=== PATIENT | female | born 1960 | race Caucasian/White ===

== ENCOUNTER 2020-04-30 10:52 | Outpatient (REF) | payer BC, SELFPAY ==
[2020-04-30 14:55] LABS: Thyroid Stimulating Hormone 2.38 uIU/mL (0.32-4.0)
[2020-04-30 15:13] LABS: Folate 12.9 ng/mL (> or = 4.0); Vitamin B12 278 pg/mL (200-900)
== END 2020-04-30 10:53 | disposition home or self-care (01) ==
LOC: HO.HMGCLDS 10:52
PROVIDERS: PCP Internal Medicine; Visit Provider Internal Medicine
DX: I10 Essential (primary) hypertension (principal); E03.9 Hypothyroidism, unspecified
CPT/HCPCS: 36415; 82607; 82746; 84443

== ENCOUNTER 2020-07-11 11:49 | Outpatient (REF) | payer BC, SELFPAY ==
--- NOTE | ~2020-07-11 | XR_ITS ---
EXAMINATION: XR SHOULDER, RIGHT XR SHOULDER, LEFT CLINICAL INFORMATION: Bilateral shoulder pain. COMPARISON: None TECHNIQUE: Each shoulder is imaged in 4 views. There are a total of 8 views. FINDINGS: Right: There is normal bony mineralization and no fracture or dislocation. Distal right clavicle is borderline elevated, possibly related to prior low-grade sprain. The glenohumeral joint is normal. There are no erosive changes. No visible rotator cuff calcifications. Left: There is normal bony mineralization. No fracture or dislocation. The acromioclavicular alignment is normal. The glenohumeral joint shows no narrowing or erosive change. There is mild borderline spurring greater tuberosity. No visible rotator cuff calcifications. XR/XR shoulder RT min 2V IMPRESSION: 1. Right: Borderline elevation distal right clavicle, possibly related to prior low-grade sprain. 2. Left: Mild spurring greater tuberosity. 3. No fracture, dislocation, erosive changes, or visible rotator cuff calcifications.
--- NOTE | ~2020-07-11 | XR_ITS ---
EXAMINATION: XR SHOULDER, RIGHT XR SHOULDER, LEFT CLINICAL INFORMATION: Bilateral shoulder pain. COMPARISON: None TECHNIQUE: Each shoulder is imaged in 4 views. There are a total of 8 views. FINDINGS: Right: There is normal bony mineralization and no fracture or dislocation. Distal right clavicle is borderline elevated, possibly related to prior low-grade sprain. The glenohumeral joint is normal. There are no erosive changes. No visible rotator cuff calcifications. Left: There is normal bony mineralization. No fracture or dislocation. The acromioclavicular alignment is normal. The glenohumeral joint shows no narrowing or erosive change. There is mild borderline spurring greater tuberosity. No visible rotator cuff calcifications. XR/XR shoulder LT min 2V IMPRESSION: 1. Right: Borderline elevation distal right clavicle, possibly related to prior low-grade sprain. 2. Left: Mild spurring greater tuberosity. 3. No fracture, dislocation, erosive changes, or visible rotator cuff calcifications.
== END 2020-07-11 11:50 | disposition home or self-care (01) ==
LOC: HO.HMGCX 11:49
PROVIDERS: PCP Internal Medicine; Visit Provider Internal Medicine
DX: M25.512 Pain in left shoulder (principal); M25.511 Pain in right shoulder
CPT/HCPCS: 73030

== ENCOUNTER 2020-07-16 08:58 | Day surgery (SDC) | payer BC, SELFPAY ==
--- NOTE | 2020-07-15 08:39 | P.CONAN_ITS ---
Documented by User: Twila Teixeira 07/15/20 08:39 HPI - Anesthesia Eval Consult details Narrative: 59yo F for Colonoscopy [facility] Active Problems Active Problems: All Active Problems (Updated 05/08/20 @ 13:04 by Tamar Bermudez MD) Shoulder pain, bilateral (Acute) Colon cancer screening (Acute) Vitamin B12 deficiency (Acute) Mammogram declined (Acute) GERD (gastroesophageal reflux disease) (Acute) Hypercholesterolemia (Acute) Knee osteoarthritis (Acute) Hypothyroid (Acute) Hypertension (Acute) Obesity (Acute) Past Medical History Medical History Fatty liver GERD (gastroesophageal reflux disease) Hypercholesterolemia Hypertension Hypothyroid Knee osteoarthritis Mammogram declined Obesity PUD (peptic ulcer disease) Syncope Vitamin B12 deficiency Family History Family History Father No problems noted. Mother No problems noted. Paternal Uncle Lung cancer Esophageal cancer Maternal Uncle Myocardial infarction Surgical History Surgical History History of D&C History of surgery Social History Social History Smoking Status: Never smoker Use of substances other than those prescribed or required for medical reasons: No Advance Directives: No Advance Directives Information Provided: Yes Meds Allergies Allergy/AdvReac Type Severity Reaction Status Date / Time metoprolol Allergy Unknown epig pain? Verified 07/16/20 09:16 Home Medications Medication Instructions Recorded Confirmed Last Taken Type acetaminophen 650 mg 650 mg PO Q12H 02/02/20 05/08/20 Unknown History tablet,extended release cholecalciferol (vitamin D3) 25 25 mcg PO DAILY 02/02/20 05/08/20 Unknown History mcg (1,000 unit) capsule Exam Exam Date and Time: July 15, 2020 0839 Assessment and Plan Assessment Anesthesia Assessment: Chart Reviewed Documented by User: Katina Samson 07/16/20 11:17 [facility] Past Medical History Medical History Fatty liver GERD (gastroesophageal reflux disease) Hypercholesterolemia Hypertension Hypothyroid Knee osteoarthritis Mammogram declined Obesity PUD (peptic ulcer disease) Syncope Vitamin B12 deficiency Family History Family History Father No problems noted. Mother No problems noted. Paternal Uncle Lung cancer Esophageal cancer Maternal Uncle Myocardial infarction Surgical History Surgical History History of D&C History of surgery Social History Social History Smoking Status: Never smoker Use of substances other than those prescribed or required for medical reasons: No Advance Directives: No Advance Directives Information Provided: Yes Meds Allergies Allergy/AdvReac Type Severity Reaction Status Date / Time metoprolol Allergy Unknown epig pain? Verified 07/16/20 09:16 Home Medications Medication Instructions Recorded Confirmed Last Taken Type acetaminophen 650 mg 650 mg PO Q12H 02/02/20 05/08/20 Unknown History tablet,extended release cholecalciferol (vitamin D3) 25 25 mcg PO DAILY 02/02/20 05/08/20 Unknown History mcg (1,000 unit) capsule Exam Airway Mallampati Class: II TM Dist: >3cm Neck ROM: Full Loose/Missing/Broken Teeth: No Heart: RRR Lungs: CTA Assessment and Plan Assessment Anesthesia Assessment: Anesthesia Plan Discussed and Chart Reviewed Final Anesthetic Review NPO: Yes ASA Class: II Final Preanesthetic Review: Meds/Allgs Chart Reviewed, Consent Obtained/Reviewed and Anes Risks/Benef Reviewed Patient Risk: Low Procedure Risk: Low Anesthetic Plan Anesthetic Plan: MAC: Disposition: Standard PACU
[2020-07-16 09:16] VITALS: RESP 16; TEMP 36.6; BMI 33.3
[2020-07-16] MEDS: Lactated Ringers 1,000 ML 100 ML IVCONT (09:41)
--- NOTE | 2020-07-16 11:00 | MHC.SHP ---
Pre-Procedural Eval Section A The patient is an INPATIENT: No Changes since office visit: No Cold of Flu in the past 2 weeks, No New Medical Problems, No Changes in Medication and No Patient answered all questions The History & Physical has been completed within 30 days and I have reviewed it.: Yes Section B Chief Complaint: screening Allergies: Allergies Allergy/AdvReac Type Severity Reaction Status Date / Time metoprolol Allergy Unknown epig pain? Verified 07/16/20 09:16 Plan I have reviewed the history and physical and performed a pertinent physical examination on my patient. No changes have occurred unless specified.
[2020-07-16 11:31] VITALS: BP 108/63; PULSE 87; RESP 18; TEMP 36.3; O2SAT 96
--- NOTE | 2020-07-16 11:34 | PM.OP ---
Brief Operative Note Date of Service: 07/16/20 Pre-op diagnosis: screening Post-op diagnosis: same Procedure: colonoscopy Surgeon: Gumaro Marcial Anesthesia: MAC Estimated blood loss (mL): 0 Pathology: none sent Condition: stable Disposition: PACU
[2020-07-16 11:46] VITALS: BP 112/80; PULSE 78; RESP 18; O2SAT 98
--- NOTE | 2020-07-16 13:15 | OP_ITS ---
SURGEON: Gumaro Marcial MD INDICATIONS: Colon cancer screening and prior history of adenomatous colon polyps. PREOPERATIVE DIAGNOSIS: POSTOPERATIVE DIAGNOSIS: PROCEDURE PERFORMED: Colonoscopy to the terminal ileum. ESTIMATED BLOOD LOSS: COMPLICATIONS: ANESTHESIA: ASSISTANTS: SPECIMENS: MEDICATIONS: Monitored anesthesia care. DESCRIPTION OF PROCEDURE: History and physical performed. The risks and benefits of the procedure were explained to the patient. An informed consent was obtained. The patient was placed in left lateral decubitus position. A digital rectal exam was performed, it was found to be normal. The Olympus pediatric video colonoscope was introduced into the rectum and advanced to the cecum without difficulty. The cecum was identified by transillumination, palpation, and identification of ileocecal valve. Examination was performed. The scope was removed. She tolerated the procedure well and was returned to the recovery area in stable condition. FINDINGS: Limited examination of the terminal ileum was normal. The visualized colonic mucosa was normal. The quality of prep was good. No polyps were identified. Retroflexed examination showed small internal hemorrhoids. There was mild diverticulosis mainly involving the sigmoid. IMPRESSION: Normal colonoscopy. RECOMMENDATION: 1. Follow up as needed. 2. Repeat colonoscopy is recommended in 5 years because of personal history of colon polyps. MD CHERRI Bhatia/ALANA / [phone]
== END 2020-07-16 12:33 | disposition home or self-care (01) ==
PROVIDERS: PCP Internal Medicine; Visit Provider Internal Medicine Gastroenterology
PROC: 0DJD8ZZ Inspection of Lower Intestinal Tract, Via Natural or Artificial Opening Endoscopic (ICD-10-PCS; CPT 45378; principal; 2020-07-16 10:00)
DX: Z12.11 Encounter for screening for malignant neoplasm of colon (principal); Z86.010 Personal history of colon polyps; K57.30 Diverticulosis of large intestine without perforation or abscess without bleeding; K64.8 Other hemorrhoids; K21.9 Gastro-esophageal reflux disease without esophagitis; I10 Essential (primary) hypertension; K76.0 Fatty (change of) liver, not elsewhere classified; E53.8 Deficiency of other specified B group vitamins; Z79.899 Other long term (current) drug therapy; Z87.891 Personal history of nicotine dependence
CPT/HCPCS: 45378

== ENCOUNTER 2020-11-25 10:46 | Outpatient (REF) | payer BC, SELFPAY ==
--- NOTE | ~2020-11-25 | XR_ITS ---
EXAMINATION: XR KNEE, RIGHT XR LUMBOSACRAL SPINE CLINICAL INDICATION: Back pain. COMPARISON: None. TECHNIQUE: 2 views of the right knee. 3 views of the lumbosacral spine. FINDINGS: RIGHT KNEE: 2 views of the right knee show degenerative change which appears moderate bordering marked. Significant loss of joint space laterally. Sclerotic changes and osteophytic change at the joint margins. Degenerative change at the patellofemoral articulation. Findings which may suggest loose bodies within the joint. Possible small joint effusion. LUMBOSACRAL SPINE: 3 views of the lumbosacral spine demonstrate mild grade 1 anterolisthesis of L4 on L5 and mild grade 1 anterolisthesis of L5 on S1. Likely degenerative in nature. Hypertrophic changes involving the posterior elements from L3-L4 to L5-S1. There is no listhesis or compression injury. Some degeneration in the SI joints is also noted. The vertebral heights are well preserved. Some loss of disc height mostly noted at L5-S1, more mild at other areas. XR/XR lumbar spine 2-3V IMPRESSION: Moderate to marked degeneration in the right knee and moderate bordering marked degenerative changes in the lumbosacral spine most noted in the posterior elements with areas of listhesis.
--- NOTE | ~2020-11-25 | XR_ITS ---
EXAMINATION: XR KNEE, RIGHT XR LUMBOSACRAL SPINE CLINICAL INDICATION: Back pain. COMPARISON: None. TECHNIQUE: 2 views of the right knee. 3 views of the lumbosacral spine. FINDINGS: RIGHT KNEE: 2 views of the right knee show degenerative change which appears moderate bordering marked. Significant loss of joint space laterally. Sclerotic changes and osteophytic change at the joint margins. Degenerative change at the patellofemoral articulation. Findings which may suggest loose bodies within the joint. Possible small joint effusion. LUMBOSACRAL SPINE: 3 views of the lumbosacral spine demonstrate mild grade 1 anterolisthesis of L4 on L5 and mild grade 1 anterolisthesis of L5 on S1. Likely degenerative in nature. Hypertrophic changes involving the posterior elements from L3-L4 to L5-S1. There is no listhesis or compression injury. Some degeneration in the SI joints is also noted. The vertebral heights are well preserved. Some loss of disc height mostly noted at L5-S1, more mild at other areas. XR/XR knee RT 2V IMPRESSION: Moderate to marked degeneration in the right knee and moderate bordering marked degenerative changes in the lumbosacral spine most noted in the posterior elements with areas of listhesis.
[2020-11-25 14:09] LABS: MANUAL DIFF FLAG NO
[2020-11-25 14:15] LABS: Basophils Percent Auto 0.5 % (0-2); Eosinophils Absolute Auto 0.1 X10*3/uL (0.0-0.4); Eosinophils Percent Auto 1.5 % (0-4); Hematocrit 43.4 % (37-47); Hemoglobin 13.9 g/dl (12.0-16.0); Imm Gran Abs Auto 0.04 X10*3/uL (0.00-0.03); Imm Gran Pct Auto 0.5 % (0.0-0.4); Lymphocytes Absolute Auto 2.7 X10*3/uL (1.2-4.9); Lymphocytes Percent Auto 34.5 % (20-40); Mean Corpuscular Hemoglobin 30.6 pg (27.0-33.0); Mean Corpuscular Volume 95.6 fL (80-98); Mean Platelet Volume 11.2 fL (9.4-12.3); Monocytes Absolute Auto 0.5 X10*3/uL (0.1-1.2); Monocytes Percent Auto 6.7 % (2-11); Neutrophils Absolute Auto 4.5 X10*3/uL (2.0-8.3); Neutrophils Percent Auto 56.3 % (45-73); Platelet Count 242 X10*3/uL (160-400); Red Blood Count 4.54 X10*6/uL (4.20-5.50); Red Cell Distribution Width 13.6 % (11.0-16.0)
[2020-11-25 14:31] LABS: Alanine Aminotransferase 27 U/L (0-31); Albumin Level 4.5 g/dL (3.5-5.0); Alkaline Phosphatase 72 U/L (39-117); Anion Gap 15 (12-20); Aspartate Amino Transferase 24 U/L (5-31); Bilirubin Total 0.6 mg/dL (0.0-1.0); Blood Urea Nitrogen 15 mg/dL (9-16); Calcium 9.7 mg/dL (8.4-10.2); Carbon Dioxide 28 mmol/L (22-29); Chloride 105 mmol/L (96-108); Cholesterol 209 mg/dL; Estimated Glomerular Filt Rate > 60; Glucose Random 102 mg/dL (60-115); HDL Cholesterol 48 mg/dL; LDL Cholesterol Calculated 126 mg/dl; Potassium 4.9 mmol/L (3.3-5.1); Sodium 143 mmol/L (135-145); Total Protein 7.3 g/dL (6.5-8.0); Triglycerides 178 mg/dL
[2020-11-25 14:54] LABS: Free T4 (Free Thyroxine) 1.04 ng/dL (0.71-1.85); Thyroid Stimulating Hormone 4.14 uIU/mL (0.32-4.0); Vitamin D 25-OH Total 36.4 ng/mL (>30)
[2020-11-25 16:26] LABS: Folate 15.4 ng/mL (> or = 4.0); Vitamin B12 567 pg/mL (200-900)
== END 2020-11-25 10:47 | disposition home or self-care (01) ==
LOC: HO.HMGCLDS 10:46
PROVIDERS: PCP Internal Medicine; Visit Provider Internal Medicine
DX: M25.561 Pain in right knee (principal); E78.00 Pure hypercholesterolemia, unspecified
CPT/HCPCS: 36415; 72100; 73560; 80053; 80061; 82306; 82607; 82746; 84439; 84443; 85025

== ENCOUNTER 2021-02-07 16:58 | Outpatient (REF) | payer BC, SELFPAY | END 2021-02-07 16:59 | disposition home or self-care (01) | LOC: HO.LNP 16:58 | PROVIDERS: Visit Provider Physician Assistant Medical | DX: Z20.822 Contact with and (suspected) exposure to COVID-19 (principal); K52.9 Noninfective gastroenteritis and colitis, unspecified | CPT/HCPCS: U0003; U0005 ==

== ENCOUNTER 2021-03-05 10:22 | Outpatient (REF) | payer BC, SELFPAY ==
[2021-03-05 12:12] LABS: Free T4 (Free Thyroxine) 0.92 ng/dL (0.71-1.85); Thyroid Stimulating Hormone 3.05 uIU/mL (0.32-4.0)
== END 2021-03-05 10:23 | disposition home or self-care (01) ==
LOC: HO.HMGCLDS 10:22
PROVIDERS: PCP Internal Medicine; Visit Provider Internal Medicine
DX: E03.9 Hypothyroidism, unspecified (principal)
CPT/HCPCS: 36415; 84439; 84443

== ENCOUNTER 2021-04-25 11:23 | Inpatient (IN) | payer BC, SELFPAY ==
--- NOTE | ~2021-04-25 | CT_ITS ---
EXAMINATION: CT ANGIOGRAM OF THE CHEST WITH AND WITHOUT CONTRAST (CT PULMONARY ANGIOGRAM FOR PE) CLINICAL INFORMATION: Reason for Exam hypoxia, COVID + COMPARISON: None TECHNIQUE: Prior to contrast administration, noncontrast localization images were obtained. Subsequently, multidetector volumetric imaging was performed from the thoracic inlet to below the diaphragms following the administration of 80 mL Omnipaque 350 intravenous contrast. No contrast reaction reported Sagittal, coronal, and MIP oblique sagittal reformatted images were obtained on the CT workstation, uploaded to PACS, and reviewed. This CT examination was performed using dose optimization techniques as appropriate, variously including the following: *Automated exposure control *Adjustment of mA and/or kV according to patient size (this includes techniques or standardized protocols for targeted exams where dose is matched to indication/reason for exam; i.e. extremities or head) *Use of iterative reconstruction technique Total exam dose-length product 383 mGy-cm FINDINGS: QUALITY OF STUDY/CONTRAST BOLUS: Satisfactory. PULMONARY ARTERIES: No central or segmental pulmonary emboli. THORACIC AORTA: No aneurysm or dissection. LUNG: There are multiple pleural-based patchy opacities in both upper lobes, both lower lobes, lingula and right middle lobe. PLEURA: No pleural effusion or pneumothorax. MEDIASTINUM: Normal heart size. No pericardial effusion. No hilar or mediastinal lymphadenopathy. No evidence of septal bowing or right heart strain. CHEST WALL/AXILLA: No axillary or internal mammary lymphadenopathy. OSSEOUS STRUCTURES: There is moderate spondylosis mid and lower dorsal spine. No lytic or sclerotic process seen. UPPER ABDOMEN: The liver is hypoattenuated without any focal lesion or enlargement. There are multiple radiolucent gallstones without wall thickening No reflux of contrast into the hepatic veins to suggest elevated right heart pressures. CT/CT angio chest PE protocol IMPRESSION: No evidence of PE. No evidence of DVT. Multi lobar infiltrates. Cholelithiasis without wall thickening. Hepatic steatosis VTE: negative
[2021-04-25 12:20] VITALS: BP 120/90; O2SAT 90
--- NOTE | 2021-04-25 12:21 | ECG_ITS ---
Test Reason : DYSPNEA Blood Pressure : / mmHG Vent. 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
[2021-04-25 12:31] VITALS: BP 108/68; PULSE 89; RESP 22; TEMP 36.6; O2SAT 93; BMI 34.9
--- NOTE | 2021-04-25 12:35 | ED_ITS ---
HPI - SOB/Dyspnea General Chief Complaint: Dyspnea Stated Complaint: +covid, sob on exertion, 4L satting 90-92%,80%RA Time Seen by Provider: 04/25/21 11:48 Source: patient and EMS Mode of arrival: EMS Limitations: no limitations History of Present Illness HPI Narrative: 60-year-old female with a history of hypothyroidism, GERD, high cholesterol, hypertension who was on vaccinated for COVID presents with 4 days o f increasing shortness of breath and cough. Patient tells me that 4 days ago she tested positive for COVID. She has been sick for greater than 10 days with symptoms of COVID. Her is currently hospitalized with COVID. She tells me over the last 4 days she feels like she is getting worse, she is having shortness of breath with chest discomfort with coughing. She is having fevers under subjective and mainly at nighttime. She is also having some diarrhea. She denies any vomiting or abdominal pain. Per EMS room air saturation was 80% Related Data Home Medications Medication Instructions Recorded Confirmed cholecalciferol (vitamin D3) 25 25 mcg PO DAILY 02/02/20 04/25/21 mcg (1,000 unit) capsule atenolol 25 mg tablet 12.5 mg PO DAILY 04/25/21 04/25/21 Previous Rx's Medication Instructions Recorded cyanocobalamin (vitamin B-12) 1,000 mcg PO DAILY #30 cap 05/08/20 1,000 mcg capsule levothyroxine 50 mcg tablet 50 mcg PO DAILY #90 tab 05/08/20 Allergies Allergy/AdvReac Type Severity Reaction Status Date / Time metoprolol Allergy Unknown epig pain? Verified 03/12/21 12:58 Review of Systems Review of Systems: Yes all other systems are reviewed and are negative Constitutional: Constitutional: Reports no additional constitutional complaints, Denies body ache(s), Denies chills, Reports fever(s), Denies headache(s) and Reports weakness Eyes: Eyes: Reports no additional eye complaints and Denies change in vision ENT: Reports system reviewed and no additional complaints, except as documented, Denies dizziness, Denies headache(s), Denies nasal congestion, Denies nasal discharge and Denies neck pain Cardiovascular: Cardiovascular: Reports no additional cardiovascular complaints, Denies chest pain, Denies leg edema, Denies dyspnea and Reports dyspnea on exertion Respiratory: Respiratory: Reports no additional respiratory complaints, Reports cough, Denies dyspnea and Reports dyspnea on exertion Gastrointestinal: Gastrointestinal: Reports no additional gastrointestinal complaints, Denies abdominal pain, Reports diarrhea, Denies nausea and Denies vomiting Genitourinary: Genitourinary: Reports no additional female genitourinary complaints and Denies urinary incontinence Musculoskeletal: Musculoskeletal: Reports no additional musculoskeletal complaints, Denies back pain, Denies arthralgias, Denies joint swelling, Denies neck pain, Denies numbness and Denies tingling Integumentary/Breasts: Skin/Breast: Reports system reviewed and no additional complaints, except as docu and Denies rash Neurologic: Reports system reviewed and no additional complaints, except as documented, Denies Abnormal speech present, Denies dizziness, Denies headache(s), Denies numbness, Denies tingling and Reports weakness PMFSH Past Medical History Attestation statement: The following information was validated with the patient. Source: old records reviewed and nursing notes reviewed Medical History Fatty liver GERD (gastroesophageal reflux disease) Hypercholesterolemia Hypertension Hypothyroid Knee osteoarthritis Mammogram declined Obesity PUD (peptic ulcer disease) Syncope Vitamin B12 deficiency Surgical History History of D&C History of surgery Family History Family History Father No problems noted. Mother No problems noted. Paternal Uncle Lung cancer Esophageal cancer Throat cancer Maternal Uncle Myocardial infarction Paternal Aunt Lung cancer Social History Social History Housing: House Alcohol intake: never Patient Tobacco Use Status: Never used Tobacco Tobacco use type: Cigarette e-Cigarette/Vaping Use: Never Used Second Hand Smoke Exposure: No Use of substances other than those prescribed or required for medical reasons: No Advance Directives: No Advance Directives Information Provided: Yes Patient : No service: No Current occupational status: disabled Physical Exam Vital Signs: Vital Signs: Last Vital Signs Temp 99.5 F 04/25/21 15:08 Pulse 77 04/25/21 15:08 Resp 22 H 04/25/21 15:08 BP 115/76 04/25/21 15:08 Pulse Ox 90 L 04/25/21 15:08 Oxygen Flow Rate 4 04/25/21 12:31 BMI result Body Mass Index 34.9 Const: General: cooperative, healthy appearing, comfortable and no acute distress Orientation/consciousness: patient oriented x3 Limitations: no limitations HENMT: Head: Yes normal to inspection Ears: hearing grossly normal bilaterally General nose exam: Normal external nose present Face and sinus: Yes normal facial exam Mouth: Normal oral and palatal mucosa present Throat: Yes posterior oropharynx normal Eyes: General: appearance normal, both eyes and all related structures Pupils: Equal, round and reactive pupils present Neck: Neck: Yes normal visual inspection Chest: Chest palpation & inspection: normal inspection of the chest Resp: Other: tachypnea with rate 22-24 Auscultation: clear to auscultation bilaterally Cardio: Rate: regular rate Rhythm: regular rhythm Peripheral pulses: Peripheral pulses 2+ throughout GI: Inspection: Yes normal to inspection Palpation (GI): Soft to palpation and nontender Auscultation: normal bowel sounds Back/Spine/Pelvis: Thoracic/Lumbar Spine: thoracic and lumbar spine normal to inspection Skin: General skin exam: no rashes or lesions noted Neuro: General: patient oriented x3, no focal motor deficits and normal sensa tion to monofilament Cranial nerves: Yes Equal, round and reactive pupils present Cognition (Neuro): normal cognition Speech: No Abnormal speech present Gait exam (Neuro): Normal gait present Motor exam (neuro): 5/5 motor strength present throughout Extrem: General: Yes normal to inspection, Yes no pedal edema and Yes no calf tenderness Course Course Course Narrative: this is a 60-year-old female known COVID positive who is on vaccinated for COVID that presents with progressive shortness of breath, cough, chest discomfort with coughing over the last 4 days. For EMS the patient was hypoxic with room air saturation of 80% on arrival. On arrival to the ER the patient is tachypneic with a rate of 22-24. Will check chest x-ray, EKG, labs, COVID screen. Anticipate admission due to hypoxia. Decadron and Gentle hydration ordered. Tachypnea and hypoxia is from a viral infection 1600- Findings: No evidence of PE. ? No evidence of DVT. ? Multi lobar infiltrates. ? Cholelithiasis without wall thickening. Hepatic steatosis ? No abdominal pain, vomiting or focal tenderness consistent with cholecystitis. Plan for admit. Infiltrates are from viral pneumonia secondary to COVID-19 infection. Discussed patient with Meredith JUAREZ who accepted admission MDM - SOB/Dyspnea Medical Records Attestation: I reviewed the patient's medical records. Lab Data Attestation: I reviewed the patient's lab results. Result diagrams: 04/25/21 13:54 04/25/21 13:54 Labs: Lab Results 04/25/21 04/25/21 04/25/21 Range/Units 13:54 13:54 13:54 WBC 6.7 (4.8-10.8) X10*3/uL RBC 4.08 L (4.20-5.50) X10*6/uL Hgb 12.6 (12.0-16.0) g/dl Hct 37.1 (37.0-47.0) % MCV 90.9 (80.0-98.0) fL MCH 30.9 (27.0-33.0) pg MCHC 34.0 (31.0-35.0) g/dl RDW 13.9 (11.0-16.0) % Plt Count 219 (160-400) X10*3/uL MPV 10.5 (9.4-12.3) fL Immature Gran % (Auto) 0.6 H (0.0-0.4) % Neut % (Auto) 81.7 H (45-73) % Lymph % (Auto) 12.7 L (20-40) % [place] % (Auto) 4.9 (2-11) % Eos % (Auto) 0.0 (0-4) % Baso % (Auto) 0.1 (0-2) % Lymph # (Auto) 0.9 L (1.2-4.9) X10*3/uL [place] # (Auto) 0.3 (0.1-1.2) X10*3/uL Eos # (Auto) 0.0 (0.0-0.4) X10*3/uL Baso # (Auto) 0.0 (0.0-0.2) X10*3/uL Abs Immat Gran (auto) 0.04 H (0.00-0.03) X10*3/uL Absolute Neuts (auto) 5.4 (2.0-8.3) x10*3/uL Absolute Nucleated RBC 0.000 (0.0-0.012) X10*3/uL Nucleated RBC % (auto) 0.0 (0.0-0.2) /100WBC Smear Tech's Comments VERIFIED PT (9.9-13.0) SEC INR (0.9-1.1) APTT (24.1-38.0) SEC D-Dimer High Sensitivty 437 NG/ML VBG pH (7.32-7.43) VBG pCO2 mmHg VBG pO2 mmHg VBG HCO3 (22-26) mmol/L VBG O2 Saturation % VBG Base Excess mmol/L Sodium 136 (135-145) mmol/L Potassium 3.4 D (3.3-5.1) mmol/L Chloride 102 (96-108) mmol/L Carbon Dioxide 21 L (22-29) mmol/L Anion Gap 16 (12-20) BUN 12 (9-16) mg/dL Creatinine 0.65 (0.5-1.4) mg/dL Estim Creat Clear Calc 107.6 Estimated GFR > 60 Random Glucose 106 (60-115) mg/dL Lactic Acid (0.5-2.0) mmol/L Calcium 8.2 L D (8.4-10.2) mg/dL Magnesium 2.4 (1.6-2.6) mg/dL Ferritin (10-250) ng/mL Total Bilirubin 0.7 (0.0-1.0) mg/dL Direct Bilirubin 0.4 (0.0-0.5) mg/dL AST 36 H D (5-31) U/L ALT 27 (0-31) U/L Alkaline Phosphatase 57 D (39-117) U/L Lactate Dehydrogenase 476 H (122-220) U/L Total Creatine Kinase 113 (26-140) U/L Troponin I High Sens (<3.5-17.0) ng/L C-Reactive Protein 8.81 H (< or = 0.50) mg/dL B-Natriuretic Peptide (<100) pg/mL Total Protein 5.9 L (6.5-8.0) g/dL Albumin 3.4 L D (3.5-5.0) g/dL Lipase 61 (8-78) U/L Procalcitonin ng/mL COVID-19 ([facility]ST[facility]) (Negative) COVID-19 Clin Com 04/25/21 04/25/21 04/25/21 Range/Units 13:54 13:54 13:54 WBC (4.8-10.8) X10*3/uL RBC (4.20-5.50) X10*6/uL Hgb (12.0-16.0) g/dl Hct (37.0-47.0) % MCV (80.0-98.0) fL MCH (27.0-33.0) pg MCHC (31.0-35.0) g/dl RDW (11.0-16.0) % Plt Count (160-400) X10*3/uL MPV (9.4-12.3) fL Immature Gran % (Auto) (0.0-0.4) % Neut % (Auto) (45-73) % Lymph % (Auto) (20-40) % [place] % (Auto) (2-11) % Eos % (Auto) (0-4) % Baso % (Auto) (0-2) % Lymph # (Auto) (1.2-4.9) X10*3/uL [place] # (Auto) (0.1-1.2) X10*3/uL Eos # (Auto) (0.0-0.4) X10*3/uL Baso # (Auto) (0.0-0.2) X10*3/uL Abs Immat Gran (auto) (0.00-0.03) X10*3/uL Absolute Neuts (auto) (2.0-8.3) x10*3/uL Absolute Nucleated RBC (0.0-0.012) X10*3/uL Nucleated RBC % (auto) (0.0-0.2) /100WBC Smear Tech's Comments PT 13.3 H (9.9-13.0) SEC INR 1.2 H (0.9-1.1) APTT 27.2 (24.1-38.0) SEC D-Dimer High Sensitivty NG/ML VBG pH (7.32-7.43) VBG pCO2 mmHg VBG pO2 mmHg VBG HCO3 (22-26) mmol/L VBG O2 Saturation % VBG Base Excess mmol/L Sodium (135-145) mmol/L Potassium (3.3-5.1) mmol/L Chloride (96-108) mmol/L Carbon Dioxide (22-29) mmol/L Anion Gap (12-20) BUN (9-16) mg/dL Creatinine (0.5-1.4) mg/dL Estim Creat Clear Calc Estimated GFR Random Glucose (60-115) mg/dL Lactic Acid (0.5-2.0) mmol/L Calcium (8.4-10.2) mg/dL Magnesium (1.6-2.6) mg/dL Ferritin (10-250) ng/mL Total Bilirubin (0.0-1.0) mg/dL Direct Bilirubin (0.0-0.5) mg/dL AST (5-31) U/L ALT (0-31) U/L Alkaline Phosphatase (39-117) U/L Lactate Dehydrogenase (122-220) U/L Total Creatine Kinase (26-140) U/L Troponin I High Sens (<3.5-17.0) ng/L C-Reactive Protein (< or = 0.50) mg/dL B-Natriuretic Peptide 17 (<100) pg/mL Total Protein (6.5-8.0) g/dL Albumin (3.5-5.0) g/dL Lipase (8-78) U/L Procalcitonin ng/mL COVID-19 ([facility]) Positive A (Negative) COVID-19 Clin Com See Note 04/25/21 04/25/21 04/25/21 Range/Units 13:54 13:54 13:54 WBC (4.8-10.8) X10*3/uL RBC (4.20-5.50) X10*6/uL Hgb (12.0-16.0) g/dl Hct (37.0-47.0) % MCV (80.0-98.0) fL MCH (27.0-33.0) pg MCHC (31.0-35.0) g/dl RDW (11.0-16.0) % Plt Count (160-400) X10*3/uL MPV (9.4-12.3) fL Immature Gran % (Auto) (0.0-0.4) % Neut % (Auto) (45-73) % Lymph % (Auto) (20-40) % [place] % (Auto) (2-11) % Eos % (Auto) (0-4) % Baso % (Auto) (0-2) % Lymph # (Auto) (1.2-4.9) X10*3/uL [place] # (Auto) (0.1-1.2) X10*3/uL Eos # (Auto) (0.0-0.4) X10*3/uL Baso # (Auto) (0.0-0.2) X10*3/uL Abs Immat Gran (auto) (0.00-0.03) X10*3/uL Absolute Neuts (auto) (2.0-8.3) x10*3/uL Absolute Nucleated RBC (0.0-0.012) X10*3/uL Nucleated RBC % (auto) (0.0-0.2) /100WBC Smear Tech's Comments PT (9.9-13.0) SEC INR (0.9-1.1) APTT (24.1-38.0) SEC D-Dimer High Sensitivty NG/ML VBG pH (7.32-7.43) VBG pCO2 mmHg VBG pO2 mmHg VBG HCO3 (22-26) mmol/L VBG O2 Saturation % VBG Base Excess mmol/L Sodium (135-145) mmol/L Potassium (3.3-5.1) mmol/L Chloride (96-108) mmol/L Carbon Dioxide (22-29) mmol/L Anion Gap (12-20) BUN (9-16) mg/dL Creatinine (0.5-1.4) mg/dL Estim Creat Clear Calc Estimated GFR Random Glucose (60-115) mg/dL Lactic Acid 1.1 (0.5-2.0) mmol/L Calcium (8.4-10.2) mg/dL Magnesium (1.6-2.6) mg/dL Ferritin 991 H (10-250) ng/mL Total Bilirubin (0.0-1.0) mg/dL Direct Bilirubin (0.0-0.5) mg/dL AST (5-31) U/L ALT (0-31) U/L Alkaline Phosphatase (39-117) U/L Lactate Dehydrogenase (122-220) U/L Total Creatine Kinase (26-140) U/L Troponin I High Sens 3.9 (<3.5-17.0) ng/L C-Reactive Protein (< or = 0.50) mg/dL B-Natriuretic Peptide (<100) pg/mL Total Protein (6.5-8.0) g/dL Albumin (3.5-5.0) g/dL Lipase (8-78) U/L Procalcitonin ng/mL COVID-19 ([facility]) (Negative) COVID-19 Clin Com 04/25/21 04/25/21 Range/Units 13:54 13:58 WBC (4.8-10.8) X10*3/uL RBC (4.20-5.50) X10*6/uL Hgb (12.0-16.0) g/dl Hct (37.0-47.0) % MCV (80.0-98.0) fL MCH (27.0-33.0) pg MCHC (31.0-35.0) g/dl RDW (11.0-16.0) % Plt Count (160-400) X10*3/uL MPV (9.4-12.3) fL Immature Gran % (Auto) (0.0-0.4) % Neut % (Auto) (45-73) % Lymph % (Auto) (20-40) % [place] % (Auto) (2-11) % Eos % (Auto) (0-4) % Baso % (Auto) (0-2) % Lymph # (Auto) (1.2-4.9) X10*3/uL [place] # (Auto) (0.1-1.2) X10*3/uL Eos # (Auto) (0.0-0.4) X10*3/uL Baso # (Auto) (0.0-0.2) X10*3/uL Abs Immat Gran (auto) (0.00-0.03) X10*3/uL Absolute Neuts (auto) (2.0-8.3) x10*3/uL Absolute Nucleated RBC (0.0-0.012) X10*3/uL Nucleated RBC % (auto) (0.0-0.2) /100WBC Smear Tech's Comments PT (9.9-13.0) SEC INR (0.9-1.1) APTT (24.1-38.0) SEC D-Dimer High Sensitivty NG/ML VBG pH 7.46 H (7.32-7.43) VBG pCO2 29 mmHg VBG pO2 62 mmHg VBG HCO3 21 L (22-26) mmol/L VBG O2 Saturation 88.0 % VBG Base Excess -1.1 mmol/L Sodium (135-145) mmol/L Potassium (3.3-5.1) mmol/L Chloride (96-108) mmol/L Carbon Dioxide (22-29) mmol/L Anion Gap (12-20) BUN (9-16) mg/dL Creatinine (0.5-1.4) mg/dL Estim Creat Clear Calc Estimated GFR Random Glucose (60-115) mg/dL Lactic Acid (0.5-2.0) mmol/L Calcium (8.4-10.2) mg/dL Magnesium (1.6-2.6) mg/dL Ferritin (10-250) ng/mL Total Bilirubin (0.0-1.0) mg/dL Direct Bilirubin (0.0-0.5) mg/dL AST (5-31) U/L ALT (0-31) U/L Alkaline Phosphatase (39-117) U/L Lactate Dehydrogenase (122-220) U/L Total Creatine Kinase (26-140) U/L Troponin I High Sens (<3.5-17.0) ng/L C-Reactive Protein (< or = 0.50) mg/dL B-Natriuretic Peptide (<100) pg/mL Total Protein (6.5-8.0) g/dL Albumin (3.5-5.0) g/dL Lipase (8-78) U/L Procalcitonin 0.08 ng/mL COVID-19 ([facility]) (Negative) COVID-19 Clin Com Imaging Data CT scan - chest: Attestation: I personally reviewed and interpreted this imaging study as follows: Radiologist's impression: No evidence of PE. ? No evidence of DVT. ? Multi lobar infiltrates. ? Cholelithiasis without wall thickening. Hepatic steatosis ? VTE: negative Discharge Plan Discharge Clinical Impression: COVID-19, Viral pneumonia, Hypoxia Clinical Impression: (Ruled Out): Congestive heart failure Patient Disposition: Admitted As Inpatient
[2021-04-25] MEDS: dexAMETHasone sod phosphate 4 MG/ML VIAL 6 MG IVPUSH (13:14)
[2021-04-25] MEDS: 0.9 % Sodium Chloride 500 ML 999 ML IV (13:15)
--- NOTE | 2021-04-25 13:49 | PHA.MEDREC ---
Pharmacy Consult ? Medication Reconciliation Pharmacy has completed the medication reconciliation. Med rec based on claim history and past list, called patient 3 times, left one voicemail.
[2021-04-25 14:03] LABS: Venous Blood Gas Refer to POC result
[2021-04-25 14:04] LABS: VBG Base Excess -1.1 mmol/L; VBG HCO3 21 mmol/L (22-26); VBG pCO2 29 mmHg; VBG pH 7.46 (7.32-7.43); VBG pO2 62 mmHg
[2021-04-25 14:07] LABS: Basophils Percent Auto 0.1 % (0-2); Hematocrit 37.1 % (37.0-47.0); Hemoglobin 12.6 g/dl (12.0-16.0); Imm Gran Abs Auto 0.04 X10*3/uL (0.00-0.03); Imm Gran Pct Auto 0.6 % (0.0-0.4); Lymphocytes Absolute Auto 0.9 X10*3/uL (1.2-4.9); Lymphocytes Percent Auto 12.7 % (20-40); MANUAL DIFF FLAG SCAN; Mean Corpuscular Hemoglobin 30.9 pg (27.0-33.0); Mean Corpuscular Volume 90.9 fL (80.0-98.0); Mean Platelet Volume 10.5 fL (9.4-12.3); Monocytes Absolute Auto 0.3 X10*3/uL (0.1-1.2); Monocytes Percent Auto 4.9 % (2-11); Neutrophils Absolute Auto 5.4 x10*3/uL (2.0-8.3); Neutrophils Percent Auto 81.7 % (45-73); Platelet Count 219 X10*3/uL (160-400); Red Blood Count 4.08 X10*6/uL (4.20-5.50); Red Cell Distribution Width 13.9 % (11.0-16.0); SCAN SMEAR FLAG 1; White Blood Count 6.7 X10*3/uL (4.8-10.8)
[2021-04-25 14:16] LABS: Lactic Acid 1.1 mmol/L (0.5-2.0)
[2021-04-25 14:22] LABS: Alanine Aminotransferase 27 U/L (0-31); Albumin Level 3.4 g/dL (3.5-5.0); Alkaline Phosphatase 57 U/L (39-117); Anion Gap 16 (12-20); Aspartate Amino Transferase 36 U/L (5-31); Bilirubin Direct 0.4 mg/dL (0.0-0.5); Bilirubin Total 0.7 mg/dL (0.0-1.0); Blood Urea Nitrogen 12 mg/dL (9-16); C Reactive Protein 8.81 mg/dL (< or = 0.50); Calcium 8.2 mg/dL (8.4-10.2); Carbon Dioxide 21 mmol/L (22-29); Chloride 102 mmol/L (96-108); Creatinine Clr Calc Pharmacy 107.6; Estimated Glomerular Filt Rate > 60; Glucose Random 106 mg/dL (60-115); Lactate Dehydrogenase 476 U/L (122-220); Lipase 61 U/L (8-78); Magnesium 2.4 mg/dL (1.6-2.6); Potassium 3.4 mmol/L (3.3-5.1); Sodium 136 mmol/L (135-145); Total Protein 5.9 g/dL (6.5-8.0)
[2021-04-25 14:28] LABS: INTERNATIONAL NORM RATIO 1.2 (0.9-1.1); Prothrombin Time 13.3 SEC (9.9-13.0)
[2021-04-25 14:29] LABS: B Type Natriuretic Peptide 17 pg/mL (<100); Troponin-I High Sensitivity 3.9 ng/L (<3.5-17.0)
[2021-04-25 14:30] LABS: D Dimer High Sensitivity 437 NG/ML
[2021-04-25 14:31] LABS: Partial Thromboplastin Time 27.2 SEC (24.1-38.0)
[2021-04-25 14:35] LABS: SLIDE REVIEW VERIFIED
[2021-04-25 14:41] LABS: Procalcitonin 0.08 ng/mL
[2021-04-25 14:43] LABS: Ferritin 991 ng/mL (10-250)
[2021-04-25] MEDS: iohexoL 350 MG/ML 100 ML INFUS..BTL IV (14:58)
[2021-04-25 15:08] VITALS: BP 115/76; PULSE 77; RESP 22; TEMP 37.5; O2SAT 90
[2021-04-25 15:29] LABS: COVID-19 Test Positive (Negative)
--- NOTE | 2021-04-25 16:03 | PM.EVENT ---
Event Note Date of Service: 04/25/21 Event Note: the patient was seen and evaluated with ANN Mcguire. I agree with her note, assessment and plan with the following. In summary, A 60 years old lady with PMH of GERD, HLD, HTN and hypothyroid who presents to the hospital with 4 days of SOB and cough. She is unvaccinated against Covid19. tested +ve 4 days ago. Her is currently hospitalized with COVID.? Having symptoms for almost 10 days. worsened over the last 4 days having more shortness of breath with chest discomfort with coughing.? associated with chills. Found to be hypoxic on roomair. Acute hypoxic respiratory failure 2/2 Covid 19 Infx Oxygen, Dexamethasone symptoms for >10 days, not a candidate for remdisivir\Baricitinib PT evaluation when less hypoxic Rest of evaluations by PA note.
--- NOTE | 2021-04-25 16:28 | PM.IMHP ---
History of Present Illness Date of Service: 04/25/21 Attending physician on admission: Cally Sweet Chief Complaint: shortness of breath This is a 60-year-old female who presents to the emergency department with complaints of shortness of breath. She reports 1-2 week history of shortness of breath, cough and muscle aches. She also reports intermittent fevers. Three days ago she tested positive for COVID-19. Her is currently admitted to the hospital secondary to COVID-19. She is unvaccinated against covid 19. in the emergency department she was hypoxic and saturating 90% on 4 L. CTA showed multi lobar infiltrates with no evidence of PE. Inflammatory markers were checked and were elevated, CRP 8.81, LDH 476. She was treated with IV Decadron and a decision was made to admit her to the hospital for further management. Review of Systems Constitutional: Constitutional: Reports fatigue, Reports fever(s) and Reports malaise Cardiovascular: Cardiovascular: Reports dyspnea Respiratory: Respiratory: Reports cough and Reports dyspnea Endocrine: Endocrine: Reports fatigue [facility] Medical History Fatty liver GERD (gastroesophageal reflux disease) Hypercholesterolemia Hypertension Hypothyroid Knee osteoarthritis Mammogram declined Obesity PUD (peptic ulcer disease) Syncope Vitamin B12 deficiency Family History Father No problems noted. Mother No problems noted. Paternal Uncle Lung cancer Esophageal cancer Throat cancer Maternal Uncle Myocardial infarction Paternal Aunt Lung cancer Surgical History History of D&C History of surgery Social History Housing: House Alcohol intake: never Patient Tobacco Use Status: Never used Tobacco Tobacco use type: Cigarette e-Cigarette/Vaping Use: Never Used Second Hand Smoke Exposure: No Use of substances other than those prescribed or required for medical reasons: No Advance Directives: No Advance Directives Information Provided: Yes Patient : No service: No Current occupational status: disabled Meds Allergies Allergy/AdvReac Type Severity Reaction Status Date / Time metoprolol Allergy Unknown epig pain? Verified 03/12/21 12:58 Active Medications: Current Medications Acetaminophen (Acetaminophen 325 Mg Tablet) 650 mg PO Q6H PRN PRN Reason: Pain, Mild (Pain Scale 1-3) Atenolol (Atenolol 25 Mg Tablet) 12.5 mg PO DAILY [facility]; Protocol Cyanocobalamin (Cyanocobalamin (Vitamin B-12) 1,000 Mcg Tablet) 1,000 mcg PO DAILY [facility] Dexamethasone Sodium Phosphate (Dexamethasone Sod Phosphate 4 Mg/Ml Vial) 6 mg IVPUSH DAILY [facility] Docusate Sodium (Docusate Sodium 100 Mg Capsule) 100 mg PO DAILY PRN PRN Reason: Constipation Enoxaparin Sodium (Enoxaparin Sodium 40 Mg/0.4 Ml Syringe) 40 mg SUBCUT Q24H [facility] Levothyroxine Sodium (Levothyroxine Sodium 50 Mcg Tablet) 50 mcg PO DAILY [facility] Ondansetron HCl (Ondansetron Hcl 4 Mg/2 Ml Vial) 4 mg IVPUSH Q8H PRN PRN Reason: Nausea and Vomiting Pharmacy Consult (Consult Rx Perform Med Rec) 1 each MISCELLANE ONCE PRN PRN Reason: Consult order Sodium Chloride (0.9 % Sodium Chloride Flush 3 Ml Syringe) 3 ml IVFLUSH QSHIFT [facility] Vitamin D (Cholecalciferol (Vitamin D3) 25 Mcg Tablet) 25 mcg PO DAILY [facility] Home Medications Medication Instructions Recorded Confirmed Last Taken Type cholecalciferol (vitamin D3) 25 25 mcg PO DAILY 02/02/20 04/25/21 Unknown History mcg (1,000 unit) capsule atenolol 25 mg tablet 12.5 mg PO DAILY 04/25/21 04/25/21 Unknown History Physical Exam Vital Signs and Narrative: Vital Signs: Last Vital Signs Temp 99.5 F 04/25/21 15:08 Pulse 77 04/25/21 15:08 Resp 22 H 04/25/21 15:08 BP 115/76 04/25/21 15:08 Pulse Ox 90 L 04/25/21 15:08 Oxygen Flow Rate 4 04/25/21 12:31 BMI result Body Mass Index 34.9 Const: General: cooperative Nutritional Appearance: well nourished Orientation/consciousness: patient oriented x3 HENMT: Head: Yes normocephalic and Yes atraumatic Eyes: Sclerae: sclerae normal Pupils: Equal, round and reactive pupils present Resp: Other: course breath sounds bilaterally. no wheezes or rales Effort & Inspection: normal respiratory effort and no respiratory distress Cardio: Rate: regular rate Rhythm: regular rhythm GI: Palpation (GI): Soft to palpation and nontender Neuro: General: patient oriented x3 Cranial nerves: Yes CN's II-XII intact bilaterally, Yes Equal, round and reactive pupils present and Yes Bilaterally intact EOM present Extrem: Other: no leg edema Results Labs CBC and Chem 7: 04/25/21 13:54 04/25/21 13:54 Labs: Laboratory Results - last 24 hr 04/25/21 04/25/21 04/25/21 13:54 13:54 13:54 MCV 90.9 MCH 30.9 MCHC 34.0 RDW 13.9 Plt Count 219 MPV 10.5 Immature Gran % (Auto) 0.6 H Neut % (Auto) 81.7 H Lymph % (Auto) 12.7 L [place] % (Auto) 4.9 Eos % (Auto) 0.0 Baso % (Auto) 0.1 Lymph # (Auto) 0.9 L [place] # (Auto) 0.3 Eos # (Auto) 0.0 Baso # (Auto) 0.0 Abs Immat Gran (auto) 0.04 H Absolute Neuts (auto) 5.4 Absolute Nucleated RBC 0.000 Nucleated RBC % (auto) 0.0 Smear Tech's Comments VERIFIED PT INR APTT D-Dimer High Sensitivty 437 VBG pH VBG pCO2 VBG pO2 VBG HCO3 VBG O2 Saturation VBG Base Excess Anion Gap 16 Estim Creat Clear Calc 107.6 Estimated GFR > 60 Random Glucose 106 Lactic Acid Calcium 8.2 L D Magnesium 2.4 Ferritin Total Bilirubin 0.7 Direct Bilirubin 0.4 AST 36 H D ALT 27 Alkaline Phosphatase 57 D Lactate Dehydrogenase 476 H Total Creatine Kinase 113 Troponin I High Sens C-Reactive Protein 8.81 H B-Natriuretic Peptide Total Protein 5.9 L Albumin 3.4 L D Lipase 61 Procalcitonin COVID-19 ([facility]) COVID-19 Clin Com 04/25/21 04/25/21 04/25/21 13:54 13:54 13:54 MCV MCH MCHC RDW Plt Count MPV Immature Gran % (Auto) Neut % (Auto) Lymph % (Auto) [place] % (Auto) Eos % (Auto) Baso % (Auto) Lymph # (Auto) [place] # (Auto) Eos # (Auto) Baso # (Auto) Abs Immat Gran (auto) Absolute Neuts (auto) Absolute Nucleated RBC Nucleated RBC % (auto) Smear Tech's Comments PT 13.3 H INR 1.2 H APTT 27.2 D-Dimer High Sensitivty VBG pH VBG pCO2 VBG pO2 VBG HCO3 VBG O2 Saturation VBG Base Excess Anion Gap Estim Creat Clear Calc Estimated GFR Random Glucose Lactic Acid Calcium Magnesium Ferritin Total Bilirubin Direct Bilirubin AST ALT Alkaline Phosphatase Lactate Dehydrogenase Total Creatine Kinase Troponin I High Sens C-Reactive Protein B-Natriuretic Peptide 17 Total Protein Albumin Lipase Procalcitonin COVID-19 ([facility]) Positive A COVID-19 Clin Com See Note 04/25/21 04/25/21 04/25/21 13:54 13:54 13:54 MCV MCH MCHC RDW Plt Count MPV Immature Gran % (Auto) Neut % (Auto) Lymph % (Auto) [place] % (Auto) Eos % (Auto) Baso % (Auto) Lymph # (Auto) [place] # (Auto) Eos # (Auto) Baso # (Auto) Abs Immat Gran (auto) Absolute Neuts (auto) Absolute Nucleated RBC Nucleated RBC % (auto) Smear Tech's Comments PT INR APTT D-Dimer High Sensitivty VBG pH VBG pCO2 VBG pO2 VBG HCO3 VBG O2 Saturation VBG Base Excess Anion Gap Estim Creat Clear Calc Estimated GFR Random Glucose Lactic Acid 1.1 Calcium Magnesium Ferritin 991 H Total Bilirubin Direct Bilirubin AST ALT Alkaline Phosphatase Lactate Dehydrogenase Total Creatine Kinase Troponin I High Sens 3.9 C-Reactive Protein B-Natriuretic Peptide Total Protein Albumin Lipase Procalcitonin COVID-19 ([facility]) [employer] Clin Com 04/25/21 04/25/21 13:54 13:58 MCV MCH MCHC RDW Plt Count MPV Immature Gran % (Auto) Neut % (Auto) Lymph % (Auto) [place] % (Auto) Eos % (Auto) Baso % (Auto) Lymph # (Auto) [place] # (Auto) Eos # (Auto) Baso # (Auto) Abs Immat Gran (auto) Absolute Neuts (auto) Absolute Nucleated RBC Nucleated RBC % (auto) Smear Tech's Comments PT INR APTT D-Dimer High Sensitivty VBG pH 7.46 H VBG pCO2 29 VBG pO2 62 VBG HCO3 21 L VBG O2 Saturation 88.0 VBG Base Excess -1.1 Anion Gap Estim Creat Clear Calc Estimated GFR Random Glucose Lactic Acid Calcium Magnesium Ferritin Total Bilirubin Direct Bilirubin AST ALT Alkaline Phosphatase Lactate Dehydrogenase Total Creatine Kinase Troponin I High Sens C-Reactive Protein B-Natriuretic Peptide Total Protein Albumin Lipase Procalcitonin 0.08 COVID-19 ([facility]) COVID-19 Clin Com Imaging Radiologist's Impressions: Impressions Chest CTA 04/25/21 15:03 IMPRESSION: No evidence of PE. No evidence of DVT. Multi lobar infiltrates. Cholelithiasis without wall thickening. Hepatic steatosis VTE: negative Assessment and Plan (1) COVID-19: Status: Acute This is a 60-year-old female with history of hypothyroidism, hypertension, recently diagnosed with COVID-19 who presents the hospital with shortness of breath found to be hypoxic acute respiratory failure with hypoxia secondary to COVID-19 pneumonia Symptoms for 1-2 weeks; unvaccinated due to duration of symptoms not candidate for remdecivir/baricitinib -IV decadron for 10 days -supplemental oxygen as needed hypothyroidism Continue Synthroid hypertension continue atenolol DVT prophylaxis -Lovenox Code status -full code attending - Dr. sarkar Quality Stroke Does the patient have a stroke diagnosis?: No VTE Prior VTE?: No VTE Risk Level:: Medical - moderate - high VTE Device Contraindication: N/A - Device Ordered VTE Drug Contraindication: N/A - Med Ordered
[2021-04-25 17:37] VITALS: BP 104/63; PULSE 77; RESP 20; TEMP 36.8; O2SAT 97
[2021-04-25] MEDS: Enoxaparin Sodium 40 MG/0.4 ML SYRINGE SUBCUT (19:11)
[2021-04-25] MEDS: 0.9 % Sodium Chloride Flush 3 ML SYRINGE IVFLUSH (22:52)
[2021-04-25 22:57] VITALS: BP 143/74; PULSE 75; RESP 20; TEMP 36.7; O2SAT 90
[2021-04-25 23:00] VITALS: BMI 32.3
[2021-04-26] MEDS: Levothyroxine Sodium 50 MCG TABLET PO (05:48)
[2021-04-26 08:00] VITALS: BP 123/73; PULSE 75; RESP 18; TEMP 36.4; O2SAT 94
[2021-04-26] MEDS: dexAMETHasone sod phosphate 4 MG/ML VIAL 6 MG IVPUSH (10:15)
[2021-04-26] MEDS: Cyanocobalamin (Vitamin B-12) 1,000 MCG TABLET 1000 MCG PO (10:16)
[2021-04-26] MEDS: Cholecalciferol (Vitamin D3) 25 MCG TABLET PO (10:16)
[2021-04-26] MEDS: 0.9 % Sodium Chloride Flush 3 ML SYRINGE IVFLUSH ×3 (10:16→20:19)
[2021-04-26] MEDS: atenoloL 25 MG TABLET 12.5 MG PO (10:16)
--- NOTE | 2021-04-26 10:17 | P.PNIM_ITS ---
Subjective Subjective Date of Service: 04/26/21 Review of Systems Follow up covid 19 some sob and cough Pain with inspiration Physical Exam Verdana 4l Vital Signs: Verdana 4d Verdana 4d Vital Signs: Verdana 4d Verdana 4Bd Last Vital Signs Verdana 4d Gini Murphy 4d Gini Murphy 4d Temp 97.6 F 04/26/21 08:00 Gini New 4d Pulse 75 04/26/21 08:00 Gini MurphyNew 4d Resp 18 04/26/21 08:00 BP 123/73 04/26/21 08:00 Pulse Ox 94 04/26/21 08:00 Oxygen Flow Rate 4 04/25/21 12:31 BMI result Body Mass Index 32.3 Appearing in no acute distress lung sounds normal expansion heart regular rate rhythm, clear S1, S2 positive bowel sounds, abdomen is soft, nontender neuro patient is alert x3, no focal deficits Objective Data Active Medications Acetaminophen (Acetaminophen 325 Mg Tablet) 650 mg PO Q6H PRN PRN Reason: Pain, Mild (Pain Scale 1-3) Atenolol (Atenolol 25 Mg Tablet) 12.5 mg PO DAILY [facility]; Protocol Last Admin: 04/26/21 10:16 Dose: 12.5 mg Documented by: ISAK Cyanocobalamin (Cyanocobalamin (Vitamin B-12) 1,000 Mcg Tablet) 1,000 mcg PO DAILY [facility] Last Admin: 04/26/21 10:16 Dose: 1,000 mcg Documented by: ISAK Dexamethasone Sodium Phosphate (Dexamethasone Sod Phosphate 4 Mg/Ml Vial) 6 mg IVPUSH DAILY [facility] Last Admin: 04/26/21 10:15 Dose: 6 mg Documented by: ISAK Docusate Sodium (Docusate Sodium 100 Mg Capsule) 100 mg PO DAILY PRN PRN Reason: Constipation Enoxaparin Sodium (Enoxaparin Sodium 40 Mg/0.4 Ml Syringe) 40 mg SUBCUT Q24H [facility] Last Admin: 04/25/21 19:11 Dose: 40 mg Documented by: CHANDRA Levothyroxine Sodium (Levothyroxine Sodium 50 Mcg Tablet) 50 mcg PO DAILY@0600 [facility] Last Admin: 04/26/21 05:48 Dose: 50 mcg Documented by: LAURA Ondansetron HCl (Ondansetron Hcl 4 Mg/2 Ml Vial) 4 mg IVPUSH Q8H PRN PRN Reason: Nausea and Vomiting Pharmacy Consult (Consult Rx Perform Med Rec) 1 each MISCELLANE ONCE PRN PRN Reason: Consult order Sodium Chloride (0.9 % Sodium Chloride Flush 3 Ml Syringe) 3 ml IVFLUSH QSHIFT [facility] Last Admin: 04/26/21 10:16 Dose: 3 ml Documented by: ISAK Vitamin D (Cholecalciferol (Vitamin D3) 25 Mcg Tablet) 25 mcg PO DAILY [facility] Last Admin: 04/26/21 10:16 Dose: 25 mcg Documented by: ISAK Labs CBC & Chem 7: 04/25/21 13:54 04/25/21 13:54 Labs: Laboratory Results - last 24 hr 04/25/21 04/25/21 04/25/21 13:54 13:54 13:54 MCV 90.9 MCH 30.9 MCHC 34.0 RDW 13.9 Plt Count 219 MPV 10.5 Immature Gran % (Auto) 0.6 H Neut % (Auto) 81.7 H Lymph % (Auto) 12.7 L [place] % (Auto) 4.9 Eos % (Auto) 0.0 Baso % (Auto) 0.1 Lymph # (Auto) 0.9 L [place] # (Auto) 0.3 Eos # (Auto) 0.0 Baso # (Auto) 0.0 Abs Immat Gran (auto) 0.04 H Absolute Neuts (auto) 5.4 Absolute Nucleated RBC 0.000 Nucleated RBC % (auto) 0.0 Smear Tech's Comments VERIFIED PT INR APTT D-Dimer High Sensitivty 437 VBG pH VBG pCO2 VBG pO2 VBG HCO3 VBG O2 Saturation VBG Base Excess Anion Gap 16 Estim Creat Clear Calc 107.6 Estimated GFR > 60 Random Glucose 106 Lactic Acid Calcium 8.2 L D Magnesium 2.4 Ferritin Total Bilirubin 0.7 Direct Bilirubin 0.4 AST 36 H D ALT 27 Alkaline Phosphatase 57 D Lactate Dehydrogenase 476 H Total Creatine Kinase 113 Troponin I High Sens C-Reactive Protein 8.81 H B-Natriuretic Peptide Total Protein 5.9 L Albumin 3.4 L D Lipase 61 Procalcitonin COVID-19 ([facility]) COVID-19 Clin Com 04/25/21 04/25/21 04/25/21 13:54 13:54 13:54 MCV MCH MCHC RDW Plt Count MPV Immature Gran % (Auto) Neut % (Auto) Lymph % (Auto) [place] % (Auto) Eos % (Auto) Baso % (Auto) Lymph # (Auto) [place] # (Auto) Eos # (Auto) Baso # (Auto) Abs Immat Gran (auto) Absolute Neuts (auto) Absolute Nucleated RBC Nucleated RBC % (auto) Smear Tech's Comments PT 13.3 H INR 1.2 H APTT 27.2 D-Dimer High Sensitivty VBG pH VBG pCO2 VBG pO2 VBG HCO3 VBG O2 Saturation VBG Base Excess Anion Gap Estim Creat Clear Calc Estimated GFR Random Glucose Lactic Acid Calcium Magnesium Ferritin Total Bilirubin Direct Bilirubin AST ALT Alkaline Phosphatase Lactate Dehydrogenase Total Creatine Kinase Troponin I High Sens C-Reactive Protein B-Natriuretic Peptide 17 Total Protein Albumin Lipase Procalcitonin COVID-19 ([facility]) Positive A COVID-19 [employer] See Note 04/25/21 04/25/21 04/25/21 13:54 13:54 13:54 MCV MCH MCHC RDW Plt Count MPV Immature Gran % (Auto) Neut % (Auto) Lymph % (Auto) [place] % (Auto) Eos % (Auto) Baso % (Auto) Lymph # (Auto) [place] # (Auto) Eos # (Auto) Baso # (Auto) Abs Immat Gran (auto) Absolute Neuts (auto) Absolute Nucleated RBC Nucleated RBC % (auto) Smear Tech's Comments PT INR APTT D-Dimer High Sensitivty VBG pH VBG pCO2 VBG pO2 VBG HCO3 VBG O2 Saturation VBG Base Excess Anion Gap Estim Creat Clear Calc Estimated GFR Random Glucose Lactic Acid 1.1 Calcium Magnesium Ferritin 991 H Total Bilirubin Direct Bilirubin AST ALT Alkaline Phosphatase Lactate Dehydrogenase Total Creatine Kinase Troponin I High Sens 3.9 C-Reactive Protein B-Natriuretic Peptide Total Protein Albumin Lipase Procalcitonin COVID-19 ([facility]YSTEN) [facility]-[employer] 04/25/21 04/25/21 13:54 13:58 MCV MCH MCHC RDW Plt Count MPV Immature Gran % (Auto) Neut % (Auto) Lymph % (Auto) [place] % (Auto) Eos % (Auto) Baso % (Auto) Lymph # (Auto) [place] # (Auto) Eos # (Auto) Baso # (Auto) Abs Immat Gran (auto) Absolute Neuts (auto) Absolute Nucleated RBC Nucleated RBC % (auto) Smear Tech's Comments PT INR APTT D-Dimer High Sensitivty VBG pH 7.46 H VBG pCO2 29 VBG pO2 62 VBG HCO3 21 L VBG O2 Saturation 88.0 VBG Base Excess -1.1 Anion Gap Estim Creat Clear Calc Estimated GFR Random Glucose Lactic Acid Calcium Magnesium Ferritin Total Bilirubin Direct Bilirubin AST ALT Alkaline Phosphatase Lactate Dehydrogenase Total Creatine Kinase Troponin I High Sens C-Reactive Protein B-Natriuretic Peptide Total Protein Albumin Lipase Procalcitonin 0.08 COVID-19 ([facility]) COVID-19 Clin Com Assessment and Plan (1) COVID-19: Status: Acute Assessment and Plan: This is a 60-year-old female with history of hypothyroidism, hypertension, recently diagnosed with COVID-19 who presents the hospital with shortness of breath found to be hypoxic Acute respiratory failure with hypoxia secondary to COVID-19 pneumonia Symptoms for 1-2 weeks;? unvaccinated due to duration of symptoms not candidate for remdecivir/baricitinib -IV decadron for 10 days -supplemental oxygen as needed Pleuritic chest pain CTA neg secondary to covid pna and cough hypothyroidism Continue Synthroid hypertension continue atenolol DVT prophylaxis -Lovenox Code status -full code attending - Dr. Cardenas Quality Stroke Does the patient have a stroke diagnosis?: No VTE Prior VTE?: No VTE Risk Level:: Medical - moderate - high VTE Device Contraindication: N/A - Device Ordered VTE Drug Contraindication: N/A - Med Ordered
--- NOTE | 2021-04-26 12:04 | MHC.CM.PN ---
CM CALLED PT AT THE NUMBER LISTED [phone]. PT REPORTS SHE LIVES AT HOME WITH HER AND IS INDEPENDENT AT BASELINE PT REPORTS SHE DOES NOT HAVE SERVICES AND USES NO DME PT CONFIRMS HER PCP IS VIVIAN ISABEL PT DECLINES TO COMPLETE A HCP TODAY PT REPORTS CONCERN ABOUT GOING HOME BECAUSE SHE DOES NOT KNOW HOW TO COOK AND SHE AND HER GO OUT FOR EVERY MEAL CM ENCOURAGED HER TO CONSIDER [employer] OR A MEAL DELIVERY [facility]AKI HOWEVER SHE REPORTED SHE WOULD NOT KNOW HOW TO DO SO. CM INFORMED HER THIS COULD BE FURTHER DISCUSSED AT TIME OF DC IF STILL NECESSARY CURRENT DC PLAN IS HOME WITH NO SERVICES PT TO ARRANGE TRANSPORT
[2021-04-26 15:14] VITALS: BP 112/73; PULSE 66; RESP 18; TEMP 36.5; O2SAT 93
[2021-04-26] MEDS: Enoxaparin Sodium 40 MG/0.4 ML SYRINGE SUBCUT (17:14)
[2021-04-26 23:49] VITALS: BP 148/90; PULSE 72; RESP 20; TEMP 36.2; O2SAT 94
[2021-04-27] MEDS: Levothyroxine Sodium 50 MCG TABLET PO (05:40)
[2021-04-27 08:00] VITALS: BP 114/64; PULSE 65; RESP 12; TEMP 36.3; O2SAT 90
[2021-04-27] MEDS: 0.9 % Sodium Chloride Flush 3 ML SYRINGE IVFLUSH ×3 (10:46→20:32)
[2021-04-27] MEDS: atenoloL 25 MG TABLET 12.5 MG PO (10:46)
--- NOTE | 2021-04-27 10:46 | P.PNIM_ITS ---
Subjective Subjective Date of Service: 04/27/21 Review of Systems Follow up covid 19 SOB with ambulation Pain with inspiration improved Constitutional Constitutional: Reports no additional constitutional complaints, Denies body ache(s), Denies chills, Reports fatigue, Reports fever(s), Denies headache(s), Reports malaise and Reports weakness Eyes Eyes: Reports no additional eye complaints and Denies change in vision ENT Ears, Nose, Mouth, and Throat: Reports system reviewed and no additional complaints, except as documented, Denies dizziness, Denies headache(s), Denies nasal congestion, Denies nasal discharge and Denies neck pain Cardiovascular Cardiovascular: Reports no additional cardiovascular complaints, Denies chest pain, Denies leg edema, Reports dyspnea and Reports dyspnea on exertion Respiratory Respiratory: Reports no additional respiratory complaints, Reports cough, Reports dyspnea and Reports dyspnea on exertion Gastrointestinal Gastrointestinal: Reports no additional gastrointestinal complaints, Denies abdominal pain, Reports diarrhea, Denies nausea and Denies vomiting Musculoskeletal Musculoskeletal: Reports no additional musculoskeletal complaints, Denies back pain, Denies arthralgias, Denies joint swelling, Denies neck pain, Denies numbness and Denies tingling Integumentary/Breasts Skin/Breast: Reports no additional skin complaints and Denies rash Neurologic Neurologic: Reports system reviewed and no additional complaints, except as documented, Denies Abnormal speech present, Denies dizziness, Denies headache(s), Denies numbness, Denies tingling and Reports weakness Endocrine Endocrine: Reports fatigue Physical Exam Verdana 4l Vital Signs: Verdana 4d Verdana 4d Vital Signs: Verdana 4d Verdana 4Bd Last Vital Signs Verdana 4d Plumbing Installer New 4d Plumbing Installer New 4d Temp 97.3 F 04/27/21 08:00 Plumbing Installer New 4d Pulse 65 04/27/21 08:00 Plumbing Installer NewNew 4d Resp 12 04/27/21 08:00 BP 114/64 04/27/21 08:00 Pulse Ox 90 L 04/27/21 08:00 Oxygen Flow Rate 4 04/25/21 12:31 BMI result Body Mass Index 32.3 Neuro: Speech: No Abnormal speech present Objective Data Active Medications Acetaminophen (Acetaminophen 325 Mg Tablet) 650 mg PO Q6H PRN PRN Reason: Pain, Mild (Pain Scale 1-3) Atenolol (Atenolol 25 Mg Tablet) 12.5 mg PO DAILY [facility]; Protocol Last Admin: 04/26/21 10:16 Dose: 12.5 mg Documented by: ISAK Cyanocobalamin (Cyanocobalamin (Vitamin B-12) 1,000 Mcg Tablet) 1,000 mcg PO DAILY [facility] Last Admin: 04/26/21 10:16 Dose: 1,000 mcg Documented by: ISAK Dexamethasone Sodium Phosphate (Dexamethasone Sod Phosphate 4 Mg/Ml Vial) 6 mg IVPUSH DAILY [facility] Last Admin: 04/26/21 10:15 Dose: 6 mg Documented by: ISAK Docusate Sodium (Docusate Sodium 100 Mg Capsule) 100 mg PO DAILY PRN PRN Reason: Constipation Enoxaparin Sodium (Enoxaparin Sodium 40 Mg/0.4 Ml Syringe) 40 mg SUBCUT Q24H [facility] Last Admin: 04/26/21 17:14 Dose: 40 mg Documented by: ISAK Levothyroxine Sodium (Levothyroxine Sodium 50 Mcg Tablet) 50 mcg PO DAILY@0600 [facility] Last Admin: 04/27/21 05:40 Dose: 50 mcg Documented by: LAURA Ondansetron HCl (Ondansetron Hcl 4 Mg/2 Ml Vial) 4 mg IVPUSH Q8H PRN PRN Reason: Nausea and Vomiting Pharmacy Consult (Consult Rx Perform Med Rec) 1 each MISCELLANE ONCE PRN PRN Reason: Consult order Sodium Chloride (0.9 % Sodium Chloride Flush 3 Ml Syringe) 3 ml IVFLUSH QSHIFT [facility] Last Admin: 04/26/21 20:19 Dose: 3 ml Documented by: LAURA Vitamin D (Cholecalciferol (Vitamin D3) 25 Mcg Tablet) 25 mcg PO DAILY [facility] Last Admin: 04/26/21 10:16 Dose: 25 mcg Documented by: ISAK Labs CBC & Chem 7: 04/25/21 13:54 04/25/21 13:54 Microbiology Microbiology Results: Microbiology 04/25/21 13:57 Blood Culture - Preliminary Blood - Venous No growth after 24 hours. 04/25/21 13:57 Blood Culture - Preliminary Blood - Venous No growth after 24 hours. Assessment and Plan (1) COVID-19: Status: Acute Assessment and Plan: This is a 60-year-old female with history of hypothyroidism, hypertension, recently diagnosed with COVID-19 who presents the hospital with shortness of breath found to be hypoxic Acute respiratory failure with hypoxia secondary to COVID-19 pneumonia Symptoms for 1-2 weeks;? unvaccinated due to duration of symptoms not candidate for remdecivir/baricitinib IV decadron for 10 days supplemental oxygen as needed Plan for home o2 eval as she is only requiring 3 liters at this time at rest PT eval Pleuritic chest pain CTA neg secondary to covid pna and cough hypothyroidism Continue Synthroid hypertension continue atenolol DVT prophylaxis -Lovenox Code status -full code attending - Dr. Cardenas Quality Stroke Does the patient have a stroke diagnosis?: No VTE Prior VTE?: No VTE Risk Level:: Medical - moderate - high VTE Device Contraindication: N/A - Device Ordered VTE Drug Contraindication: N/A - Med Ordered
[2021-04-27] MEDS: dexAMETHasone sod phosphate 4 MG/ML VIAL 6 MG IVPUSH (10:47)
[2021-04-27] MEDS: Cholecalciferol (Vitamin D3) 25 MCG TABLET PO (10:47)
[2021-04-27] MEDS: Cyanocobalamin (Vitamin B-12) 1,000 MCG TABLET 1000 MCG PO (10:47)
[2021-04-27 12:48] VITALS: BP 116/70; PULSE 78; RESP 20; TEMP 36.1; O2SAT 92
[2021-04-27 16:00] VITALS: BP 111/77; PULSE 59; RESP 18; TEMP 36.2; O2SAT 96
[2021-04-27] MEDS: Enoxaparin Sodium 40 MG/0.4 ML SYRINGE SUBCUT (16:52)
[2021-04-28] VITALS: BP 118/80; PULSE 76; RESP 18; TEMP 37; O2SAT 94
[2021-04-28] MEDS: Levothyroxine Sodium 50 MCG TABLET PO (06:09)
[2021-04-28 06:45] LABS: Mean Corpuscular Hemoglobin 30.7 pg (27.0-33.0)
[2021-04-28 07:01] LABS: Mean Corpuscular HGB Conc 33.3 g/dl (31.0-35.0); Mean Platelet Volume 10.6 fL (9.4-12.3); Platelet Count 354 X10*3/uL (160-400); Red Blood Count 4.24 X10*6/uL (4.20-5.50); Red Cell Distribution Width 13.7 % (11.0-16.0); White Blood Count 7.4 X10*3/uL (4.8-10.8)
[2021-04-28 08:00] VITALS: BP 113/70; PULSE 83; RESP 18; TEMP 36.4; O2SAT 93
[2021-04-28 08:39] LABS: Anion Gap 15 (12-20); Blood Urea Nitrogen 19 mg/dL (9-16); Calcium 8.9 mg/dL (8.4-10.2); Carbon Dioxide 25 mmol/L (22-29); Chloride 103 mmol/L (96-108); Creatinine Clr Calc Pharmacy 98.8; Estimated Glomerular Filt Rate > 60; Glucose Random 138 mg/dL (60-115); Potassium 4.1 mmol/L (3.3-5.1); Sodium 139 mmol/L (135-145)
[2021-04-28 09:42] VITALS: PULSE 114; PULSE 89; PULSE 99; O2SAT 88; O2SAT 90
[2021-04-28 10:18] VITALS: O2SAT 92
[2021-04-28] MEDS: Cyanocobalamin (Vitamin B-12) 1,000 MCG TABLET 1000 MCG PO (10:30)
[2021-04-28] MEDS: 0.9 % Sodium Chloride Flush 3 ML SYRINGE IVFLUSH ×3 (10:30→19:32)
[2021-04-28] MEDS: Cholecalciferol (Vitamin D3) 25 MCG TABLET PO (10:30)
[2021-04-28] MEDS: dexAMETHasone sod phosphate 4 MG/ML VIAL 6 MG IVPUSH (10:30)
[2021-04-28] MEDS: atenoloL 25 MG TABLET 12.5 MG PO (10:31)
[2021-04-28 10:33] VITALS: BP 143/66; PULSE 75
--- NOTE | 2021-04-28 13:44 | PM.DS ---
DS: Providers Provider Date of Service: 04/28/21 Date of admission: 04/25/21 16:32 Primary care physician: Tamar Bermudez MD Attending physician on discharge: Eliel Palma Discharging clinician: Kathryn Allen DS: Diagnosis Discharge Diagnosis (1) COVID-19: Status: Acute DS: Summary Hospital Course Hospital Course: Hp as per admitting provider This is a 60-year-old female who presents to the emergency department with complaints of shortness of breath.? She reports 1-2 week history of shortness of breath, cough and muscle aches. ? She also reports intermittent fevers. Three days ago she tested positive for COVID-19.? Her is currently admitted to the hospital secondary to COVID-19. She is unvaccinated against covid 19.? in the emergency department she was hypoxic and saturating 90% on 4 L. CTA showed multi lobar infiltrates with no evidence of PE. ? Inflammatory markers? were checked and were elevated, CRP 8.81, LDH 476.? She was treated with IV Decadron and a decision was made to admit her to the hospital for further management . Acute respiratory failure with hypoxia secondary to COVID-19 pneumonia Symptoms for 1-2 weeks;? unvaccinated due to duration of symptoms not candidate for remdecivir/baricitinib Treated initially with IV decadron supplemental oxygen as needed 3 liters of oxygen at home. Pleuritic chest pain CTA neg for pulmonary embolism secondary to covid pna and cough Time Spent with Patient Time attestation: Total time spent providing and/or coordinating discharge services: Discharge coordination time: Greater than 30 minutes Quality: Stroke Does the patient have a stroke diagnosis?: No Physical Exam Vital Signs: Vital Signs: Last Vital Signs Temp 97.5 F 04/28/21 08:00 Pulse 75 04/28/21 10:33 Resp 18 04/28/21 08:00 BP 143/66 H 04/28/21 10:33 Pulse Ox 92 04/28/21 10:18 Oxygen Flow Rate 4 04/25/21 12:31 BMI result Body Mass Index 32.3 Appearing in no acute distress head is normocephalic atraumatic eyes pupils are PERRLA sclera is anicteric mouth throat mucous membranes are intact and moist neck is supple no lymphadenopathy, no JVD noted lung sounds are clear to auscultation heart regular rate rhythm, clear S1, S2 positive bowel sounds, abdomen is soft, nontender neuro patient is alert x3, no focal deficits DS: Data Data Completed and Pending Labs on day of discharge: Laboratory Results - last 24 hr 04/28/21 04/28/21 06:23 06:23 WBC 7.4 RBC 4.24 Hgb 13.0 Hct 39.0 MCV 92.0 MCH 30.7 MCHC 33.3 RDW 13.7 Plt Count 354 D MPV 10.6 Absolute Nucleated RBC 0.000 Nucleated RBC % (auto) 0.0 Sodium 139 Potassium 4.1 D Chloride 103 Carbon Dioxide 25 Anion Gap 15 BUN 19 H D Creatinine 0.68 Estim Creat Clear Calc 98.8 Estimated GFR > 60 Random Glucose 138 H Calcium 8.9 D Preliminary micro results at discharge 04/25/21 13:57 Blood Culture - Preliminary Blood - Venous No growth after 48 hours. 04/25/21 13:57 Blood Culture - Preliminary Blood - Venous No growth after 48 hours. Discharge Plan Discharge Anticipated Discharge Date/Time: 04/28/21 13:26 Patient Disposition: Home Health Service Discharge Diagnosis: Acute respiratory failure with secondary to COVID-19 Pleuritic chest pain Referrals: Po,Tamar Morrow MD [Primary Care Provider] - 1 Week Discharge Medications: New dexamethasone [Decadron] 6 mg tablet 6 mg PO DAILY Qty: 7 RF: 0 Continued atenolol 25 mg tablet 12.5 mg PO DAILY RF: 0 cholecalciferol (vitamin D3) 25 mcg (1,000 unit) capsule 25 mcg PO DAILY RF: 0 cyanocobalamin (vitamin B-12) 1,000 mcg capsule 1,000 mcg PO DAILY Qty: 30 RF: 9 levothyroxine 50 mcg tablet 50 mcg PO DAILY Qty: 90 RF: 3 Discharge Orders: Discharge Order (Routine); Ordered 04/28/21 Ordered By: Kathryn Allen Diet: advance to usual diet Activity on Discharge: As tolerated Stand Alone Forms: Patient Portal Discharge page Care Plan Goals: Complete resolution of symptoms Continue taking Decadron for 7 more days Follow-up with primary care provider as needed Health Concerns: Acute respiratory failure with secondary to COVID-19 Pleuritic chest pain Plan of Treatment: Quarantine: According to the Centers for disease control. Persons with COVID-19 who have symptoms and were directed to care for themselves at home may discontinue isolation under the following conditions: -At least 5 days have passed since symptom onset and -At least 24 hours have passed since resolution of fever without the use of fever-reducing medications and -Other symptoms have improved. Safety: Wear a mask Wash your hands or use hand transmitter engineer in charge before putting on your mask. Wear your mask over your nose and mouth and secure it under your chin. Stay 6 feet away from others Inside your home: Avoid close contact with people who are sick. If possible, maintain 6 feet between the person who is sick and other household members. Outside your home: Put 6 feet of distance between yourself and people who don't live in your household. Remember that some people without symptoms may be able to spread virus. Stay at least 6 feet (about 2 arm lengths) from other people. Keeping distance from others is especially important for people who are at higher risk of getting very sick. Avoid crowds and poorly ventilated spaces Avoid indoor spaces that do not offer fresh air from the outdoors as much as possible. Wash your hands often with soap and water for at least 20 seconds especially after you have been in a public place, or after blowing your nose, coughing, or sneezing. Cover coughs and sneezes Clean high touch surfaces daily. Be alert for symptoms. Watch for fever, cough, shortness of breath, or other symptoms of COVID-19. Follow CDC guidance if symptoms develop. Assessment: see discharge summary
--- NOTE | 2021-04-28 14:01 | MHC.CM.PN ---
pt dcd home today cannot be seen by rena bettencourt till rob marti said that was ok
--- NOTE | 2021-04-28 15:58 | P.F2F_ITS ---
Service Date Service Date: 04/28/21 Encounter Date of encounter: 04/28/21 Reasons for Services Signs and symptoms assessed: Covid 19 Reason for senior living: CV/CP assess and/or care Reason for physical therapy: home safety and mobility Homebound: Leaving the home is medically contraindicated at this time without t he asist of a device and/or another person due th the listed conditions above and below. Reason homebound: unsteady gait / fall risk Certification: Based on the above findings, I certify that this patient is confined to the home and needs intermittent senior living care, physical therapy and/or speech therapy, or continues to need occupational therapy. The patient is under my care, and I have initiated the establishment of the plan of care. The patient will be followed by a physician who will periodically review the plan of care.
[2021-04-28] MEDS: Enoxaparin Sodium 40 MG/0.4 ML SYRINGE SUBCUT (18:32)
[2021-04-28 19:23] VITALS: BP 124/79; PULSE 64; TEMP 36.3; O2SAT 94
[2021-04-29] VITALS: BP 139/83; PULSE 52; RESP 187; TEMP 36.4; O2SAT 95
[2021-04-29 03:59] VITALS: BP 123/90; PULSE 50; RESP 20; TEMP 37.1; O2SAT 96
[2021-04-29] MEDS: Levothyroxine Sodium 50 MCG TABLET PO (05:56)
[2021-04-29 07:53] VITALS: BP 115/69; PULSE 49; RESP 16; TEMP 36.6; O2SAT 100
[2021-04-29] MEDS: Cholecalciferol (Vitamin D3) 25 MCG TABLET PO (08:38)
[2021-04-29] MEDS: Cyanocobalamin (Vitamin B-12) 1,000 MCG TABLET 1000 MCG PO (08:38)
[2021-04-29] MEDS: dexAMETHasone sod phosphate 4 MG/ML VIAL 6 MG IVPUSH (08:38)
[2021-04-29] MEDS: 0.9 % Sodium Chloride Flush 3 ML SYRINGE IVFLUSH (08:38)
--- NOTE | 2021-04-29 09:24 | MHC.CM.PN ---
pt dcd changed to today..overlook notified
== END 2021-04-29 11:14 | disposition home health service (06) | DRG 137 ==
LOC: HO.ED 15:52 → HO.EDOVER 16:33 → HO.IMC 21:28
PROVIDERS: Admitting Provider Physician Assistant Medical; Emergency Provider Emergency Medicine; PCP Internal Medicine; Visit Provider Nurse Practitioner Acute Care
DX: U07.1 COVID-19 (principal); J96.01 Acute respiratory failure with hypoxia; J12.82 Pneumonia due to coronavirus disease 2019; E78.5 Hyperlipidemia, unspecified; I10 Essential (primary) hypertension; E03.9 Hypothyroidism, unspecified; K21.9 Gastro-esophageal reflux disease without esophagitis; Z79.890 Hormone replacement therapy; Z79.899 Other long term (current) drug therapy
CPT/HCPCS: 36415; 71275; 80048; 80076; 82550; 82728; 82803; 83605; 83615; 83690; 83735; 83880; 84145; 84484; 85025; 85027; 85379; 85610; 85730; 86140; 87040; 87635; 93005; 96374; 97161; 99285; J1100; J1650; Q9967

== ENCOUNTER 2021-08-18 10:18 | Outpatient (REF) | payer BC, SELFPAY ==
--- NOTE | ~2021-08-18 | XR_ITS ---
EXAMINATION: XR CHEST CLINICAL INFORMATION: Covid 19 COMPARISON: Previous chest x-ray November 2016 and chest CTA April 2021 TECHNIQUE: 2 views of the chest were obtained. FINDINGS: The cardiac and mediastinal contours are normal. The lungs are clear. The previously identified bilateral infiltrates April 2021 are no longer seen. There is no pleural effusion or pneumothorax. There are degenerative changes of the spine. XR/XR chest 2V IMPRESSION: No evidence for acute disease in the chest. Resolved bilateral pulmonary infiltrates from April 2021 chest CTA.
[2021-08-18 11:57] LABS: Hematocrit 43.4 % (37.0-47.0); Hemoglobin 14.1 g/dl (12.0-16.0); Mean Corpuscular HGB Conc 32.5 g/dl (31.0-35.0); Mean Corpuscular Hemoglobin 30.6 pg (27.0-33.0); Mean Corpuscular Volume 94.1 fL (80.0-98.0); Mean Platelet Volume 10.8 fL (9.4-12.3); Platelet Count 252 X10*3/uL (160-400); Red Blood Count 4.61 X10*6/uL (4.20-5.50); Red Cell Distribution Width 13.1 % (11.0-16.0)
[2021-08-18 12:06] LABS: Alanine Aminotransferase 19 U/L (0-31); Albumin Level 4.4 g/dL (3.5-5.0); Alkaline Phosphatase 71 U/L (39-117); Anion Gap 13 (12-20); Aspartate Amino Transferase 18 U/L (5-31); Bilirubin Total 0.9 mg/dL (0.0-1.0); Blood Urea Nitrogen 12 mg/dL (9-16); Calcium 9.8 mg/dL (8.4-10.2); Carbon Dioxide 26 mmol/L (22-29); Chloride 104 mmol/L (96-108); Cholesterol 212 mg/dL; Estimated Glomerular Filt Rate > 60; Glucose Fasting 94 mg/dL (60-99); HDL Cholesterol 52 mg/dL; LDL Cholesterol Calculated 124 mg/dl; Potassium 4.3 mmol/L (3.3-5.1); Sodium 139 mmol/L (135-145); Total Protein 6.9 g/dL (6.5-8.0); Triglycerides 180 mg/dL
[2021-08-18 12:09] LABS: Estimated Average Glucose 114 mg/dL; Hemoglobin A1c % 5.6 %
[2021-08-18 12:10] LABS: TSH reflex Free T4 3.15 uIU/mL (0.32-4.0)
== END 2021-08-18 10:19 | disposition home or self-care (01) ==
LOC: HO.HMGCX 10:18
PROVIDERS: PCP Internal Medicine; Visit Provider Physician Assistant
DX: E03.9 Hypothyroidism, unspecified (principal); I10 Essential (primary) hypertension; E78.00 Pure hypercholesterolemia, unspecified; J12.82 Pneumonia due to coronavirus disease 2019; U07.1 COVID-19
CPT/HCPCS: 36415; 71046; 80053; 80061; 83036; 84443; 85027

== ENCOUNTER 2021-10-24 16:19 | Outpatient (REF) | payer BC, SELFPAY ==
--- NOTE | ~2021-10-24 | US_ITS ---
EXAMINATION: US ABDOMEN LIMITED CLINICAL INFORMATION: Right upper quadrant pain. COMPARISON: Ultrasound abdomen and CT abdomen and pelvis 11/27/2016. TECHNIQUE: Real-time imaging of the right upper quadrant abdominal viscera. FINDINGS: PANCREAS: Normal. LIVER: The liver is normal in size. The liver contour is normal. There is a diffuse echogenic liver with focal fatty sparing at the jacinto hepatis. No focal hepatic lesion. There is no intrahepatic biliary duct dilatation seen. GALLBLADDER: The gallbladder is physiologically distended. Multiple echogenic mobile gallstones are present. No evidence of gallbladder wall thickening or pericholecystic fluid. COMMON BILE DUCT: Normal in caliber measuring 0.4 cm in diameter. RIGHT KIDNEY: Normal. No hydronephrosis. No renal calculi or focal parenchymal lesions. The kidney measures 11.5 cm in maximum dimension. FREE FLUID: None. US/US abdomen limited IMPRESSION: Cholelithiasis without wall thickening or tenderness in the right upper quadrant. Mild hepatic steatosis with area of focal fatty sparing. The right kidney, CBD and the pancreas are unremarkable.
== END 2021-10-24 16:20 | disposition home or self-care (01) ==
LOC: HO.US 16:19
PROVIDERS: Visit Provider Surgery
DX: R10.11 Right upper quadrant pain (principal)
CPT/HCPCS: 76705

== ENCOUNTER 2021-11-27 08:54 | Day surgery (SDC) | payer BC, SELFPAY ==
[2021-11-20 15:18] VITALS: BMI 34.3
--- NOTE | 2021-11-26 11:46 | HO.ANESPROP2 ---
Documented by User: Twila Teixeira NP 11/26/21 11:48 HPI - Anesthesia Eval Consult details Narrative: 60yo F for Cholecystectomy Laparoscopic, possible open,poss cholangiogram PMFSH Active Problems Active Problems: All Active Problems (Updated 11/04/21 @ 13:35 by Narayan Portillo MD) Mammogram declined (Acute) Vitamin B12 deficiency (Acute) Shoulder pain, bilateral (Acute) Knee pain, right (Acute) Impacted cerumen of left ear (Acute) Low back pain (Acute) Gastroenteritis (Acute) Annual physical exam (Acute) Nausea (Acute) COVID-19 (Acute) Viral pneumonia (Acute) Pneumonia due to COVID-19 virus (Acute) Cholelithiasis (Acute) Facial lesion (Acute) PUD (peptic ulcer disease) (Acute) Fatty liver (Acute) GERD (gastroesophageal reflux disease) (Acute) Hypercholesterolemia (Acute) Knee osteoarthritis (Acute) Hypothyroid (Acute) Hypertension (Acute) Obesity (Acute) Past Medical History Medical History Fatty liver GERD (gastroesophageal reflux disease) Hypercholesterolemia Hypertension Hypothyroid Knee osteoarthritis Mammogram declined Obesity PUD (peptic ulcer disease) Syncope Vitamin B12 deficiency Family History Family History Father No problems noted. Mother No problems noted. Paternal Uncle Lung cancer Esophageal cancer Throat cancer Maternal Uncle Myocardial infarction Paternal Aunt Lung cancer Surgical History Surgical History (Updated 11/20/21 @ 15:23 by Patricia Aldana RN) History of D&C History of surgery Hx of colonoscopy Hx of toe surgery Social History Social History Household Members: Spouse Housing: House Are you a primary nursing care partner to a significant other at home: No Do you presently have visiting nurse or other home services: No Alcohol intake: never Patient Tobacco Use Status: Never used Tobacco Tobacco use type: Cigarette e-Cigarette/Vaping Use: Never Used Second Hand Smoke Exposure: No Use of substances other than those prescribed or required for medical reasons: No Have you been hit, kicked, punched, or otherwise hurt by someone within the past year? If so, by whom?: No Are you DNR?: No Advance Directives: No Advance Directives Information Provided: Yes Advance Directives on File: No Recently lost weight without trying: No Eating poorly because of decreased appetite: No Nutrition Risks: No Nutritional Risk Patient : No service: No Current occupational status: disabled Cognitive needs: No Hearing needs: No Vision needs: Yes Meds Allergies Allergy/AdvReac Type Severity Reaction Status Date / Time metoprolol Allergy Unknown epig pain? Verified 11/20/21 15:04 Home Medications Medication Instructions Recorded Confirmed Last Taken Type cholecalciferol (vitamin D3) 25 25 mcg PO DAILY 02/02/20 11/20/21 Unknown History mcg (1,000 unit) capsule milk thistle 150 mg capsule 300 mg PO DAILY 11/20/21 11/20/21 Unknown History Exam Exam Date and Time: November 26, 2021 1146 Height,Weight and Vital Signs: Height 5 ft 4 in Weight 90.718 kg Pertinent Lab Results Pertinent Lab Results: Laboratory Tests 08/18/21 08/18/21 10:33 10:33 WBC 8.0 Hgb 14.1 Hct 43.4 Plt Count 252 D Sodium 139 Potassium 4.3 Chloride 104 Carbon Dioxide 26 BUN 12 Creatinine 0.70 Narrative Narrative: EKG 04/2021 Vent. Rate : 074 BPM ? ? Atrial Rate : 074 BPM ?? P-R Int : 174 ms? QRS Dur : 088 ms ? ? QT Int : 388 ms ? ? ? P-R-T Axes : 007 -09 012 degrees ?? QTc Int : 430 ms ? Sinus rhythm with Premature atrial complexes Low voltage QRS Inferior infarct (cited on or before 27-NOV-2016) Abnormal ECG When compared with ECG of 27-NOV-2016 02:50, Premature atrial complexes are now Present Nonspecific T wave abnormality, improved in Anterior leads Assessment and Plan Assessment Anesthesia Assessment: Chart Reviewed Documented by User: Cinthya Segura MD 11/27/21 11:01 [facility] Past Medical History Medical History Fatty liver GERD (gastroesophageal reflux disease) Hypercholesterolemia Hypertension Hypothyroid Knee osteoarthritis Mammogram declined Obesity PUD (peptic ulcer disease) Syncope Vitamin B12 deficiency Family History Family History Father No problems noted. Mother No problems noted. Paternal Uncle Lung cancer Esophageal cancer Throat cancer Maternal Uncle Myocardial infarction Paternal Aunt Lung cancer Family history of problems with anesthesia: No Surgical History Surgical History (Updated 11/20/21 @ 15:23 by Patricia Aldana RN) History of D&C History of surgery Hx of colonoscopy Hx of toe surgery History of Problems with Anesthesia: No Social History Social History Household Members: Spouse Housing: House Are you a primary nursing care partner to a significant other at home: No Do you presently have visiting nurse or other home services: No Alcohol intake: never Patient Tobacco Use Status: Never used Tobacco Tobacco use type: Cigarette e-Cigarette/Vaping Use: Never Used Second Hand Smoke Exposure: No Use of substances other than those prescribed or required for medical reasons: No Have you been hit, kicked, punched, or otherwise hurt by someone within the past year? If so, by whom?: No Are you DNR?: No Advance Directives: No Advance Directives Information Provided: Yes Advance Directives on File: No Recently lost weight without trying: No Eating poorly because of decreased appetite: No Nutrition Risks: No Nutritional Risk Patient : No service: No Current occupational status: disabled Cognitive needs: No Hearing needs: No Vision needs: Yes Meds Allergies Allergy/AdvReac Type Severity Reaction Status Date / Time metoprolol Allergy Unknown epig pain? Verified 11/20/21 15:04 Home Medications Medication Instructions Recorded Confirmed Last Taken Type cholecalciferol (vitamin D3) 25 25 mcg PO DAILY 02/02/20 11/20/21 Unknown History mcg (1,000 unit) capsule milk thistle 150 mg capsule 300 mg PO DAILY 11/20/21 11/20/21 Unknown History Exam Airway Mallampati Class: III TM Dist: >3cm Neck ROM: Full Assessment and Plan Assessment Anesthesia Assessment: Anesthesia Plan Discussed Final Anesthetic Review Family History of Problems with Anesthesia: No History of Problems with Anesthesia: No NPO: Yes ASA Class: II Final Preanesthetic Review: No Changes in Pt Med Stat, Meds/Allgs Chart Reviewed, Consent Obtained/Reviewed and Anes Risks/Benef Reviewed Patient Risk: Intermediate Procedure Risk: Intermediate Anesthetic Plan Anesthetic Plan: GA Disposition: Standard PACU
[2021-11-27] VITALS (13 sets, daily range): BP systolic 115–145; BP diastolic 71–91; PULSE 60–73; RESP 16; TEMP 36.2–36.9; O2SAT 92–100; BMI 34.0
--- NOTE | 2021-11-27 09:48 | PC.NURSE ---
0914 pt adds that in 2013 on a cruise he had an episode of light headedness and near syncope lasting 1 minute, then resolved for which he did not report and received no treatment. Dr. cole notified and over to see pt. pt has been very active with no issues since. question of postponement of surgery.
[2021-11-27] MEDS: Lactated Ringers 1,000 ML 100 ML IVCONT (10:19)
[2021-11-27] MEDS: Heparin Sodium,Porcine 5,000 UNIT/ML VIAL 5000 UNIT SUBCUT (10:20)
[2021-11-27] MEDS: Acetaminophen 325 MG TABLET 650 MG PO (10:20)
--- NOTE | 2021-11-27 11:40 | MHC.SHP ---
Pre-Procedural Eval Section A Date of Service: 11/27/21 The patient is an INPATIENT: No The History & Physical has been completed within 30 days and I have reviewed it.: Yes Section B Chief Complaint: calculus of gallbladder Allergies: Allergies Allergy/AdvReac Type Severity Reaction Status Date / Time metoprolol Allergy Severe Anaphylaxis Verified 11/27/21 11:01 Plan I have reviewed the history and physical and performed a pertinent physical examination on my patient. No changes have occurred unless specified.
--- NOTE | 2021-11-27 11:41 | P.OP_ITS ---
Operative Note Operative Note Date of Service: 11/27/21 Narrative: Preop diagnosis: [Abd pain, possible CCC] Postop diagnosis: [same] Procedure: [lap naima] Surgeon: Narayan Portillo MD Assist: [Lexa Loaiza PA-C] Anesthesia: [GET; local: Ropivicaine 0.5%] Estimated blood loss: [3cc] Specimen: [GB with contents] Intraoperative findings: [Some adhesions to from the omentum to the gallbladder were noted. Cystic duct was 4-5mm & cystic artery was 3-4mm. Critical view of safety demonstrated] Indications: [The patient is a 60-year-old woman with abdominal pain, RINCON and gallstones. Some of her symptoms fit with biliary colic and we discussed the option of additional testing versus cholecystectomy. The patient wanted to proceed with cholecystectomy. The inherent risks of bleeding, infection, need for open surgery, risk of common bile duct injury, risk of common duct stones or complications that could require ERCP and ongoing abdominal pain related to her RINCON and possible irritable bowel syndrome were reviewed. Patient seemed understand her options and wanted to proceed.] Procedure: [] The patient was identified in preoperative holding and again in the operating room and placed supine on the table. The patient voided bladder pharmacy operations specialist, sequential compression stockings were in place, subcu heparin had been administered and antibiotics per protocol were given. The patient was induced in general endotracheal anesthesia administered with excellent effect. An appropriate time-out was performed. A footboard was utilized. The patient's abdomen was widely prepped and draped in the usual manner for surgery using chlorhexidine. Preemptive local was used at all trocar insertion sites. Again at the supraumbilical location and after infiltrating local, made a stab incision and placed a Veress needle without difficulty. An appropriate drop test was per formed and a pneumoperitoneum of 15 mmHg was obtained using carbon dioxide. Next, the needle was withdrawn and a 5 mm/30 degree laparoscoped over Optiview trocar was used to access the abdomen without incident. Upon examining the abdomen, there was no evidence of injury from the Veress needle or trocar. Next, 5 mm trocars were placed in the epigastric, subcostal and right anterior axillary line just above the line of the umbilicus. Under direct laparoscopic vision, the 5 mm umbilical port was upsized to a 10 mm. The patient was then positioned in reverse Trendelenburg position and banked left. The gallbladder was clearly identified and grasped by its fundus. It was retracted cranially and anteriorly and dissection began in the cystic triangle. The cystic duct was identified at its junction on the gallbladder and dissection began laterally, then circumferentially dissected using the [place] dissector and hook. The cystic artery was then carefully identified and circumferentially dissected. Once dissection of both structures was complete and the critical view of safety demonstrated, the duct and artery were double clipped proximally and once distally and sharply divided. Electrocautery was used to remove the gallbladder from its fossa on the liver. Liver bed was inspected for hemostasis and the clips were noted to be on the respective structures. The gallbladder was placed in an Endo-Catch bag and delivered through the umbilicus under direct laparoscopic vision. The abdomen was again inspected with the laparoscoped and a abdomen deflated to assess for hemostasis. The patient was returned to neutral position, the abdomen deflated and the fascia of the supraumbilical incision closed with interrupted Vicryl sutures. Skin was closed with 4-0 Monocryl subcuticular sutures. Mastisol and Steri-Strips were applied followed by Band-Aids. The patient tolerated the procedure well and was extubated recovered in stable condition. All sponge instrument counts were correct x 2. At the patient's request I called her , Junaid at [phone] and apprise them of the operation and post-op plan. His questions seemed to be satisfactorily answered.
[2021-11-27] MEDS: fentaNYL citrate/PF 100 MCG/2 ML VIAL 50 MCG IVPUSH ×2 (13:53→14:33)
[2021-11-27] MEDS: oxyCODONE HCl Immed Release 5 MG TABLET PO (13:53)
== END 2021-11-27 16:15 | disposition home or self-care (01) ==
LOC: HO.SSS 08:55
PROVIDERS: PCP Internal Medicine; Visit Provider Surgery
PROC: 0FT44ZZ Resection of Gallbladder, Percutaneous Endoscopic Approach (ICD-10-PCS; CPT 47562; principal; 2021-11-27 11:10)
DX: K80.10 Calculus of gallbladder with chronic cholecystitis without obstruction (principal); K82.8 Other specified diseases of gallbladder; K76.0 Fatty (change of) liver, not elsewhere classified; K27.9 Peptic ulcer, site unspecified, unspecified as acute or chronic, without hemorrhage or perforation; I10 Essential (primary) hypertension; E78.00 Pure hypercholesterolemia, unspecified; E53.8 Deficiency of other specified B group vitamins; R55 Syncope and collapse; E66.9 Obesity, unspecified; Z68.34 Body mass index [BMI] 34.0-34.9, adult; Z79.899 Other long term (current) drug therapy; Z88.8 Allergy status to other drugs, medicaments and biological substances; Z86.16 Personal history of COVID-19
CPT/HCPCS: 47562; 88304; J0690; J1100; J2250; J2405; J2795; J3010

== ENCOUNTER 2022-09-18 10:55 | Outpatient (REF) | payer BC, SELFPAY ==
[2022-09-18 14:04] LABS: MANUAL DIFF FLAG NO
[2022-09-18 14:19] LABS: Basophils Absolute Auto 0.1 X10*3/uL (0.0-0.2); Basophils Percent Auto 0.9 % (0-2); Eosinophils Absolute Auto 0.2 X10*3/uL (0.0-0.4); Eosinophils Percent Auto 1.9 % (0-4); Hematocrit 40.8 % (37.0-47.0); Hemoglobin 13.3 g/dl (12.0-16.0); Imm Gran Abs Auto 0.03 X10*3/uL (0.00-0.03); Imm Gran Pct Auto 0.3 % (0.0-0.4); Lymphocytes Absolute Auto 2.8 X10*3/uL (1.2-4.9); Lymphocytes Percent Auto 32.6 % (20-40); Mean Corpuscular HGB Conc 32.6 g/dl (31.0-35.0); Mean Corpuscular Hemoglobin 31.4 pg (27.0-33.0); Mean Corpuscular Volume 96.2 fL (80.0-98.0); Mean Platelet Volume 11.4 fL (9.4-12.3); Monocytes Absolute Auto 0.5 X10*3/uL (0.1-1.2); Monocytes Percent Auto 5.4 % (2-11); Neutrophils Absolute Auto 5.1 x10*3/uL (2.0-8.3); Neutrophils Percent Auto 58.9 % (45-73); Platelet Count 245 X10*3/uL (160-400); Red Blood Count 4.24 X10*6/uL (4.20-5.50); Red Cell Distribution Width 13.8 % (11.0-16.0); White Blood Count 8.6 X10*3/uL (4.8-10.8)
[2022-09-18 14:35] LABS: Alanine Aminotransferase 18 U/L (0-31); Albumin Level 4.2 g/dL (3.5-5.0); Alkaline Phosphatase 82 U/L (39-117); Anion Gap 14 (12-20); Aspartate Amino Transferase 16 U/L (5-31); Bilirubin Total 0.7 mg/dL (0.0-1.0); Blood Urea Nitrogen 11 mg/dL (9-16); Calcium 9.5 mg/dL (8.4-10.2); Carbon Dioxide 27 mmol/L (22-29); Chloride 105 mmol/L (96-108); Cholesterol 199 mg/dL; Estimated Glomerular Filt Rate > 60; Glucose Random 91 mg/dL (60-115); HDL Cholesterol 49 mg/dL; LDL Cholesterol Calculated 109 mg/dl; Potassium 4.8 mmol/L (3.3-5.1); Sodium 141 mmol/L (135-145); Total Protein 6.8 g/dL (6.5-8.0); Triglycerides 206 mg/dL
[2022-09-18 15:06] LABS: Folate 13.1 ng/mL (> or = 4.0); Free T4 (Free Thyroxine) 0.93 ng/dL (0.71-1.85); Thyroid Stimulating Hormone 3.78 uIU/mL (0.32-4.0); Vitamin B12 519 pg/mL (200-900); Vitamin D 25-OH Total 35.9 ng/mL (>30)
== END 2022-09-18 10:56 | disposition home or self-care (01) ==
LOC: HO.HMGCLDS 10:55
PROVIDERS: PCP Internal Medicine; Visit Provider Internal Medicine
DX: E03.9 Hypothyroidism, unspecified (principal); I10 Essential (primary) hypertension; E78.00 Pure hypercholesterolemia, unspecified; E55.9 Vitamin D deficiency, unspecified
CPT/HCPCS: 36415; 80053; 80061; 82306; 82607; 82746; 84439; 84443; 85025

== ENCOUNTER 2022-10-12 08:51 | Outpatient (REF) | payer BC, SELFPAY ==
--- NOTE | 2022-10-12 09:02 | ECG_ITS ---
Test Reason : PREOP Blood Pressure : / mmHG Vent. Rate : 073 BPM Atrial Rate : 073 BPM P-R Int : 162 ms QRS Dur : 080 ms QT Int : 420 ms P-R-T Axes : 017 004 030 degrees QTc Int : 462 ms Normal sinus rhythm Possible Inferior infarct (cited on or before 27-NOV-2016) Abnormal ECG When compared with ECG of 25-APR-2021 12:55, Premature atrial complexes are no longer Present Referred By: Linette Newell Electronically Signed By:JAMES MARTINEZ
[2022-10-12 09:46] LABS: Hematocrit 40.5 % (37.0-47.0); Hemoglobin 13.2 g/dl (12.0-16.0); Mean Corpuscular HGB Conc 32.6 g/dl (31.0-35.0); Mean Corpuscular Hemoglobin 31.1 pg (27.0-33.0); Mean Corpuscular Volume 95.5 fL (80.0-98.0); Mean Platelet Volume 10.4 fL (9.4-12.3); Platelet Count 232 X10*3/uL (160-400); Red Blood Count 4.24 X10*6/uL (4.20-5.50); Red Cell Distribution Width 13.9 % (11.0-16.0); White Blood Count 7.7 X10*3/uL (4.8-10.8)
[2022-10-12 09:51] LABS: Prothrombin Time 11.4 SEC (10.0-13.1)
[2022-10-12 11:46] LABS: Anion Gap 16 (12-20); Blood Urea Nitrogen 12 mg/dL (9-16); Calcium 9.7 mg/dL (8.4-10.2); Carbon Dioxide 25 mmol/L (22-29); Chloride 106 mmol/L (96-108); Estimated Glomerular Filt Rate > 60; Glucose Random 105 mg/dL (60-115); Potassium 4.7 mmol/L (3.3-5.1); Sodium 142 mmol/L (135-145)
[2022-10-12 12:01] LABS: TSH reflex Free T4 4.51 uIU/mL (0.32-4.0)
[2022-10-12 12:57] LABS: Free T4 (Free Thyroxine) 0.91 ng/dL (0.71-1.85)
== END 2022-10-12 08:52 | disposition home or self-care (01) ==
LOC: HO.LAB 08:51
PROVIDERS: PCP Internal Medicine; Visit Provider Nurse Practitioner Family
DX: Z01.818 Encounter for other preprocedural examination (principal); E03.9 Hypothyroidism, unspecified; I10 Essential (primary) hypertension; M20.41 Other hammer toe(s) (acquired), right foot
CPT/HCPCS: 36415; 80048; 84439; 84443; 85027; 85610; 93005

== ENCOUNTER 2023-04-01 12:08 | Outpatient (AMB) | payer BC, SELFPAY ==
[2023-04-01 12:31] VITALS: BP 134/82; PULSE 79; O2SAT 98; BMI 36.6
--- NOTE | 2023-04-01 12:31 | A.OFFPC_ITS ---
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 boulardii)) 5,000 mmu cells PO DAILY Tobacco use date assessed: 10/09/22 Dental Screening Dental Screen Date: 04/01/23 Did you have a dental visit in the last 12 months?: Yes Did you have a dental problem in the last 6 months where you did not have access to dental care?: No Was dental information given to patient?: Patient has dentist HPI PE HPI Details 62-year-old obese female with GERD hyper cholesterolemia hypothyroid hypertension last seen in September 2022 patient is here for physical exam. Colonoscopy is up-to-date June 2020. Review of the notes has been seen by orthopedics December 2022 for the mucoid cyst in the right middle finger status post excision on the left hand(January 2019) and planned surgical excision. Patient was also seen by the nurse practitioner for preop for October 2022 hammertoe procedure. Right [facility] Medical History Annual physical exam Cholelithiasis Chronic calculous cholecystitis COVID-19 Fatty liver Gastroenteritis GERD (gastroesophageal reflux disease) Hypercholesterolemia Hypertension Hypothyroid Impacted cerumen of left ear Knee osteoarthritis Knee pain, right Low back pain Mammogram declined Mammogram declined Obesity Pneumonia due to COVID-19 virus PUD (peptic ulcer disease) Shoulder pain, bilateral Syncope Viral pneumonia Vitamin B12 deficiency Surgical History Hx of toe surgery Hx of colonoscopy History of D&C History of surgery Family History (Updated 04/01/23 @ 12:56 by Tamar Bermudez MD) Father No problems noted. Mother No problems noted. Paternal Uncle Lung cancer Esophageal cancer Throat cancer Maternal Uncle Myocardial infarction Paternal Aunt Lung cancer Maternal Aunt CVA (cerebral vascular accident) Paternal Grandmother Ovarian cancer Social History (Updated 04/01/23 @ 12:57 by Tamar Bermudez MD) Household Members: Spouse Housing: House Are you a primary personal care home administrator to a significant other at home: No Do you presently have visiting nurse or other home services: No Alcohol intake: never Comment: Does not use cane all the time Patient Tobacco Use Status: Former Tobacco user Tobacco use type: Cigarette Years Smoked: high school e-Cigarette/Vaping Use: Never Used Second Hand Smoke Exposure: No service: No Current occupational status: disabled Cognitive needs: No Hearing needs: No Vision needs: Yes Questionnaire Thrive Questionnaire Date Thrive assessed: 07/02/22 BLAYNE-7 AMB Questionnaire BLAYNE-7 Date BLAYNE - 7 assessed: 07/02/22 Source: Developed by Drs. Rupert Marks, Luz La, Bobo Chacon and colleagues, with an educational oswald from [employer]. Review of Systems Const Denies poor appetite and Denies weakness Eyes Denies no additional complaints ENT Reports Normal hearing present, Denies dizziness, Denies nasal congestion, Denies tinnitus and Denies sore throat Card Denies chest pain, Denies syncope, Denies rapid heart rate and Denies dyspnea Resp Denies cough and Denies dyspnea GI Denies change in stool character, Reports constipation, Denies diarrhea, Denies nausea and Denies vomiting Denies urinary frequency, Denies difficulty voiding and Denies dysuria Neuro Reports Normal hearing present, Denies confusion, Denies dizziness, Denies syncope and Denies weakness Psych Denies confusion Physical exam (Primary Care) Vital Signs: Last Vital Signs Pulse 79 04/01/23 12:31 BP 134/82 04/01/23 12:31 Pulse Ox 98 04/01/23 12:31 Oxygen Delivery Method Room Air 04/01/23 12:31 BMI result Body Mass Index 36.6 Tobacco/Smoking Status: Tobacco use Status Tobacco use date assessed 10/09/22 04/01/23 12:33 Patient Tobacco Use Status Never used Tobacco 12/14/23 12:33 Tobacco use type Cigarette 04/01/23 12:33 e-Cigarette/Vaping Use Never Used 04/01/23 12:33 Thrive Assessment: Date of Thrive Assessment Date Thrive assessed 07/02/22 04/01/23 12:33 Const General: alert and awake; No confusion Orientation/consciousness: No confusion HENMT Head: Yes normocephalic Ears: external ears normal and TM's normal bilaterally Face and sinus: Yes normal facial exam Mouth: moist mucous membranes Throat: Yes tonsils normal Eyes Conjunctivae: conjunctivae normal Pupils: Equal, round and reactive pupils present and Pupil accommodation reflex normal Direct Ophthalmoscopy: normal light reflex Neck Neck: No lymphadenopathy Thyroid: Thyroid normal Chest Chest palpation & inspection: normal inspection of the chest Resp Effort & Inspection: normal respiratory effort and no audible wheezes Auscultation: clear to auscultation bilaterally, no crackles, no wheezes and lung sounds not diminished Cardio Rate: regular rate Rhythm: regular rhythm Peripheral pulses: radial pulses present and dorsalis pedis present GI Other: guaiac negative Palpation (GI): no masses Auscultation: normal bowel sounds and normoactive bowel sounds Skin General skin exam: no rashes or lesions noted Rashes: no rashes Neuro General: deep tendon reflexes 2+ bilaterally and No confusion Cranial nerves: Yes Equal, round and reactive pupils present, Yes Midline tongue present, Yes Normal hearing present and Yes Ability to bilaterally elevate shoulders present Cognition (Neuro): normal cognition Gait exam (Neuro): Normal gait present Motor exam (neuro): 5/5 motor strength present throughout Deep tendon reflexes (DTR's): Right brachioradialis reflex intensity grade: 2+, Left brachioradialis reflex intensity grade: 2+, Right patellar reflex intensity grade: 2+ and Left patellar reflex intensity grade: 2+ Extrem General: No edema Office Procedures Flu Questionnaire Does the patient have a severe egg allergy?: No Does the patient have severe life threatening allergies?: No Does the patient have a fever or illness today?: No Has the patient ever had Guillain-Wesley Syndrome?: No Has the patient ever had any past reaction to a flu shot?: No Immunizations flu vacc [id number] 6mos up(PF) 60 mcg(15 mcgx4)/0.5 mL IM syringe Performing Provider: Tamar Bermudez MD Performing Location: [facility] Administered by: DELILAH Espinal on 04/01/23 12:47 Dose Route Admin Location Dispensed Lot Number Expiration Date NDC Retail Shift Manager 0.5 mL IM Right Deltoid 0.5 mL [id number] 10/17/23 66230-978-03 [employer] VIS Given Date VIS Provided VIS Publication Date 04/01/23 Single Vaccine 20 Eligibility Eligibility Date Funding Source Not [facility] Eligible 04/01/23 Private Assessment and Plan Assessment & Plan (1) Annual physical exam: Code(s): Z00.00 - Encounter for general adult medical examination without abnormal findings (2) Digital mucous cyst of finger of right hand: Comment: 01/2023 Code(s): M67.441 - Ganglion, right hand Plan: Patient has been seen by orthopedics and planned surgery on the right ganglion cyst (3) Obstructive sleep apnea (adult) (pediatric): Code(s): G47.33 - Obstructive sleep apnea (adult) (pediatric) Plan: Discussed about treatment for obstructive sleep apnea (4) Obesity: Code(s): E66.9 - Obesity, unspecified Qualifiers: Body mass index: BMI 34.0-34.9 Obesity classification: adult class 1 (BMI 30 - 34.9) Obesity type: due to excess calories Serious obesity comorbidity presence: without serious comorbidity Qualified Code(s): E66.09 - Other obesity due to excess calories; Z68.34 - Body mass index [BMI] 34.0-34.9, adult Plan: Diet and exercise (5) Hypertension: Code(s): I10 - Essential (primary) hypertension Qualifiers: Hypertension type: essential hypertension Qualified Code(s): I10 - Essential (primary) hypertension Plan: Continue with blood pressure medication. Decrease salt intake and exercise patient is on atenolol 25 mg once a day (6) Hypothyroid: Code(s): E03.9 - Hypothyroidism, unspecified Qualifiers: Hypothyroidism type: acquired Qualified Code(s): E03.9 - Hypothyroidism, unspecified Plan: Continue with thyroid medication (7) Hypercholesterolemia: Comment: BORDERLINE, NO MEDS Code(s): E78.00 - Pure hypercholesterolemia, unspecified Plan: Avoid fried foods, chicken skin, eggs, butter margarine, pastries and meat. Be it pork or beef they have a lot of cholesterol LDL goal of less than 130 and triglyceride of less than 150. (8) GERD (gastroesophageal reflux disease): Code(s): K21.9 - Gastro-esophageal reflux disease without esophagitis Plan: Avoid the foods that causes that usually spicy foods, tomato products, juices, coffee, soda and foods that your sensitive to. After eating do not lie down, allow 3-4 hours before in lie down. And keep the head of bed above 30 degrees to avoid the acid from going up. 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 Panel Today E78.00 - Pure hypercholesterolemia, unspecified Thyroid Stimulating Hormone Today E78.00 - Pure hypercholesterolemia, unspecified Lipid Panel Today E78.00 - Pure hypercholesterolemia, unspecified UA w Microscopic Today E78.00 - Pure hypercholesterolemia, unspecified Complete Blood Count Auto Diff Today E78.00 - Pure hypercholesterolemia, unspecified Free T4 (Free Thyroxine) Today E78.00 - Pure hypercholesterolemia, unspecified US renal BI Today I10 - Essential (primary) hypertension Coding Level of Care Code Est Pt Prev Care 40-64y(43950) Diagnoses Annual physical exam Z00.00 Digital mucous cyst of finger of right hand M67.441 Obstructive sleep apnea (adult) (pediatric) G47.33 Class 1 obesity due to excess calories without serious comorbidity with body mass index (BMI) of 34.0 to 34.9 in adult E66.09; Z68.34 Body mass index: BMI 34.0-34.9 Obesity classification: adult class 1 (BMI 30 - 34.9) Obesity type: due to excess calories Serious obesity comorbidity presence: without serious comorbidity Essential hypertension I10 Hypertension type: essential hypertension Acquired hypothyroidism E03.9 Hypothyroidism type: acquired Hypercholesterolemia E78.00 GERD (gastroesophageal reflux disease) K21.9 Hammertoe of right foot M20.41 Bile salt-induced diarrhea K90.89
== END 2023-04-01 13:27 | disposition home or self-care (01) ==
PROVIDERS: Visit Provider Internal Medicine
DX: Z00.00 Encounter for general adult medical examination without abnormal findings (principal); E66.09 Other obesity due to excess calories; Z68.34 Body mass index [BMI] 34.0-34.9, adult; Z23 Encounter for immunization; M67.441 Ganglion, right hand; G47.33 Obstructive sleep apnea (adult) (pediatric); I10 Essential (primary) hypertension; E03.9 Hypothyroidism, unspecified; E78.00 Pure hypercholesterolemia, unspecified; K21.9 Gastro-esophageal reflux disease without esophagitis; M20.41 Other hammer toe(s) (acquired), right foot; K90.89 Other intestinal malabsorption
CPT/HCPCS: 90471; 90686; 99396

== ENCOUNTER 2023-04-14 12:48 | Outpatient (REF) | payer BC, SELFPAY ==
--- NOTE | ~2023-04-14 | US_ITS ---
EXAMINATION: US RETROPERITONEAL LIMITED (RENAL ONLY) CLINICAL INFORMATION: Essential (primary) hypertension. COMPARISON: Limited abdominal ultrasound 10/24/2021. Ultrasound abdomen 11/27/2016. CT abdomen and pelvis 11/27/2016. TECHNIQUE: Real-time imaging of the kidneys. Limited visualization due to bowel gas. FINDINGS: RIGHT KIDNEY: 11.8 x 5.2 x 6.2 cm (SAG x AP x TRV). No hydronephrosis. No renal calculi. Renal cortical thickness is normal. Limited visualization. LEFT KIDNEY: 12.9 x 6.4 x 4.6 cm (SAG x AP x TRV). No hydronephrosis. No renal calculi. Renal cortical thickness is normal. Limited visualization. Lower pole 5.8 x 5.2 x 5.4 cm cyst, previously 4.6 x 3.9 x 3.9 cm on 11/27/2016. US/US renal BI IMPRESSION: Left renal 5.8 cm lower pole cyst has increased in size.
== END 2023-04-14 12:49 | disposition home or self-care (01) ==
LOC: HO.HMGCX 12:48
PROVIDERS: PCP Internal Medicine; Visit Provider Internal Medicine
DX: I10 Essential (primary) hypertension (principal)
CPT/HCPCS: 76775

== ENCOUNTER 2023-07-06 10:49 | Outpatient (REF) | payer BC, SELFPAY ==
[2023-07-06 13:28] LABS: MANUAL DIFF FLAG NO
[2023-07-06 13:44] LABS: Basophils Percent Auto 0.5 % (0-2); Eosinophils Absolute Auto 0.1 X10*3/uL (0.0-0.4); Eosinophils Percent Auto 1.5 % (0-4); Hematocrit 41.7 % (37.0-47.0); Hemoglobin 13.8 g/dl (12.0-16.0); Imm Gran Abs Auto 0.04 X10*3/uL (0.00-0.03); Imm Gran Pct Auto 0.5 % (0.0-0.4); Lymphocytes Absolute Auto 2.7 X10*3/uL (1.2-4.9); Lymphocytes Percent Auto 34.7 % (20-40); Mean Corpuscular HGB Conc 33.1 g/dl (31.0-35.0); Mean Corpuscular Hemoglobin 31.2 pg (27.0-33.0); Mean Corpuscular Volume 94.3 fL (80.0-98.0); Mean Platelet Volume 10.9 fL (9.4-12.3); Monocytes Absolute Auto 0.5 X10*3/uL (0.1-1.2); Monocytes Percent Auto 6.5 % (2-11); Neutrophils Absolute Auto 4.4 x10*3/uL (2.0-8.3); Neutrophils Percent Auto 56.3 % (45-73); Platelet Count 216 X10*3/uL (160-400); Red Blood Count 4.42 X10*6/uL (4.20-5.50); Red Cell Distribution Width 13.8 % (11.0-16.0); White Blood Count 7.8 X10*3/uL (4.8-10.8)
[2023-07-06 14:04] LABS: Appearance Urine Clear; Color Urine Yellow; Glucose Urine UA Negative (Negative); Leukocyte Esterase Urine Negative (Negative); Nitrite Urine Negative (Negative); UMIC TRIGGER UA YES; Urine Blood Trace (Negative); Urine Ketones Negative (Negative); Urine Protein Negative (Neg-Trace)
[2023-07-06 14:15] LABS: Bacteria Urine Trace (None Seen); Hyaline Casts Urine 0-2 /LPF (0-2); WBC Urine 0-5 /HPF (0-5)
[2023-07-06 14:23] LABS: Alanine Aminotransferase 24 U/L (0-31); Albumin Level 4.2 g/dL (3.5-5.0); Alkaline Phosphatase 78 U/L (39-117); Anion Gap 15 (12-20); Aspartate Amino Transferase 21 U/L (5-31); Bilirubin Total 0.5 mg/dL (0.0-1.0); Blood Urea Nitrogen 12 mg/dL (9-16); Calcium 9.8 mg/dL (8.4-10.2); Carbon Dioxide 26 mmol/L (22-29); Chloride 106 mmol/L (96-108); Cholesterol 197 mg/dL (<200); Estimated Glomerular Filt Rate > 60; Glucose Random 96 mg/dL (60-115); HDL Cholesterol 53 mg/dL (>40); LDL Cholesterol Calculated 111 mg/dL (<100); Potassium 5.1 mmol/L (3.3-5.1); Sodium 142 mmol/L (135-145); Total Protein 6.9 g/dL (6.5-8.0); Triglycerides 168 mg/dL (<150)
[2023-07-06 14:37] LABS: Free T4 (Free Thyroxine) 0.96 ng/dL (0.71-1.85)
== END 2023-07-06 10:50 | disposition home or self-care (01) ==
LOC: HO.HMGCLDS 10:49
PROVIDERS: PCP Internal Medicine; Visit Provider Internal Medicine
DX: E78.00 Pure hypercholesterolemia, unspecified (principal)
CPT/HCPCS: 36415; 80053; 80061; 81001; 84439; 84443; 85025

== ENCOUNTER 2023-07-08 12:41 | Outpatient (AMB) | payer BC, SELFPAY ==
[2023-07-08 12:42] VITALS: BP 132/80; PULSE 86; O2SAT 99; BMI 36.9
--- NOTE | 2023-07-08 12:42 | A.OFFPC_ITS ---
Vital Signs 07/08/23 12:42 Height 5 ft 4 in Weight 215 lb BMI 36.9 BP 132/80 Blood Pressure Location Lt brachial Position Sitting Pulse 86 Pulse Source Pulse Oximeter Pulse Oximetry (%) 99 Oxygen Delivery Method Room Air Intake Visit Reasons: obesity Intake Note: Patient is here to follow up Refining Engineer Required: No Allergies metoprolol Allergy (Severe, Verified 07/08/23 12:43) Anaphylaxis Tobacco use date assessed: 07/08/23 Dental Screening Dental Screen Date: 07/08/23 Did you have a dental visit in the last 12 months?: Yes Did you have a dental problem in the last 6 months where you did not have access to dental care?: No Was dental information given to patient?: Patient has dentist HPI obesity HPI Details 62-year-old obese female with obstructiv e sleep apnea hypertension hypothyroid hypercholesterolemia GERD last seen in March 2023. Patient is up-to-date with colonoscopy . [facility] Medical History Annual physical exam Cholelithiasis Chronic calculous cholecystitis COVID-19 Fatty liver Gastroenteritis GERD (gastroesophageal reflux disease) Hypercholesterolemia Hypertension Hypothyroid Impacted cerumen of left ear Knee osteoarthritis Knee pain, right Low back pain Mammogram declined Mammogram declined Obesity Pneumonia due to COVID-19 virus PUD (peptic ulcer disease) Shoulder pain, bilateral Syncope Viral pneumonia Vitamin B12 deficiency Surgical History Hx of toe surgery Hx of colonoscopy History of D&C History of surgery Family History (Updated 04/01/23 @ 12:56 by Tamar Bermudez MD) Father No problems noted. Mother No problems noted. Paternal Uncle Lung cancer Esophageal cancer Throat cancer Maternal Uncle Myocardial infarction Paternal Aunt Lung cancer Maternal Aunt CVA (cerebral vascular accident) Paternal Grandmother Ovarian cancer Social History (Updated 04/01/23 @ 12:57 by Tamar Bermudez MD) Household Members: Spouse Housing: House Are you a primary medicare coordinator to a significant other at home: No Do you presently have visiting nurse or other home services: No Alcohol intake: never Comment: Does not use cane all the time Patient Tobacco Use Status: Former Tobacco user Tobacco use type: Cigarette Years Smoked: high school e-Cigarette/Vaping Use: Never Used Second Hand Smoke Exposure: No service: No Current occupational status: disabled Cognitive needs: No Hearing needs: No Vision needs: Yes Questionnaire Thrive Questionnaire Date Thrive assessed: 07/08/23 I am a: Patient What is your living situation today?: I have a steady place to live Within the past 12 months, did the food you bought not last and you didn't have the money to get more?: Never true Within the past 12 months, did you worry whether your food would run out before you got money to buy more?: Never true Do you have trouble paying for medicines?: No Do you have trouble getting transportation to medical appointments?: No Do you have trouble paying your heating and electricity bill?: No Do you have trouble taking care of your child, family member or friend?: No Do you have trouble with day-to-day activities such as bathing, preparing meals, shopping, managing finances, etc.?: No Are you currently unemployed and looking for a job?: No Are you interested in more education?: No Please select the resources that you would like help with: None THRIVE Score: 0 AUDIT C Alcohol Use Questionnaire (AUDIT-C) 1. How often do you have a drink containing alcohol?: Never 2. How many drinks containing alcohol do you have on a typical day when you are drinking?: 1 or 2 3. How often do you have six or more drinks on one occasion?: Never Total Score: 0 Score Reviewed/Action Taken: No BLAYNE-7 AMB Questionnaire BLAYNE-7 Date BLAYNE - 7 assessed: 07/08/23 Source: Developed by Drs. Rupert Marks, Luz La, Bobo Chacon and colleagues, with an educational oswald from [employer]. Physical exam (Primary Care) Vital Signs: Last Vital Signs Pulse 86 07/08/23 12:42 BP 132/80 07/08/23 12:42 Pulse Ox 99 07/08/23 12:42 Oxygen Delivery Method Room Air 07/08/23 12:42 BMI result Body Mass Index 36.9 Tobacco/Smoking Status: Tobacco use Status Tobacco use date assessed 07/08/23 07/08/23 12:44 Patient Tobacco Use Status Former Tobacco user 07/08/23 12:44 Tobacco use type Cigarette 07/08/23 12:44 e-Cigarette/Vaping Use Never Used 07/08/23 12:44 Thrive Assessment: Date of Thrive Assessment Date Thrive assessed 07/08/23 07/08/23 12:44 Const General: alert; No acute distress Eyes Conjunctivae: conjunctivae normal Resp Auscultation: clear to auscultation bilaterally Cardio Rate: regular rate Rhythm: regular rhythm GI Inspection: Yes normal to inspection Extrem General: Yes normal to inspection and No edema Assessment and Plan Assessment & Plan (1) Obesity: Code(s): E66.9 - Obesity, unspecified Qualifiers: Obesity type: due to excess calories Obesity classification: adult class 1 (BMI 30 - 34.9) Serious obesity comorbidity presence: without serious comorbidity Body mass index: BMI 34.0-34.9 Qualified Code(s): E66.09 - Other obesity due to excess calories; Z68.34 - Body mass index [BMI] 34.0-34.9, adult Plan: Diet and exercise (2) Hypertension: Code(s): I10 - Essential (primary) hypertension Qualifiers: Hypertension type: essential hypertension Qualified Code(s): I10 - Essential (primary) hypertension Plan: Continue with blood pressure medication. Decrease salt intake and exercise on atenolol 25 mg once a day (3) Hypothyroid: Code(s): E03.9 - Hypothyroidism, unspecified Qualifiers: Hypothyroidism type: acquired Qualified Code(s): E03.9 - Hypothyroidism, unspecified Plan: Continue with thyroid medication (4) Hypercholesterolemia: Comment: BORDERLINE, NO MEDS Code(s): E78.00 - Pure hypercholesterolemia, unspecified Plan: Avoid fried foods, chicken skin, eggs, butter margarine, pastries and meat. Be it pork or beef they have a lot of cholesterol LDL goal of less than 130 and triglyceride of less than 150. (5) GERD (gastroesophageal reflux disease): Code(s): K21.9 - Gastro-esophageal reflux disease without esophagitis Plan: Avoid the foods that causes that usually spicy foods, tomato products, juices, coffee, soda and foods that your sensitive to. After eating do not lie down, allow 3-4 hours before in lie down. And keep the head of bed above 30 degrees to avoid the acid from going up. (6) Renal cyst, left: Comment: 03/2023 Code(s): N28.1 - Cyst of kidney, acquired Plan: will do US in 6 months Orders: Orders Thyroid Stimulating Hormone 6 Weeks E03.9 - Hypothyroidism, unspecified Comprehensive Met. Panel 6 Weeks E03.9 - Hypothyroidism, unspecified US renal BI 6 Months N28.1 - Cyst of kidney, acquired Free T4 (Free Thyroxine) 6 Weeks N28.1 - Cyst of kidney, acquired Medications: Changed From levothyroxine 50 mcg PO DAILY 90 tabs 3RF E03.9 - Hypothyroidism, unspecified To levothyroxine 75 mcg PO DAILY 30 tabs 3RF E03.9 - Hypothyroidism, unspecified Coding Level of Care Code Est Pt Level 4 (89557) Diagnoses Class 1 obesity due to excess calories without serious comorbidity with body mass index (BMI) of 34.0 to 34.9 in adult E66.09; Z68.34 Obesity type: due to excess calories Obesity classification: adult class 1 (BMI 30 - 34.9) Serious obesity comorbidity presence: without serious comorbidity Body mass index: BMI 34.0-34.9 Essential hypertension I10 Hypertension type: essential hypertension Acquired hypothyroidism E03.9 Hypothyroidism type: acquired Hypercholesterolemia E78.00 GERD (gastroesophageal reflux disease) K21.9 Renal cyst, left N28.1
== END 2023-07-08 13:26 | disposition home or self-care (01) ==
PROVIDERS: PCP Internal Medicine; Visit Provider Internal Medicine
DX: E66.09 Other obesity due to excess calories (principal); Z68.34 Body mass index [BMI] 34.0-34.9, adult; I10 Essential (primary) hypertension; E03.9 Hypothyroidism, unspecified; E78.00 Pure hypercholesterolemia, unspecified; K21.9 Gastro-esophageal reflux disease without esophagitis; N28.1 Cyst of kidney, acquired
CPT/HCPCS: 99214

== ENCOUNTER 2023-07-15 19:38 | Observation (INO) | payer BC, SELFPAY ==
--- NOTE | ~2023-07-15 | CT_ITS ---
EXAMINATION: CT ABDOMEN AND PELVIS WITH CONTRAST CLINICAL INFORMATION: Abdominal pain, diarrhea, vomiting COMPARISON: 11/27/2016 TECHNIQUE: Multidetector volumetric images were obtained from the superior aspect of the liver through the pubic symphysis following administration 85 mL of Omnipaque 350 intravenous contrast. Sagittal and coronal reformatted images were obtained on the technologist's workstation. Oral contrast: No This CT examination was performed using dose optimization techniques as appropriate, variously including the following: *Automated exposure control *Adjustment of mA and/or kV according to patient size (this includes techniques or standardized protocols for targeted exams where dose is matched to indication/reason for exam; i.e. extremities or head) *Use of iterative reconstruction technique DLP: 772 mGy-cm FINDINGS: LUNG BASES: The visualized lung bases are unremarkable. LIVER, GALLBLADDER, AND BILIARY TREE: The liver demonstrates hypoattenuation consistent with steatosis. No focal hepatic lesion or biliary ductal dilatation is identified. Patient is status post cholecystectomy. PANCREAS: Unremarkable. SPLEEN: Unremarkable. ADRENAL GLANDS: Unremarkable. KIDNEYS AND URETERS: Bilateral nephrograms are symmetric. No hydronephrosis or obstructing calculus identified. Left lower pole renal cyst measures up to approximately 6 cm; no follow-up recommended. BLADDER: Unremarkable. GASTROINTESTINAL TRACT: No convincing evidence for bowel obstruction. Duodenal diverticulum is suspected. No significant bowel wall thickening. Fluid is present within much of the colon, a finding which can be associated with diarrhea. Appendix appears nondilated. No free fluid or free air is seen. ABDOMINAL WALL: Bilateral fat-containing inguinal hernias. Small fat-containing supraumbilical ventral hernia. LYMPH NODES: Normal. VASCULAR: Unremarkable. PELVIC VISCERA: There is a 3.3 cm left adnexal cyst. OSSEOUS STRUCTURES: There is severe facet arthropathy of the lower lumbar spine. Intervertebral disc space narrowing is also noted. CT/CT abdomen pelvis w IV con IMPRESSION: 1. Fluid within much of the colon, a finding which can be associated with diarrhea. No convincing evidence for bowel obstruction or significant wall thickening. 2. Left adnexal cyst measuring 3.3 cm. Findings likely represent a probable benign cyst. Recommend followup pelvic ultrasonography in 3-6 months. 3. Hepatic steatosis.
[2023-07-15 19:48] VITALS: BP 147/91; BP 196/100; PULSE 123; PULSE 130; RESP 18; TEMP 37.1; O2SAT 98; O2SAT 99; BMI 36.9
[2023-07-15 20:03] LABS: MANUAL DIFF FLAG NO
[2023-07-15 20:05] LABS: Basophils Percent Auto 0.3 % (0-2); Eosinophils Percent Auto 0.3 % (0-4); Hematocrit 46.1 % (37.0-47.0); Hemoglobin 15.2 g/dl (12.0-16.0); Imm Gran Abs Auto 0.06 X10*3/uL (0.00-0.03); Imm Gran Pct Auto 0.5 % (0.0-0.4); Lymphocytes Absolute Auto 0.8 X10*3/uL (1.2-4.9); Lymphocytes Percent Auto 6.6 % (20-40); Mean Corpuscular Hemoglobin 30.8 pg (27.0-33.0); Mean Corpuscular Volume 93.3 fL (80.0-98.0); Monocytes Absolute Auto 0.3 X10*3/uL (0.1-1.2); Monocytes Percent Auto 2.9 % (2-11); Neutrophils Absolute Auto 10.5 x10*3/uL (2.0-8.3); Neutrophils Percent Auto 89.4 % (45-73); Platelet Count 207 X10*3/uL (160-400); Red Blood Count 4.94 X10*6/uL (4.20-5.50); Red Cell Distribution Width 13.7 % (11.0-16.0); White Blood Count 11.7 X10*3/uL (4.8-10.8)
[2023-07-15 20:22] LABS: Alanine Aminotransferase 38 U/L (0-31); Albumin Level 4.6 g/dL (3.5-5.0); Alkaline Phosphatase 88 U/L (39-117); Anion Gap 23 (12-20); Aspartate Amino Transferase 41 U/L (5-31); Bilirubin Total 0.8 mg/dL (0.0-1.0); Blood Urea Nitrogen 15 mg/dL (9-16); Calcium 9.7 mg/dL (8.4-10.2); Carbon Dioxide 24 mmol/L (22-29); Chloride 103 mmol/L (96-108); Creatinine Clr Calc Pharmacy 94.2; Estimated Glomerular Filt Rate > 60; Glucose Random 151 mg/dL (60-115); Potassium 4.6 mmol/L (3.3-5.1); Sodium 145 mmol/L (135-145); Total Protein 8.1 g/dL (6.5-8.0)
[2023-07-15 21:37] LABS: Lipase 37 U/L (8-78)
--- NOTE | 2023-07-15 22:13 | ED_ITS ---
HPI - Nausea/Vomiting/Diarrhea General Chief complaint: Nausea/Vomiting/Diarrhea Stated complaint: N/V/D 4HRS,WEAK,12 UNCONTROLLED SOWEL MOVEMENTS Time Seen by Provider: 07/15/23 21:17 Source: patient and family Mode of arrival: ambulatory Limitations: no limitations History of Present Illness HPI Narrative: Patient comes to the emergency room complaining of 6 hours of nausea vomiting and diarrhea, no abdominal pain. Patient states that she did not take any [id number] medications prior to coming to the emergency room. Patient denies fever chills, no hematuria or dysuria. However, the patient did mentioned that she has occasional vaginal bleeding and she is bleeding today. Related Data Home Medications Medication Instructions Recorded Confirmed cholecalciferol (vitamin D3) 25 25 mcg PO DAILY 02/02/20 04/01/23 mcg (1,000 unit) capsule milk thistle 150 mg capsule 300 mg PO DAILY 11/20/21 04/01/23 Saccharomyces boulardii 250 mg 5,000 mmu cells PO DAILY 03/20/22 04/01/23 capsule (Daily Probiotic (S. boulardii)) omega-3 fatty acids 1,250 mg 1,250 mg PO DAILY 10/09/22 04/01/23 capsule Previous Rx's Medication Instructions Recorded cyanocobalamin (vitamin B-12) 1,000 mcg PO DAILY #30 caps 05/08/20 1,000 mcg capsule atenolol 25 mg tablet 25 mg PO DAILY 90 days #90 tabs 04/13/23 levothyroxine 75 mcg tablet 75 mcg PO DAILY #30 tabs 07/08/23 Allergies Allergy/AdvReac Type Severity Reaction Status Date / Time metoprolol Allergy Severe Anaphylaxis Verified 07/08/23 12:43 Review of Systems 2 Review of Systems: Constitutional : No Weight loss, No Fever, No Chills, No Night Sweats, No Fatigue, No Malaise ENT/Mouth : No Hearing loss, No Ear Pain, No Nasal Congestion, No Sinus Pain, No Hoarseness, No sore throat, No Rhinorrhea, No Swallowing Difficulty Eyes: No Eye Pain, No Swelling, No Redness, No Foreign Body, No Discharge, No Vision Changes Cardiovascular : No Chest Pain, No SOB, No Dyspnea on Exertion, No Orthopnea, No Edema, No Palpitations Respiratory : No Cough, No Sputum, No Wheezing, No Smoke Exposure, No Dyspnea Gastrointestinal : Complaining of nausea vomiting and diarrhea, No Constipation, No abdominal Pain, No Hematochezia, No Melena Genitourinary : Complaining of vaginal bleeding, No Dysuria, No Urinary Frequency, No Hematuria, No Urinary Incontinence, No Urgency, No Flank Pain, No Urinary Flow Changes, No Hesitancy Musculoskeletal : No joint pain, No Myalgias, No Joint Swelling Skin : No Skin Lesions, No rash Neuro : No Weakness, No Numbness, No Paresthesias, No Loss of Consciousness, No Dizziness, No Headache Psych : No Anxiety/Panic, No Depression, No SI/HI/AH/VH, No Social Issues, Heme/Lymph: No Bruising, No Bleeding,No Lymphadenopathy Endocrine : No Polyuria, No Polydipsia, No Temperature Intolerance [facility] Past Medical History Medical History Chronic calculous cholecystitis Cholelithiasis Pneumonia due to COVID-19 virus Viral pneumonia COVID-19 Annual physical exam Gastroenteritis Low back pain Impacted cerumen of left ear Knee pain, right Shoulder pain, bilateral Mammogram declined Fatty liver GERD (gastroesophageal reflux disease) Hypercholesterolemia Vitamin B12 deficiency Knee osteoarthritis PUD (peptic ulcer disease) Mammogram declined Syncope Hypothyroid Hypertension Obesity Surgical History Hx of toe surgery Hx of colonoscopy History of D&C History of surgery Family History Family History (Updated 04/01/23 @ 12:56 by Tamar Bermudez MD) Father No problems noted. Mother No problems noted. Paternal Uncle Lung cancer Esophageal cancer Throat cancer Maternal Uncle Myocardial infarction Paternal Aunt Lung cancer Maternal Aunt CVA (cerebral vascular accident) Paternal Grandmother Ovarian cancer Social History Social History (Updated 04/01/23 @ 12:57 by Tamar Bermudez MD) Household Members: Spouse Housing: House Are you a primary career technical counselor to a significant other at home: No Do you presently have visiting nurse or other home services: No Alcohol intake: never Comment: Does not use cane all the time Patient Tobacco Use Status: Former Tobacco user Tobacco use type: Cigarette Years Smoked: high school Smoked in Last 30 Days: No e-Cigarette/Vaping Use: Never Used Second Hand Smoke Exposure: No Use of substances other than those prescribed or required for medical reasons: No Advance Directives: No Advance Directives Information Provided: No service: No Current occupational status: disabled Cognitive needs: No Hearing needs: No Vision needs: Yes Physical Exam 2 Vital Signs: Vital Signs: Last Vital Signs Temp 98.7 F 07/15/23 19:48 Pulse 123 H 07/15/23 19:48 Resp 18 07/15/23 19:48 BP 147/91 H 07/15/23 19:48 Pulse Ox 98 07/15/23 19:48 O2 Del Method Room Air 07/15/23 19:48 BMI result Body Mass Index 36.9 Const: Other: Appearance: Alert. Oriented X3. No acute distress. Eyes: Pupils equal, round and reactive to light. ENT: Pharynx normal. Significantly dry oral mucosa Neck: Normal inspection. Neck supple. No lymph nodes noted. No crepitus CVS: Normal heart rate and rhythm. Pulses normal. Normal S1 and S2 Respiratory: No respiratory distress. Breath sounds normal. No Wheezing. No rales Abdomen: Soft and nontender. No rigidity. No distention. : Patient does have blood in the vaginal canal, no obvious lesions. Skin: Skin warm and dry. Normal skin color. Normal skin turgor. Extremities: No lower extremity edema. No Lacerations. No Rash Neuro: Oriented X 3. No motor deficit. No sensory deficit. Moving all extremities. No slurred speech. CN 2 through 12 grossly intact Psych: calm, cooperative, normal affect Course Course Course Narrative: -patient receiving IV fluids, Zofran, loperamide -discussed with the patient that if she no vaginal bleeding, I would recommend that we also do a cervical/pelvic exam , patient will also need a referral to OBGYN. Patient agreeable. Medications Administered Discontinued Medications Generic Name Dose Route Start Last Admin Trade Name Freq PRN Reason Stop Dose Admin Sodium Chloride 2,000 mls @ 999 mls/hr 07/15/23 22:12 07/15/23 23:01 Ns IVCONT 07/16/23 00:12 999 mls/hr .Q2H1M ONE Administration Loperamide HCl 4 mg 07/15/23 22:12 07/15/23 23:01 Loperamide Hcl 2 Mg Capsule PO 07/15/23 22:13 4 mg ONCE ONE Administration Loperamide HCl 2 mg 07/16/23 01:02 07/16/23 01:44 Loperamide Hcl 2 Mg Capsule PO 07/16/23 01:03 2 mg ONCE ONE Administration Ondansetron HCl 4 mg 07/15/23 22:12 07/15/23 23:01 Ondansetron Hcl 4 Mg/2 Ml Vial IVPUSH 07/15/23 22:13 4 mg ONCE ONE Administration Medical Decision Making Medical Decision Making [facility] Narrative: -my interpretation of labs: White blood cell count 11.7, likely reactive leukocytosis, chemistry within normal limits, glucose slightly bumped 151, mildly elevation of AST ALT, likely secondary to fatty liver -patient is significantly dehydrated based on physical exam. Patient receiving fluids. -also, noted on physical exam, patient does have vaginal bleeding, confirmed with the speculum exam. Discussed with the patient that she needs to follow-up with OBGYN. Discussed with the patient that there is a potential that this may be malignancy. Patient states that she is aware. Patient states that she will like to see our OBGYN, Dr. Nugent. Stool sample will be sent to the lab to rule out C diff. Patient denies recently being on antibiotics -patient has had at least 6 large bowel movements with watery diarrhea. Patient still looks dehydrated. Patient getting cramps in both legs. -although patient's labs do not look impressive, patient would benefit from admission. -I discussed the above-mentioned with Dr. Sierra, patient agrees to admit the patient Differential Diagnosis Differential Diagnoses: The differential diagnosis associated with the presentation includes (Gastroenteritis, viral syndrome, C diff) Admission/Observation Consideration of admission/observation: Escalation of care including admission/observation considered (Patient is still having considered amount of diarrhea, patient dehydrated, admission considered) Consult Healthcare Provider Management of the patient was discussed with: Hospitalist Lab Data [facility] Lab Attestation statement: I reviewed the patient's lab results. 07/15/23 19:58 07/15/23 19:58 Labs: Lab Results 07/15/23 Range/Units 19:58 WBC 11.7 H (4.8-10.8) X10*3/uL RBC 4.94 (4.20-5.50) X10*6/uL Hgb 15.2 (12.0-16.0) g/dl Hct 46.1 (37.0-47.0) % MCV 93.3 (80.0-98.0) fL MCH 30.8 (27.0-33.0) pg MCHC 33.0 (31.0-35.0) g/dl RDW 13.7 (11.0-16.0) % Plt Count 207 (160-400) X10*3/uL MPV 10.0 (9.4-12.3) fL Immature Gran % (Auto) 0.5 H (0.0-0.4) % Neut % (Auto) 89.4 H (45-73) % Lymph % (Auto) 6.6 L (20-40) % [place] % (Auto) 2.9 (2-11) % Eos % (Auto) 0.3 (0-4) % Baso % (Auto) 0.3 (0-2) % Lymph # (Auto) 0.8 L (1.2-4.9) X10*3/uL [place] # (Auto) 0.3 (0.1-1.2) X10*3/uL Eos # (Auto) 0.0 (0.0-0.4) X10*3/uL Baso # (Auto) 0.0 (0.0-0.2) X10*3/uL Abs Immat Gran (auto) 0.06 H (0.00-0.03) X10*3/uL Absolute Neuts (auto) 10.5 H (2.0-8.3) x10*3/uL Absolute Nucleated RBC 0.000 (0.0-0.012) X10*3/uL Nucleated RBC % (auto) 0.0 (0.0-0.2) /100WBC Sodium 145 (135-145) mmol/L Potassium 4.6 (3.3-5.1) mmol/L Chloride 103 (96-108) mmol/L Carbon Dioxide 24 (22-29) mmol/L Anion Gap 23 H (12-20) BUN 15 (9-16) mg/dL Creatinine 0.72 (0.5-1.4) mg/dL Estim Creat Clear Calc 94.2 Estimated GFR > 60 Random Glucose 151 H (60-115) mg/dL Calcium 9.7 (8.4-10.2) mg/dL Total Bilirubin 0.8 (0.0-1.0) mg/dL AST 41 H (5-31) U/L ALT 38 H (0-31) U/L Alkaline Phosphatase 88 (39-117) U/L Total Protein 8.1 H (6.5-8.0) g/dL Albumin 4.6 (3.5-5.0) g/dL Lipase 37 (8-78) U/L Beta-Hydroxybutyrate 0.45 H (0.02-0.27) mmol/L Independent Historian Clinical information obtained from an independent historian. History obtained from or confirmed by: Spouse Critical Care Time Critical Care Time Critical Care Time: Yes Total Critical Care Time: 75 Attestation: I have personally provided critical care time. Time includes review of lab data, radiology results, discussion with consultants, and monitoring for potential decompensation. Intervention performed as documented. Discharge Plan Discharge Clinical Impression: Gastroenteritis, Acute dehydration, Abnormal vaginal bleeding in postmenopausal patient Patient Disposition: Admitted As Inpatient Instructions: Acute Nausea and Vomiting (ED), Acute Diarrhea (ED) Additional Instructions: Is extremely important that you follow-up with your marketing campaign analyst. Please follow-up with your primary care physician tomorrow. If you have any worsening or new symptoms, please return to the emergency room or call 911 Prescriptions: No Action atenolol 25 mg tablet 25 mg PO DAILY 90 Days Qty: 90 1RF milk thistle 150 mg Capsule 300 mg PO DAILY Rx Instructions: give with meal/snack cholecalciferol (vitamin D3) 25 mcg (1,000 unit) capsule 25 mcg PO DAILY cyanocobalamin (vitamin B-12) 1,000 mcg capsule 1,000 mcg PO DAILY Qty: 30 9RF omega-3 fatty acids 1,250 mg capsule 1,250 mg PO DAILY levothyroxine 75 mcg tablet 75 mcg PO DAILY Qty: 30 3RF Saccharomyces boulardii [Daily Probiotic (S. boulardii)] 250 mg capsule 5,000 mmu cells PO DAILY Referrals: Jona Nugent MD [Physician] - 07/19/23 (Postmenopausal vaginal bleeding)
[2023-07-15 22:37] LABS: Beta-Hydroxybutyrate 0.45 mmol/L (0.02-0.27)
[2023-07-15] MEDS: Loperamide HCl 2 MG CAPSULE 4 MG PO (23:01)
[2023-07-15] MEDS: ondansetron HCL 4 MG/2 ML VIAL IVPUSH (23:01)
[2023-07-15] MEDS: 0.9 % Sodium Chloride 2,000 ML 999 ML IVCONT (23:01)
--- NOTE | 2023-07-16 | ECG_ITS ---
Test Reason : TACHYCARDIA Blood Pressure : / mmHG Vent. Rate : 123 BPM Atrial Rate : 123 BPM P-R Int : 208 ms QRS Dur : 082 ms QT Int : 304 ms P-R-T Axes : 000 -73 136 degrees QTc Int : 435 ms Sinus tachycardia Left axis deviation Anterior infarct , age undetermined Inferior ST elevations present Abnormal ECG When compared with ECG of 12-OCT-2022 09:00, Inferior ST elevations. Cannot rule out anterior infarct Referred By: Pepito Sierra Electronically Signed By:Dre Roberts
[2023-07-16] MEDS: Loperamide HCl 2 MG CAPSULE PO ×3 (01:44→22:56)
--- NOTE | 2023-07-16 02:47 | PM.IMHP ---
History of Present Illness Date of Service: 07/16/23 Chief Complaint: Vomiting and diarrhea This is a 62-year-old female with pertinent history of hypothyroidism, essential hypertension, gastroesophageal reflux disease who presents to the emergency department for evaluation of diarrhea and vomiting. Patient states his symptoms started in the afternoon on the day of presentation. Patient ate [employer] egg muffin, hash brown and orange juice for breakfast followed by hot dog for lunch. Patient did not think the food tasted bad or had gone bad. Around 15:30, she started having loose watery stools. Patient states she had about 10-12 stools since in about 2 episodes of nonbloody emesis. Has generalized abdominal discomfort. She had an episode of food poisoning about 2 months ago but it was not this bad. Patient has not eaten anything due to multiple episodes of vomiting and diarrhea. No fever, chills, chest discomfort, palpitations, shortness of breath, changes in urinary habits. Review of Systems Constitutional: Constitutional: Reports fatigue and Reports malaise Cardiovascular: Cardiovascular: Reports no additional cardiovascular complaints Respiratory: Respiratory: Reports no additional respiratory complaints Gastrointestinal: Gastrointestinal: Reports loose stools and Reports vomiting Genitourinary: Genitourinary: Reports no additional female genitourinary complaints Endocrine: Endocrine: Reports fatigue [facility] Medical History Chronic calculous cholecystitis Cholelithiasis Pneumonia due to COVID-19 virus Viral pneumonia COVID-19 Annual physical exam Gastroenteritis Low back pain Impacted cerumen of left ear Knee pain, right Shoulder pain, bilateral Mammogram declined Fatty liver GERD (gastroesophageal reflux disease) Hypercholesterolemia Vitamin B12 deficiency Knee osteoarthritis PUD (peptic ulcer disease) Mammogram declined Syncope Hypothyroid Hypertension Obesity Family History Father No problems noted. Mother No problems noted. Paternal Uncle Lung cancer Esophageal cancer Throat cancer Maternal Uncle Myocardial infarction Paternal Aunt Lung cancer Maternal Aunt CVA (cerebral vascular accident) Paternal Grandmother Ovarian cancer Surgical History Hx of toe surgery Hx of colonoscopy History of D&C History of surgery Social History Household Members: Spouse Housing: House Are you a primary child care centre director to a significant other at home: No Do you presently have visiting nurse or other home services: No Alcohol intake: never Comment: Does not use cane all the time Patient Tobacco Use Status: Former Tobacco user Tobacco use type: Cigarette Years Smoked: high school Smoked in Last 30 Days: No e-Cigarette/Vaping Use: Never Used Second Hand Smoke Exposure: No Use of substances other than those prescribed or required for medical reasons: No Advance Directives: No Advance Directives Information Provided: No service: No Current occupational status: disabled Cognitive needs: No Hearing needs: No Vision needs: Yes Meds Allergies Allergy/AdvReac Type Severity Reaction Status Date / Time metoprolol Allergy Severe Anaphylaxis Verified 07/08/23 12:43 Active Medications: Current Medications Lactated Ringer's (Lr) 1,000 mls @ 100 mls/hr IVCONT .Q10H [facility] Home Medications Medication Instructions Recorded Confirmed Last Taken Type cholecalciferol (vitamin D3) 25 25 mcg PO DAILY 02/02/20 04/01/23 Unknown History mcg (1,000 unit) capsule milk thistle 150 mg capsule 300 mg PO DAILY 11/20/21 04/01/23 Unknown History Saccharomyces boulardii 250 mg 5,000 mmu cells PO DAILY 03/20/22 04/01/23 Unknown History capsule (Daily Probiotic (S. boulardii)) omega-3 fatty acids 1,250 mg 1,250 mg PO DAILY 10/09/22 04/01/23 Unknown History capsule Physical Exam Vital Signs and Narrative: Vital Signs: Last Vital Signs Temp 98.7 F 07/15/23 19:48 Pulse 123 H 07/15/23 19:48 Resp 18 07/15/23 19:48 BP 147/91 H 07/15/23 19:48 Pulse Ox 98 07/15/23 19:48 O2 Del Method Room Air 07/15/23 19:48 BMI result Body Mass Index 36.9 Middle-aged female lying in bed in no distress Neck supple, no JVD, dry mucous membranes Regular rate and rhythm, S1-S2 heard Regular breath sounds bilaterally, no wheezing or crackles appreciated Abdomen soft nontender, no guarding, no rigidity Patient is awake, alert and oriented to self, place, time and person ; no focal motor deficit Psych: Normal mood No pedal edema Results Labs 07/16/23 05:07 07/16/23 05:07 Labs: Laboratory Results - last 24 hr 07/15/23 19:58 MCV 93.3 MCH 30.8 MCHC 33.0 RDW 13.7 Plt Count 207 MPV 10.0 Immature Gran % (Auto) 0.5 H Neut % (Auto) 89.4 H Lymph % (Auto) 6.6 L [place] % (Auto) 2.9 Eos % (Auto) 0.3 Baso % (Auto) 0.3 Lymph # (Auto) 0.8 L [place] # (Auto) 0.3 Eos # (Auto) 0.0 Baso # (Auto) 0.0 Abs Immat Gran (auto) 0.06 H Absolute Neuts (auto) 10.5 H Absolute Nucleated RBC 0.000 Nucleated RBC % (auto) 0.0 Anion Gap 23 H Estim Creat Clear Calc 94.2 Estimated GFR > 60 Random Glucose 151 H Calcium 9.7 Total Bilirubin 0.8 AST 41 H ALT 38 H Alkaline Phosphatase 88 Total Protein 8.1 H Albumin 4.6 Lipase 37 Beta-Hydroxybutyrate 0.45 H Assessment and Plan (1) Gastroenteritis: Status: Acute Plan This is a 62-year-old female with pertinent history of hypothyroidism, essential hypertension, gastroesophageal reflux disease who presents to the emergency department for evaluation of diarrhea and vomiting. #. Intractable diarrhea and vomiting, gastroenteritis: Will admit patient and continue IV crystalloid resuscitation. Clear liquid diet and advance as tolerated. GI panel pending. Symptomatic treatment. Defer antibiotics for now #. Leukocytosis and tachycardia in the setting of above. No sepsis #. Hypothyroidism: On Synthroid #. Essential hypertension: On atenolol #. Gastroesophageal reflux disease: On PPI #. Obesity: Counseled regarding diet and exercise Med rec pending DVT prophylaxis: Lovenox Full code Quality Stroke Does the patient have a stroke diagnosis?: No VTE Prior VTE?: No VTE Risk Level:: Medical - moderate - high VTE Device Contraindication: Treatment Not Indicated VTE Drug Contraindication: N/A - Med Ordered
[2023-07-16 02:56] VITALS: BP 143/88; PULSE 126; RESP 19; TEMP 37.8; O2SAT 95
[2023-07-16 03:08] LABS: Appearance Urine Cloudy; Color Urine Yellow; Glucose Urine UA Negative (Negative); Leukocyte Esterase Urine Negative (Negative); Nitrite Urine Negative (Negative); Specific Gravity - Urine 1.025 (1.005-1.025); UMIC TRIGGER UACC YES; Urine Blood Moderate (2+) (Negative); Urine Ketones 15 mg/dL (Negative); Urine Protein Negative (Neg-Trace)
[2023-07-16 03:20] LABS: Bacteria Urine None Seen (None Seen); Hyaline Casts Urine 0-2 /LPF (0-2); RBC Urine 0-2 /HPF (0-2); Squamous Epithelial Cell Urine 0-2 /HPF (0-2); WBC Urine 0-5 /HPF (0-5)
[2023-07-16] MEDS: iohexoL 350 MG/ML 100 ML INFUS..BTL 85 ML IV (03:48)
[2023-07-16] MEDS: Diphenoxylate/Atrop 2.5/0.025 TABLET 2 TAB PO (03:51)
[2023-07-16] MEDS: Enoxaparin Sodium 40 MG/0.4 ML SYRINGE SUBCUT (03:52)
[2023-07-16] MEDS: Lactated Ringers 1,000 ML 100 ML IVCONT ×3 (03:57→23:24)
[2023-07-16 03:58] LABS: CDiff Gene PCR NEGATIVE (Negative)
[2023-07-16] MEDS: Acetaminophen 325 MG TABLET 650 MG PO ×2 (03:58→16:01)
[2023-07-16 05:31] LABS: MANUAL DIFF FLAG NO
[2023-07-16 05:35] LABS: Basophils Percent Auto 0.2 % (0-2); Hemoglobin 13.2 g/dl (12.0-16.0); Imm Gran Abs Auto 0.05 X10*3/uL (0.00-0.03); Imm Gran Pct Auto 0.6 % (0.0-0.4); Lymphocytes Absolute Auto 0.5 X10*3/uL (1.2-4.9); Lymphocytes Percent Auto 5.7 % (20-40); Mean Corpuscular Hemoglobin 30.7 pg (27.0-33.0); Mean Platelet Volume 10.3 fL (9.4-12.3); Monocytes Absolute Auto 0.4 X10*3/uL (0.1-1.2); Monocytes Percent Auto 4.4 % (2-11); Neutrophils Absolute Auto 7.6 x10*3/uL (2.0-8.3); Neutrophils Percent Auto 89.1 % (45-73); Platelet Count 193 X10*3/uL (160-400); White Blood Count 8.5 X10*3/uL (4.8-10.8)
[2023-07-16 05:55] LABS: Anion Gap 13 (12-20); Blood Urea Nitrogen 11 mg/dL (9-16); Carbon Dioxide 20 mmol/L (22-29); Chloride 108 mmol/L (96-108); Creatinine Clr Calc Pharmacy 99.7; Estimated Glomerular Filt Rate > 60; Glucose Random 126 mg/dL (60-115); Potassium 3.3 mmol/L (3.3-5.1); Sodium 138 mmol/L (135-145)
--- NOTE | 2023-07-16 09:25 | PHA.MEDREC ---
Pharmacy Consult ? Medication Reconciliation Pharmacy has completed the medication reconciliation. Spoke to patient and confirmed medication list. Patient said she takes vitamin D 2000 iu daily.
--- NOTE | 2023-07-16 11:21 | PC.NURSE ---
pt provided GI sample. upon returning to room pt vomited clear liquid, about 200ccs.
[2023-07-16] MEDS: ondansetron HCL 4 MG/2 ML VIAL IVPUSH (11:24)
--- NOTE | 2023-07-16 11:31 | P.PNIM_ITS ---
Subjective Subjective Date of Service: 07/16/23 Interval History: Day Hospitalist Update diarrhea + vomiting resolving no fever Review of Systems Review of Systems: Yes all other systems are reviewed and are negative Physical Exam 2 Vital Signs: Vital Signs: Last Vital Signs Temp 100.1 F 07/16/23 02:56 Pulse 126 H 07/16/23 02:56 Resp 19 07/16/23 02:56 BP 143/88 H 07/16/23 02:56 Pulse Ox 95 07/16/23 02:56 O2 Del Method Room Air 07/16/23 02:56 BMI result Body Mass Index 36.9 Gen: in no acute distress HEENT: sclera anicteric, moist mucus membranes Neck: supple Lungs: clear to auscultation bilaterally Heart: regular, tachycardic, no murmurs Abd: soft, non-tender, non-distended Ext: no edema Skin: warm/well-perfused Neuro: alert and oriented x3, no focal findings Psych: appropriate affect Objective Data Active Medications Acetaminophen (Acetaminophen 325 Mg Tablet) 650 mg PO Q6H PRN PRN Reason: Pain, Mild (Pain Scale 1-3) Last Admin: 07/16/23 03:58 Dose: 650 mg Documented By: DERREK Enoxaparin Sodium (Enoxaparin Sodium 40 Mg/0.4 Ml Syringe) 40 mg SUBCUT DAILY@0600 [facility] Last Admin: 07/16/23 03:52 Dose: 40 mg Documented By: DERREK Lactated Ringer's (Lr) 1,000 mls @ 100 mls/hr IVCONT .Q10H [facility] Last Admin: 07/16/23 03:57 Dose: 100 mls/hr Documented By: DERREK Loperamide HCl (Loperamide Hcl 2 Mg Capsule) 2 mg PO Q4H PRN PRN Reason: Diarrhea Melatonin (Melatonin 3 Mg Tablet) 6 mg PO BEDTIME PRN PRN Reason: Insomnia Ondansetron HCl (Ondansetron Hcl 4 Mg/2 Ml Vial) 4 mg IVPUSH Q8H PRN PRN Reason: Nausea and Vomiting Last Admin: 07/16/23 11:24 Dose: 4 mg Documented By: BERTHA Sodium Chloride (0.9 % Sodium Chloride Flush 3 Ml Syringe) 3 ml IVFLUSH QSHIFT [facility] Last Admin: 07/16/23 08:19 Dose: Not Given Documented By: ANNY Non-Admin Reason: IV Running Labs 07/16/23 05:07 07/16/23 05:07 Labs: Laboratory Results - last 24 hr 07/15/23 07/16/23 07/16/23 19:58 02:44 02:53 MCV 93.3 MCH 30.8 MCHC 33.0 RDW 13.7 Plt Count 207 MPV 10.0 Immature Gran % (Auto) 0.5 H Neut % (Auto) 89.4 H Lymph % (Auto) 6.6 L Logan % (Auto) 2.9 Eos % (Auto) 0.3 Baso % (Auto) 0.3 Lymph # (Auto) 0.8 L Logan # (Auto) 0.3 Eos # (Auto) 0.0 Baso # (Auto) 0.0 Abs Immat Gran (auto) 0.06 H Absolute Neuts (auto) 10.5 H Absolute Nucleated RBC 0.000 Nucleated RBC % (auto) 0.0 Anion Gap 23 H Estim Creat Clear Calc 94.2 Estimated GFR > 60 Random Glucose 151 H Calcium 9.7 Total Bilirubin 0.8 AST 41 H ALT 38 H Alkaline Phosphatase 88 Total Protein 8.1 H Albumin 4.6 Lipase 37 Beta-Hydroxybutyrate 0.45 H Urine Color Yellow Urine Appearance Cloudy Urine pH 5.0 Ur Specific [place] 1.025 Urine Protein Negative Urine Glucose (UA) Negative Urine Ketones 15 Urine Blood Moderate (2+) H Urine Nitrite Negative Ur Leukocyte Esterase Negative Urine RBC 0-2 Urine WBC 0-5 Ur Squamous Epith Cells 0-2 Urine Bacteria None Seen Hyaline Casts 0-2 C. difficile Tox B Gene NEGATIVE 07/16/23 05:07 MCV 93.0 MCH 30.7 MCHC 33.0 RDW 14.0 Plt Count 193 MPV 10.3 Immature Gran % (Auto) 0.6 H Neut % (Auto) 89.1 H Lymph % (Auto) 5.7 L Logan % (Auto) 4.4 Eos % (Auto) 0.0 Baso % (Auto) 0.2 Lymph # (Auto) 0.5 L Logan # (Auto) 0.4 Eos # (Auto) 0.0 Baso # (Auto) 0.0 Abs Immat Gran (auto) 0.05 H Absolute Neuts (auto) 7.6 Absolute Nucleated RBC 0.000 Nucleated RBC % (auto) 0.0 Anion Gap 13 Estim Creat Clear Calc 99.7 Estimated GFR > 60 Random Glucose 126 H Calcium 8.0 L D Total Bilirubin AST ALT Alkaline Phosphatase Total Protein Albumin Lipase Beta-Hydroxybutyrate Urine Color Urine Appearance Urine pH Ur Specific [place] Urine Protein Urine Glucose (UA) Urine Ketones Urine Blood Urine Nitrite Ur Leukocyte Esterase Urine RBC Urine WBC Ur Squamous Epith Cells Urine Bacteria Hyaline Casts C. difficile Tox B Gene Assessment and Plan (1) Acute dehydration: Status: Acute Plan d1 62yo F with hypothyroidism, HTN presenting with acute vomiting + diarrhea suspected acute gastroenteritis vs food poisoning - IV crystalloid, advance diet as tolerated, GI panel, C diff negative leukocytosis/tachycardia - reactive to dehydration, not septic, conitnue IV fluids hypothyroidism - continue LT4 HTN - atenolol VTE ppx - LMWH dispo - eventual home In my clinical judgment, the patient requires continued inpatient hospitalization for the following reasons: IV fluids Quality Stroke Does the patient have a stroke diagnosis?: No VTE Prior VTE?: No VTE Risk Level:: Medical - moderate - high VTE Device Contraindication: Treatment Not Indicated VTE Drug Contraindication: N/A - Med Ordered
[2023-07-16 12:57] VITALS: TEMP 36.9
[2023-07-16 13:35] LABS: Adenovirus F 40/41 Not Detected (Not Detect.); Astrovirus Not Detected (Not Detect.); Campylobacter Not Detected (Not Detect.); Cryptosporidium Not Detected (Not Detect.); Cyclospora cayetanensis Not Detected (Not Detect.); E. coli EAEC Not Detected (Not Detect.); E. coli EPEC Not Detected (Not Detect.); E. coli ETEC Not Detected (Not Detect.); E. coli STEC Not Detected (Not Detect.); Entamoeba histolytica Not Detected (Not Detect.); Giardia lamblia Not Detected (Not Detect.); Norovirus GI/GII Not Detected (Not Detect.); Plesiomonas shigelloides Not Detected (Not Detect.); Rotavirus A Detected (Not Detect.); Salmonella Not Detected (Not Detect.); Sapovirus Not Detected (Not Detect.); Shigella sp./EIEC Not Detected (Not Detect.); Vibrio Not Detected (Not Detect.); Vibrio Cholerae Not Detected (Not Detect.); Yersinia enterocolitica Not Detected (Not Detect.)
--- NOTE | 2023-07-16 14:43 | MHC.IC ---
Pt positive for Rotavirus. Strict handwashing and surface cleaning with bleach.
[2023-07-16 15:12] VITALS: BP 171/85; PULSE 119; RESP 18; TEMP 38.6; O2SAT 94
[2023-07-16 17:36] VITALS: TEMP 38.1
[2023-07-16 19:28] VITALS: BP 180/98; PULSE 99; RESP 18; TEMP 38.3; O2SAT 92
[2023-07-16] MEDS: Acetaminophen 1,000 MG/100 ML PIGGYBACK 400 MG IV (20:01)
--- NOTE | 2023-07-16 21:42 | PC.NURSE ---
1943 pt's temp 101.4 b/p 180/98.pt not due for tylenol last medicated at 1600. notified of temp and b/p.tylenol 1000mg iv ordered.
[2023-07-16 23:49] VITALS: BP 145/82; PULSE 116; RESP 19; TEMP 37.4; O2SAT 93
[2023-07-17 03:12] VITALS: BP 144/91; PULSE 126; RESP 18; TEMP 37.3; O2SAT 92
[2023-07-17] MEDS: Levothyroxine Sodium 75 MCG TABLET PO (05:53)
[2023-07-17] MEDS: Enoxaparin Sodium 40 MG/0.4 ML SYRINGE SUBCUT (05:53)
[2023-07-17 08:00] VITALS: BP 144/79; PULSE 119; RESP 18; TEMP 38; O2SAT 92
[2023-07-17 08:25] LABS: Anion Gap 14 (12-20); Blood Urea Nitrogen 8 mg/dL (9-16); Calcium 8.1 mg/dL (8.4-10.2); Carbon Dioxide 23 mmol/L (22-29); Chloride 103 mmol/L (96-108); Creatinine Clr Calc Pharmacy 102.8; Estimated Glomerular Filt Rate > 60; Glucose Random 121 mg/dL (60-115); Magnesium 1.7 mg/dL (1.6-2.6); Sodium 137 mmol/L (135-145)
[2023-07-17 08:29] LABS: Potassium 2.8 mmol/L (3.3-5.1)
[2023-07-17] MEDS: Acetaminophen 325 MG TABLET 650 MG PO ×2 (08:47→18:20)
[2023-07-17] MEDS: Lactated Ringers 1,000 ML 100 ML IVCONT ×2 (08:47→17:45)
[2023-07-17] MEDS: Cyanocobalamin (Vitamin B-12) 1,000 MCG TABLET 1000 MCG PO (08:48)
[2023-07-17] MEDS: Cholecalciferol (Vitamin D3) 25 MCG TABLET 50 MCG PO (08:48)
[2023-07-17] MEDS: atenoloL 25 MG TABLET PO (08:48)
--- NOTE | 2023-07-17 08:50 | P.PNIM_ITS ---
Subjective Subjective Date of Service: 07/17/23 Interval History: febrile to 101.4 yesterday at 15:00, currently 100.4 nauseous + still having diarrhea K low at 2.8 feels weak c/o WONG Review of Systems Review of Systems: Yes all other systems are reviewed and are negative Physical Exam 2 Vital Signs: Vital Signs: Last Vital Signs Temp 100.4 F 07/17/23 08:00 Pulse 119 H 07/17/23 08:00 Resp 18 07/17/23 08:00 BP 144/79 H 07/17/23 08:00 Pulse Ox 92 07/17/23 08:00 O2 Del Method Room Air 07/17/23 08:00 BMI result Body Mass Index 36.9 Gen: in no acute distress HEENT: sclera anicteric, moist mucus membranes Neck: supple Lungs: clear to auscultation bilaterally Heart: regular, tachycardic, no murmurs Abd: soft, non-tender, non-distended Ext: no edema Skin: warm/well-perfused Neuro: alert and oriented x3, no focal findings Psych: appropriate affect Objective Data Active Medications Acetaminophen (Acetaminophen 325 Mg Tablet) 650 mg PO Q6H PRN PRN Reason: Pain, Mild (Pain Scale 1-3) Last Admin: 07/16/23 16:01 Dose: 650 mg Documented By: MARIA D Atenolol (Atenolol 25 Mg Tablet) 25 mg PO DAILY COUNT INCLUDES THE [facility]; Protocol Cyanocobalamin (Cyanocobalamin (Vitamin B-12) 1,000 Mcg Tablet) 1,000 mcg PO DAILY COUNT INCLUDES THE [facility] Enoxaparin Sodium (Enoxaparin Sodium 40 Mg/0.4 Ml Syringe) 40 mg SUBCUT DAILY@0600 [facility]CLUDES [facility] Last Admin: 07/17/23 05:53 Dose: 40 mg Documented By: JOSEPHINE Lactated Ringer's (Lr) 1,000 mls @ 100 mls/hr IVCONT .Q10H COUNT INCLUDES THE [facility] Last Admin: 07/16/23 23:24 Dose: 100 mls/hr Documented By: JOSEPHINE Potassium Chloride (Potassium Chloride/H20) 10 meq in 100 mls @ 100 mls/hr IV Q1H COUNT INCLUDES THE [facility] Stop: 07/17/23 10:59 Levothyroxine Sodium (Levothyroxine Sodium 75 Mcg Tablet) 75 mcg PO DAILY@0600 COUNT [facility]CLUDES [facility] Last Admin: 07/17/23 05:53 Dose: 75 mcg Documented By: JOSEPHINE Loperamide HCl (Loperamide Hcl 2 Mg Capsule) 2 mg PO Q4H PRN PRN Reason: Diarrhea Last Admin: 07/16/23 22:56 Dose: 2 mg Documented By: JOSEPHINE Melatonin (Melatonin 3 Mg Tablet) 6 mg PO BEDTIME PRN PRN Reason: Insomnia Ondansetron HCl (Ondansetron Hcl 4 Mg/2 Ml Vial) 4 mg IVPUSH Q8H PRN PRN Reason: Nausea and Vomiting Last Admin: 07/16/23 11:24 Dose: 4 mg Documented By: BERTHA Potassium Chloride (Potassium Chloride Packet 20 Meq Packet) 40 meq PO ONCE ONE Stop: 07/17/23 08:47 Sodium Chloride (0.9 % Sodium Chloride Flush 3 Ml Syringe) 3 ml IVFLUSH QSHIFT COUNT INCLUDES THE [facility] Last Admin: 07/17/23 07:37 Dose: Not Given Documented By: LOBITO Non-Admin Reason: IV Running Vitamin D (Cholecalciferol (Vitamin D3) 25 Mcg Tablet) 50 mcg PO DAILY COUNT INCLUDES THE [facility] Labs 07/16/23 05:07 07/17/23 05:52 Labs: Laboratory Results - last 24 hr 07/16/23 07/17/23 11:22 05:52 Hold Purple Top SEE NOTE Anion Gap 14 Estim Creat Clear Calc 102.8 Estimated GFR > 60 Random Glucose 121 H Calcium 8.1 L Magnesium 1.7 Stl C. cayetanensis PCR Not Detected Stool Rotavirus A PCR Detected A Stl Adenov F 40/41 PCR Not Detected Stool Astrovirus (PCR) Not Detected Stool Campylobacter PCR Not Detected Stool Cryptosporidium PCR Not Detected Stl Sh Tox Pr E STEC PCR Not Detected Stool E coli O157 PCR Not applicable Stl Enterotoxigenic E PCR Not Detected Stool EPEC (PCR) Not Detected Stool EAEC (PCR) Not Detected Stl E. histolytica PCR Not Detected Stool Giardia Lamblia PCR Not Detected Stl P. shigelloides PCR Not Detected Stool Salmonella PCR Not Detected Stool Sapovirus (PCR) Not Detected Stl Shigella/EIEC PCR Not Detected St Y.enterocolitica PCR Not Detected Stool Vibrio (PCR) Not Detected Stl Vibrio cholerae PCR Not Detected Stl Norovirus GI/GII PCR Not Detected Assessment and Plan (1) Acute dehydration: Status: Acute Plan d2 62yo F with hypothyroidism, HTN presenting with acute vomiting + diarrhea found to have rotavirus infection rotavirus gastroenteritis - continue IV LR, APAP prn fever/WONG, clear liquids + bland solids; Cdiff negative hypoK - replete IV/PO, recheck level in AM leukocytosis/tachycardia - reactive to dehydration, not septic, continue IV fluids hypothyroidism - continue LT4 HTN - atenolol VTE ppx - LMWH dispo - eventual home In my clinical judgment, the patient requires continued inpatient hospitalization for the following reasons: IV fluids, IV electrolyte repletion Total time managing care of this patient today: 35 minutes. Quality Stroke Does the patient have a stroke diagnosis?: No VTE Prior VTE?: No VTE Risk Level:: Medical - moderate - high VTE Device Contraindication: Treatment Not Indicated VTE Drug Contraindication: N/A - Med Ordered
[2023-07-17] MEDS: Potassium Chloride Packet 20 MEQ PACKET 40 MEQ PO (09:19)
[2023-07-17] MEDS: Potassium Chloride/H20 10 MEQ/100 ML PIGGYBACK 100 MEQ IV ×2 (09:19→11:00)
[2023-07-17 11:24] VITALS: BP 136/73; PULSE 90; RESP 18; TEMP 37.3; O2SAT 94
[2023-07-17 16:00] VITALS: BP 141/88; PULSE 88; RESP 16; TEMP 37.2; O2SAT 94
[2023-07-17 19:52] VITALS: BP 138/93; PULSE 91; RESP 16; TEMP 37.6; O2SAT 96
[2023-07-17 23:51] VITALS: BP 164/93; PULSE 89; RESP 18; TEMP 37.3; O2SAT 97
[2023-07-17] MEDS: Loperamide HCl 2 MG CAPSULE 4 MG PO (23:57)
[2023-07-18] VITALS (8 sets, daily range): BP systolic 132–147; BP diastolic 62–93; PULSE 68–84; RESP 18–20; TEMP 36.6–37.9; O2SAT 94–96
[2023-07-18] MEDS: Lactated Ringers 1,000 ML 100 ML IVCONT ×2 (02:50→13:29)
[2023-07-18] MEDS: Enoxaparin Sodium 40 MG/0.4 ML SYRINGE SUBCUT (05:39)
[2023-07-18] MEDS: Levothyroxine Sodium 75 MCG TABLET PO (05:40)
[2023-07-18] MEDS: Cholecalciferol (Vitamin D3) 25 MCG TABLET 50 MCG PO (08:14)
[2023-07-18] MEDS: Cyanocobalamin (Vitamin B-12) 1,000 MCG TABLET 1000 MCG PO (08:15)
[2023-07-18] MEDS: atenoloL 25 MG TABLET PO (08:15)
--- NOTE | 2023-07-18 09:27 | HO.PM.IMPN ---
Subjective Subjective Date of Service: 07/18/23 Interval History: feels lightheaded tolerating diet but has some nausea still diarrhea resolved Review of Systems Review of Systems: Yes all other systems are reviewed and are negative Physical Exam Vital Signs: Vital Signs: Last Vital Signs Temp 98.6 F 07/18/23 07:20 Pulse 84 07/18/23 07:20 Resp 18 07/18/23 07:20 BP 147/78 H 07/18/23 07:20 Pulse Ox 94 07/18/23 07:20 O2 Del Method Room Air 07/18/23 07:20 BMI result Body Mass Index 36.9 Gen: in no acute distress HEENT: sclera anicteric, moist mucus membranes Neck: supple Lungs: clear to auscultation bilaterally Heart: regular rate and rhythm, no murmurs Abd: soft, non-tender, non-distended Ext: no edema Skin: warm/well-perfused Neuro: alert and oriented x3, no focal findings Psych: appropriate affect Objective Data Active Medications Acetaminophen (Acetaminophen 325 Mg Tablet) 650 mg PO Q6H PRN PRN Reason: Pain, Mild (Pain Scale 1-3) Last Admin: 07/17/23 18:20 Dose: 650 mg Documented By: LOBITO Atenolol (Atenolol 25 Mg Tablet) 25 mg PO DAILY [facility]; Protocol Last Admin: 07/18/23 08:15 Dose: 25 mg Documented By: LOBITO Cyanocobalamin (Cyanocobalamin (Vitamin B-12) 1,000 Mcg Tablet) 1,000 mcg PO DAILY [facility] Last Admin: 07/18/23 08:15 Dose: 1,000 mcg Documented By: LOBITO Enoxaparin Sodium (Enoxaparin Sodium 40 Mg/0.4 Ml Syringe) 40 mg SUBCUT DAILY@0600 [facility] Last Admin: 07/18/23 05:39 Dose: 40 mg Documented By: JOSEPHINE Lactated Ringer's (Lr) 1,000 mls @ 100 mls/hr IVCONT .Q10H [facility] Last Admin: 07/18/23 02:50 Dose: 100 mls/hr Documented By: JOSEPHINE Levothyroxine Sodium (Levothyroxine Sodium 75 Mcg Tablet) 75 mcg PO DAILY@0600 [facility] Last Admin: 07/18/23 05:40 Dose: 75 mcg Documented By: JOSEPHINE Loperamide HCl (Loperamide Hcl 2 Mg Capsule) 4 mg PO Q4H PRN PRN Reason: Diarrhea Last Admin: 07/17/23 23:57 Dose: 4 mg Documented By: JOSEPHINE Melatonin (Melatonin 3 Mg Tablet) 6 mg PO BEDTIME PRN PRN Reason: Insomnia Ondansetron HCl (Ondansetron Hcl 4 Mg/2 Ml Vial) 4 mg IVPUSH Q8H PRN PRN Reason: Nausea and Vomiting Last Admin: 07/16/23 11:24 Dose: 4 mg Documented By: BERTHA Sodium Chloride (0.9 % Sodium Chloride Flush 3 Ml Syringe) 3 ml IVFLUSH QSHIFT [facility] Last Admin: 07/18/23 07:24 Dose: Not Given Documented By: LOBITO Non-Admin Reason: IV Running Vitamin D (Cholecalciferol (Vitamin D3) 25 Mcg Tablet) 50 mcg PO DAILY [facility] Last Admin: 07/18/23 08:14 Dose: 50 mcg Documented By: LOBITO Labs 07/16/23 05:07 07/17/23 05:52 Labs: Laboratory Results - last 24 hr 07/18/23 06:15 Hold Purple Top SEE NOTE Assessment and Plan (1) Acute dehydration: Status: Acute Plan d3 62yo F with hypothyroidism, HTN presenting with acute vomiting + diarrhea found to have rotavirus infection, developed hypokalemia rotavirus gastroenteritis - diet advanced - prn loperamide - given lightheadedness, continue IV LR and also check orthostatics hypoK - repleted IV/PO, recheck pending leukocytosis/tachycardia - reactive to dehydration, not septic, resolved hypothyroidism - continue LT4 HTN - atenolol VTE ppx - LMWH dispo - eventual home In my clinical judgment, the patient requires continued inpatient hospitalization for the following reasons: IV fluids, lightheadedness Total time managing care of this patient today: 35 minutes. Quality Stroke Does the patient have a stroke diagnosis?: No VTE Prior VTE?: No VTE Risk Level:: Medical - moderate - high VTE Device Contraindication: Treatment Not Indicated VTE Drug Contraindication: N/A - Med Ordered
--- NOTE | 2023-07-18 09:46 | MHC.CM.PN ---
PT REPORTS SHE LIVES WITH HER AND IS INDEPENDENT WITH CARE PT REPORTS SHE IS SUPPOSED TO USE A CANE BUT DOES NOT SHE HAS NO SERVICES PT COMPLETED A HCP TODAY NAMING HER HER AGENT PCP: VIVIAN ISABEL [facility] NOTICE DELIVERED DCP: HOME NO SERVICES VIA PRIVATE TRANSPORT
[2023-07-18 10:00] LABS: Glucose, Whole Blood 107 mg/dL (60-115)
--- NOTE | 2023-07-18 10:22 | PC.NURSE ---
pt ambulating with [employer] from bed to BR with walker. Pt complained of increased lightheadedness and dizziness. Pt immediately sat in chair provided. Vitals taken BP 159/85 P 86 O2 98 on room air. POC checked 107. Dr Masters made aware. Pt feeling better and finished ambulating to bathroom and back to bed with no issues.
[2023-07-18] MEDS: Lactated Ringers 1,000 ML 999 ML IV (10:37)
[2023-07-18 12:42] LABS: Anion Gap 10 (12-20); Blood Urea Nitrogen 8 mg/dL (9-16); Calcium 8.2 mg/dL (8.4-10.2); Carbon Dioxide 23 mmol/L (22-29); Chloride 106 mmol/L (96-108); Creatinine Clr Calc Pharmacy 114.9; Estimated Glomerular Filt Rate > 60; Glucose Random 95 mg/dL (60-115); Potassium 2.9 mmol/L (3.3-5.1); Sodium 136 mmol/L (135-145)
[2023-07-18] MEDS: Potassium Chloride/H20 10 MEQ/100 ML PIGGYBACK 100 MEQ IV ×2 (13:18→14:27)
[2023-07-18] MEDS: Potassium Chloride Packet 20 MEQ PACKET 40 MEQ PO (13:18)
[2023-07-18] MEDS: Loperamide HCl 2 MG CAPSULE 4 MG PO (13:19)
[2023-07-19] VITALS: BP 146/74; PULSE 70; RESP 16; TEMP 36.9; O2SAT 95
[2023-07-19] MEDS: Lactated Ringers 1,000 ML 100 ML IVCONT (03:38)
[2023-07-19 04:00] VITALS: BP 152/85; PULSE 63; RESP 16; TEMP 36.2; O2SAT 96
[2023-07-19 05:59] LABS: Anion Gap 12 (12-20); Blood Urea Nitrogen 6 mg/dL (9-16); Calcium 8.5 mg/dL (8.4-10.2); Carbon Dioxide 24 mmol/L (22-29); Chloride 107 mmol/L (96-108); Creatinine Clr Calc Pharmacy 109.4; Estimated Glomerular Filt Rate > 60; Glucose Random 97 mg/dL (60-115); Magnesium 1.7 mg/dL (1.6-2.6); Potassium 3.1 mmol/L (3.3-5.1); Sodium 140 mmol/L (135-145)
[2023-07-19] MEDS: Levothyroxine Sodium 75 MCG TABLET PO (06:19)
[2023-07-19] MEDS: Enoxaparin Sodium 40 MG/0.4 ML SYRINGE SUBCUT (06:19)
[2023-07-19 07:46] VITALS: BP 147/79; PULSE 72; RESP 16; TEMP 36.7; O2SAT 95
[2023-07-19] MEDS: atenoloL 25 MG TABLET PO (09:08)
[2023-07-19] MEDS: Potassium Chloride Packet 20 MEQ PACKET 40 MEQ PO (09:08)
[2023-07-19] MEDS: Cyanocobalamin (Vitamin B-12) 1,000 MCG TABLET 1000 MCG PO (09:09)
[2023-07-19] MEDS: Cholecalciferol (Vitamin D3) 25 MCG TABLET 50 MCG PO (09:09)
--- NOTE | 2023-07-19 11:13 | MHC.CM.PN ---
EMR reviewed. Per MD rounds patient is medically cleared for dc home self care. to provide transport at noon. MD and RN aware.
--- NOTE | 2023-07-19 11:23 | PM.DS ---
DS: Providers Provider Date of Service: 07/19/23 Date of admission: 07/16/23 02:46 Date of discharge: 07/19/23 Primary care physician: Tamar Bermudez MD DS: Diagnosis Discharge Diagnosis (1) Rotavirus enteritis: Status: Acute (2) Acute dehydration: Status: Acute DS: Summary Hospital Course Hospital Course: 62-year-old female with pertinent history of hypothyroidism, essential hypertension, gastroesophageal reflux disease who presents to the emergency department for evaluation of diarrhea and vomiting. Patient states his symptoms started in the afternoon on the day of presentation. Patient ate [employer] egg muffin, hash brown and orange juice for breakfast followed by hot dog for lunch. Patient did not think the food tasted bad or had gone bad. Around 15:30, she started having loose watery stools. Patient states she had about 10-12 stools since in about 2 episodes of nonbloody emesis. Has generalized abdominal discomfort. She had an episode of food poisoning about 2 months ago but it was not this bad. Patient has not eaten anything due to multiple episodes of vomiting and diarrhea. No fever, chills, chest discomfort, palpitations, shortness of breath, changes in urinary habits. Hospital Course Admitted to general medical floor and volume repletion undertaken. Stool studies came back positive for rotavirus. CT of the abdomen and pelvis demonstrated fluid within much of the colon associated likely with diarrhea. Potassium aggressively repleted both oral and IV. On the day of discharge she now has been tolerating a diet for 24 hours without stooling. She is requesting discharge and is medically acceptable for same. She will be discharged to home with a script for Sandra. She is advised to use a separate bathroom from her ; not share glasses or eating utensils and good handwashing. She will follow up with the PCP next available Time Attestation Discharge Coordination Time (in mins): 35 Quality: Safe Use of Opioids Does Pt have an Active Cancer Diagnosis on the Problem List?: No Quality: Stroke Does the patient have a stroke diagnosis?: No Physical Exam Vital Signs: Vital Signs: Last Vital Signs Temp 98.1 F 07/19/23 07:46 Pulse 72 07/19/23 07:46 Resp 16 07/19/23 07:46 BP 147/79 H 07/19/23 07:46 Pulse Ox 95 07/19/23 07:46 O2 Del Method Room Air 07/19/23 07:46 BMI result Body Mass Index 36.9 Const: Other: Awake alert oriented x3 no acute distress Resp: Other: Clear to auscultation bilaterally no rales rhonchi or wheezes Cardio: Other: No S4; positive S1-S2; no S3 murmurs rubs or gallops GI: Other: Soft nontender nondistended normoactive bowel sounds Extrem: Other: No edema bilaterally DS: Data Data Completed and Pending Labs on day of discharge: Laboratory Results - last 24 hr 07/18/23 07/19/23 06:15 05:32 Hold Purple Top SEE NOTE Sodium 136 140 Potassium 2.9 L* 3.1 L Chloride 106 107 Carbon Dioxide 23 24 Anion Gap 10 L 12 BUN 8 L 6 L Creatinine 0.59 0.62 Estim Creat Clear Calc 114.9 109.4 Estimated GFR > 60 > 60 Random Glucose 95 97 Calcium 8.2 L 8.5 Magnesium 1.7 Discharge Plan Discharge Anticipated Discharge Date/Time: 07/19/23 11:17 Patient Disposition: Home, Self-Care Discharge Diagnosis: Rotavirus enteritis Referrals: Po,Tamar Morrow MD [Primary Care Provider] - 1 Week Jona Nugent MD [Physician] - 07/19/23 (Postmenopausal vaginal bleeding) Discharge Medications: New ondansetron HCl 4 mg tablet 4 mg PO Q6H PRN (Reason: nausea and vomiting) Qty: 20 0RF Continued atenolol 25 mg tablet 25 mg PO DAILY 90 Days Qty: 90 1RF milk thistle 150 mg Capsule 300 mg PO DAILY Rx Instructions: give with meal/snack acetaminophen 650 mg Tablet Extended Release 650 mg PO DAILY PRN (Reason: Pain) levothyroxine 75 mcg tablet 75 mcg PO DAILY@0600 cholecalciferol (vitamin D3) 25 mcg (1,000 unit) capsule 50 mcg PO DAILY cyanocobalamin (vitamin B-12) 1,000 mcg capsule 1,000 mcg PO DAILY Qty: 30 9RF omega-3 fatty acids 1,250 mg capsule 1,250 mg PO DAILY Saccharomyces boulardii [Daily Probiotic (S. boulardii)] 250 mg capsule 5,000 mmu cells PO DAILY Discharge Orders: Discharge Order (Routine); Ordered 07/19/23 Ordered By: Garfield Canales Diet: Advance to usual diet Activity on Discharge: As tolerated Stand Alone Forms: Patient Portal Discharge page Care Plan Goals: Continue all medicines as taken prior to hospitalization Health Concerns: Utilize Zofran 4 mg by mouth every 6-8 hours for breakthrough nausea. Plan of Treatment: She would utilize separate bathroom from your and exercise good handwashing; do not share utensils or glasses for the next week. Follow-up with the PCP next available Assessment: See discharge summary Patient Instructions: Acute Nausea and Vomiting (ED), Acute Diarrhea (ED)
== END 2023-07-19 12:14 | disposition home or self-care (01) ==
LOC: HO.ED 07-16 02:44 → HO.EDOVER 07-16 02:49 → HO.S3 07-16 13:39
PROVIDERS: Family Medicine; Admitting Provider Student in an Organized Health Care Education/Training Program; Emergency Provider Emergency Medicine; PCP Internal Medicine; Visit Provider Hospitalist
DX: K52.9 Noninfective gastroenteritis and colitis, unspecified (principal); A08.0 Rotaviral enteritis; E86.0 Dehydration; R11.2 Nausea with vomiting, unspecified; N95.0 Postmenopausal bleeding; I10 Essential (primary) hypertension; E03.9 Hypothyroidism, unspecified; R00.0 Tachycardia, unspecified; K21.9 Gastro-esophageal reflux disease without esophagitis; D72.829 Elevated white blood cell count, unspecified; E66.9 Obesity, unspecified; Z68.36 Body mass index [BMI] 36.0-36.9, adult
CPT/HCPCS: 36415; 74177; 80048; 80053; 81001; 82010; 82947; 83690; 83735; 85025; 87493; 87507; 93005; 96361; 96365; 96366; 96367; 96372; 96375; 96376; 99221; 99285; J0131; J1650; J2405; J3480; J7120; Q9967

== ENCOUNTER 2023-07-16 02:46 | Outpatient (BNV) | payer BC, SELFPAY | END 2023-07-16 03:15 | PROVIDERS: Admitting Provider Student in an Organized Health Care Education/Training Program; Emergency Provider Emergency Medicine; PCP Internal Medicine; Visit Provider Internal Medicine Cardiovascular Disease | DX: R94.31 Abnormal electrocardiogram [ECG] [EKG] (principal) | CPT/HCPCS: 93010 ==

== ENCOUNTER → 2023-07-16 02:46 | Outpatient (BNV) | payer BC, SELFPAY | PROVIDERS: Admitting Provider Student in an Organized Health Care Education/Training Program; Emergency Provider Emergency Medicine; PCP Internal Medicine; Visit Provider Student in an Organized Health Care Education/Training Program | DX: A08.0 Rotaviral enteritis (principal); E86.0 Dehydration | CPT/HCPCS: 99222; 99232; 99239; 99499 ==

== ENCOUNTER 2023-08-12 10:17 | Outpatient (REF) | payer BC, SELFPAY ==
[2023-08-12 14:16] LABS: Alanine Aminotransferase 29 U/L (0-31); Albumin Level 4.1 g/dL (3.5-5.0); Alkaline Phosphatase 70 U/L (39-117); Anion Gap 10 (12-20); Aspartate Amino Transferase 21 U/L (5-31); Bilirubin Total 0.6 mg/dL (0.0-1.0); Blood Urea Nitrogen 12 mg/dL (9-16); Calcium 9.3 mg/dL (8.4-10.2); Carbon Dioxide 26 mmol/L (22-29); Chloride 108 mmol/L (96-108); Estimated Glomerular Filt Rate > 60; Free T4 (Free Thyroxine) 1.03 ng/dL (0.71-1.85); Glucose Random 97 mg/dL (60-115); Potassium 4.4 mmol/L (3.3-5.1); Sodium 140 mmol/L (135-145); Thyroid Stimulating Hormone 2.05 uIU/mL (0.32-4.0); Total Protein 6.9 g/dL (6.5-8.0)
== END 2023-08-12 10:18 | disposition home or self-care (01) ==
LOC: HO.HMGCLDS 10:17
PROVIDERS: PCP Internal Medicine; Visit Provider Internal Medicine
DX: E03.9 Hypothyroidism, unspecified (principal); N28.1 Cyst of kidney, acquired
CPT/HCPCS: 36415; 80053; 84439; 84443

== ENCOUNTER 2023-08-13 10:47 | Outpatient (AMB) | payer BC, SELFPAY ==
--- NOTE | 2023-08-13 11:06 | MHC.PC.OV ---
Vital Signs 08/13/23 11:09 Height 5 ft 4 in Weight 210 lb 8 oz BMI 36.1 BP 130/78 Blood Pressure Location Lt brachial Position Sitting Pulse 82 Pulse Source Pulse Oximeter Pulse Oximetry (%) 95 Oxygen Delivery Method Room Air Intake Visit [place] [facility] [place] Note: Patient is here for hospital discharge follow up. Patient was [place] [facility] [place]. 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 Last seen in June 2023. Patient's colonoscopy is up-to-date June 2020. Review of the notes was recently in the hospital for rotavirus enteritis with dehydration had vomiting and diarrhea. [facility] Medical History Chronic calculous cholecystitis Cholelithiasis Pneumonia due to COVID-19 virus Viral pneumonia COVID-19 Annual physical exam Gastroenteritis Low back pain Impacted cerumen of left ear Knee pain, right Shoulder pain, bilateral Mammogram declined Fatty liver GERD (gastroesophageal reflux disease) Hypercholesterolemia Vitamin B12 deficiency Knee osteoarthritis PUD (peptic ulcer disease) Mammogram declined Syncope Hypothyroid Hypertension Obesity Surgical History Hx of toe surgery Hx of colonoscopy History of D&C History of surgery Family History Father No problems noted. Mother No problems noted. Paternal Uncle Lung cancer Esophageal cancer Throat cancer Maternal Uncle Myocardial infarction Paternal Aunt Lung cancer Maternal Aunt CVA (cerebral vascular accident) Paternal Grandmother Ovarian cancer Social History Household Members: Spouse Housing: House Are you a primary housekeeper caregiver to a significant other at home: No Do you presently have visiting nurse or other home services: No Alcohol intake: never Comment: Does not use cane all the time Patient Tobacco Use Status: Former Tobacco user Quit Date: 45 years ago Tobacco use type: Cigarette Years Smoked: 0.5 e-Cigarette/Vaping Use: Never Used Second Hand Smoke Exposure: No service: No Current occupational status: disabled Cognitive needs: No Hearing needs: No Vision needs: Yes Questionnaire PHQ-9 Over the last 2 weeks, how often have you been bothered by any of the following problems? 1. Little interest or pleasure in doing things: not at all 2. Feeling down, depressed, or hopeless: not at all 3. Trouble falling or staying asleep, or sleeping too much: not at all 4. Feeling tired or having little energy: not at all 5. Poor appetite or overeating: not at all 6. Feeling bad about yourself - or that you are a failure or have let yourself or your family down: not at all 7. Trouble concentrating on things, such as reading the newspaper or watching television: not at all 8. Moving or speaking so slowly that other people could have noticed. Or the opposite - being so fidgety or restless that you have been moving around a lot more than usual: not at all 9. Thoughts that you would be better off or of hurting yourself in some way: not at all Total score: 0 Depression Screening Interpretation: Negative Depression Screening Done: Yes Source: Developed by Drs. Rupert Marks, Bobo Lambert and colleagues, with an educational oswald from [employer] 8. Thrive Questionnaire Date Thrive assessed: 07/17/23 BLAYNE-7 AMB Questionnaire BLAYNE-7 Date BLAYNE - 7 assessed: 07/08/23 Source: Developed by Luz Felder Kurt Kroenke and colleagues, with an educational oswald from [employer] 8. Physical exam (Primary Care) Vital Signs: Last Vital Signs Pulse 82 08/13/23 11:09 BP 130/78 08/13/23 11:09 Pulse Ox 95 08/13/23 11:09 Oxygen Delivery Method Room Air 08/13/23 11:09 BMI result Body Mass Index 36.1 Tobacco/Smoking Status: Tobacco use Status Tobacco use date assessed 08/13/23 08/13/23 11:18 Patient Tobacco Use Status Former Tobacco user 08/13/23 11:18 Tobacco use type Cigarette 08/13/23 11:18 e-Cigarette/Vaping Use Never Used 08/13/23 11:18 PHQ-9: PHQ-9 Score PHQ-9: Total score 0 08/13/23 11:18 Depression Screening Interpretation: Negative Thrive Assessment: Date of Thrive Assessment Date Thrive assessed 07/17/23 08/13/23 11:18 Const General: alert; No acute distress Eyes Conjunctivae: conjunctivae normal Resp Auscultation: clear to auscultation bilaterally Cardio Rate: regular rate Rhythm: regular rhythm GI Inspection: Yes normal to inspection Extrem General: Yes normal to inspection and No edema Assessment and Plan Assessment & Plan (1) Rotavirus enteritis: Code(s): A08.0 - Rotaviral enteritis Plan: Resolved well hydrated (2) GERD (gastroesophageal reflux disease): Code(s): K21.9 - Gastro-esophageal reflux disease without esophagitis Plan: Avoid the foods that causes that usually spicy foods, tomato products, juices, coffee, soda and foods that your sensitive to. After eating do not lie down, allow 3-4 hours before in lie down. And keep the head of bed above 30 degrees to avoid the acid from going up. (3) Hypertension: Code(s): I10 - Essential (primary) hypertension Qualifiers: Hypertension type: essential hypertension Qualified Code(s): I10 - Essential (primary) hypertension Plan: Continue with blood pressure medication. Decrease salt intake and exercise presently on atenolol only (4) Hypothyroid: Code(s): E03.9 - Hypothyroidism, unspecified Qualifiers: Hypothyroidism type: acquired Qualified Code(s): E03.9 - Hypothyroidism, unspecified Plan: Continue with thyroid medication (5) Vaginal bleeding: Code(s): N93.9 - Abnormal uterine and vaginal bleeding, unspecified Plan: will be seeing obgyn nurse 09/07/2023 Coding Level of Care Code Est Pt Level 4 (92486) Diagnoses Rotavirus enteritis A08.0 GERD (gastroesophageal reflux disease) K21.9 Essential hypertension I10 Hypertension type: essential hypertension Acquired hypothyroidism E03.9 Hypothyroidism type: acquired Vaginal bleeding N93.9
[2023-08-13 11:09] VITALS: BP 130/78; PULSE 82; O2SAT 95; BMI 36.1
== END 2023-08-13 11:53 | disposition home or self-care (01) ==
PROVIDERS: PCP Internal Medicine; Visit Provider Internal Medicine
DX: A08.0 Rotaviral enteritis (principal); K21.9 Gastro-esophageal reflux disease without esophagitis; I10 Essential (primary) hypertension; E03.9 Hypothyroidism, unspecified; N93.9 Abnormal uterine and vaginal bleeding, unspecified
CPT/HCPCS: 99214

== ENCOUNTER 2023-09-07 13:35 | Outpatient (AMB) | payer BC, SELFPAY ==
--- NOTE | 2023-09-07 13:58 | MHC.OFFVIS ---
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 The patient gives history of having AD and C 3-1/2 years ago at [facility] with a negative pathology according to her, the record is not available. Last co testing was many years [facility] Medical History Abnormal vaginal bleeding in postmenopausal patient Chronic calculous cholecystitis Cholelithiasis Pneumonia due to COVID-19 virus Viral pneumonia COVID-19 Annual physical exam Gastroenteritis Low back pain Impacted cerumen of left ear Knee pain, right Shoulder pain, bilateral Mammogram declined Fatty liver GERD (gastroesophageal reflux disease) Hypercholesterolemia Vitamin B12 deficiency Knee osteoarthritis PUD (peptic ulcer disease) Mammogram declined Syncope Hypothyroid Hypertension Obesity Surgical History Hx of toe surgery Hx of colonoscopy History of D&C History of surgery Family History Father No problems noted. Mother No problems noted. Paternal Uncle Lung cancer Esophageal cancer Throat cancer Maternal Uncle Myocardial infarction Paternal Aunt Lung cancer Maternal Aunt CVA (cerebral vascular accident) Paternal Grandmother Ovarian cancer Social History Household Members: Spouse Housing: House Are you a primary transitional care nurse to a significant other at home: No Do you presently have visiting nurse or other home services: No Alcohol intake: never Comment: Does not use cane all the time Patient Tobacco Use Status: Former Tobacco user Quit Date: 45 years ago Tobacco use type: Cigarette Years Smoked: 0.5 e-Cigarette/Vaping Use: Never Used Second Hand Smoke Exposure: No service: No Current occupational status: disabled Cognitive needs: No Hearing needs: No Vision needs: Yes Review of Systems Const All systems reviewed & are unremarkable except as noted in HPI and below Physical Exam Vital Signs: Last Vital Signs BP 124/70 09/07/23 14:02 BMI result Body Mass Index 35.9 General: Yes no CVA tenderness External Female Exam: normal external appearance and normal appearance of the urethra Speculum Exam - Vagina: normal appearance of the vagina, normal palpation, no lesions and no masses Speculum Exam - Cervix: normal appearance of the cervix, normal palpation, no lesions, no masses and nontender Bimanual exam- vagina & uterus: normal bimanual exam, normal palpation, uterine size normal, normal palpation, uterine shape normal, No Cervical tenderness present and non-tender Bimanual Exam- Adnexa, other: normal adnexae Back/Spine/Pelvis Back: no CVA tenderness Assessment & Plan Assessment & Plan (1) Postmenopausal bleeding: Code(s): N95.0 - Postmenopausal bleeding Category: Medical Plan: Discussed with the patient the differential diagnosis of post menopausal bleeding with normal pelvic exam including but not limited to, endometrial hyperplasia, cancer, polyps and other causes; co testing done, recommended ultrasound to measure the endometrial stripe; discussed with the patient that if the endometrial thickness is 4 mm or less the negative predictive value of endometrial pathology is 99%, otherwise If endometrial thickness is more than 4 mm will proceed with endometrial sampling versus hysteroscopy D&C polypectomy depending on the ultrasound findings. Instructed the patient to schedule an ultrasound follow-up appointment in 2 weeks. All questions answered, the patient verbalized understanding and agreed with the plan. Orders: Orders Pap Smear Today N95.0 - Postmenopausal bleeding US pelvic and transvaginal Today N95.0 - Postmenopausal bleeding Coding Level of Care Code New Pt Level 3 (35048) Diagnoses Postmenopausal bleeding N95.0
[2023-09-07 14:02] VITALS: BP 124/70; BMI 35.9
== END 2023-09-07 15:20 | disposition home or self-care (01) ==
PROVIDERS: PCP Internal Medicine; Visit Provider Obstetrics & Gynecology
DX: N95.0 Postmenopausal bleeding (principal)
CPT/HCPCS: 99203

== ENCOUNTER 2023-09-07 13:35 | Outpatient (REF) | payer BC, SELFPAY ==
[2023-09-15 22:47] LABS: HPV mRNA E6/E7 rflx Not Detected (Not Detected)
== END 2023-09-07 13:36 | disposition home or self-care (01) ==
LOC: HO.LNP 13:35
PROVIDERS: PCP Internal Medicine; Visit Provider Obstetrics & Gynecology
DX: Z12.4 Encounter for screening for malignant neoplasm of cervix (principal); Z11.51 Encounter for screening for human papillomavirus (HPV); N95.0 Postmenopausal bleeding
CPT/HCPCS: 87624; 88142

== ENCOUNTER 2023-09-15 12:02 | Outpatient (REF) | payer BC, SELFPAY ==
--- NOTE | ~2023-09-15 | US_ITS ---
EXAMINATION: US PELVIS CLINICAL INFORMATION: Postmenopausal bleeding. COMPARISON: CT abdomen and pelvis of 11/27/2016. TECHNIQUE: Ultrasound of the pelvis is performed using both transabdominal and transvaginal transducers along with Doppler. Transvaginal imaging is performed due to inadequate visualization transabdominally. FINDINGS: Uterus appears anteverted and retroverted with a measurement of 10.3 x 4.7 x 6.0 cm. The uterus is heterogeneous in echotexture. Endometrial thickness is 12 mm. Right ovary not visualized. Limited visualization due to bowel gas. No significant free fluid. Right ovary measures 4.0 x 3.4 x 3.2 cm, volume 22.8 mL and visualization is limited. Left ovarian 3.4 x 2.6 x 2.9 cm complex cyst with low-level internal echoes and thin septations was not identified on the prior CT scan. US/US pelvic and transvaginal IMPRESSION: 1. Endometrial thickness is 12 mm. Gynecologic consultation and possible biopsy recommended. 2. Left ovarian 3.4 cm complex cyst with low-level internal echoes and septations was not identified on the prior CT scan. Gynecologic consultation recommended to determine further management including possible additional imaging. Recommend follow-up ultrasound in 6-8 weeks. 3. Right ovary not visualized. Limited visualization due to bowel gas. 4. No significant free fluid.
== END 2023-09-15 12:03 | disposition home or self-care (01) ==
LOC: HO.US 12:02
PROVIDERS: PCP Internal Medicine; Visit Provider Obstetrics & Gynecology
DX: N95.0 Postmenopausal bleeding (principal)
CPT/HCPCS: 76830; 76856

== ENCOUNTER 2023-09-20 09:50 | Outpatient (AMB) | payer BC, SELFPAY ==
[2023-09-20 09:51] VITALS: BP 124/82; BMI 36.3
--- NOTE | 2023-09-20 09:51 | A.OFFVIS_ITS ---
Vital Signs 09/20/23 09:51 Height 5 ft 4 in Weight 211 lb 8 oz BMI 36.3 BP 124/82 Blood Pressure Location Lt brachial Position Sitting Intake Visit Reasons: EMB/ US results Allergies metoprolol Allergy (Severe, Verified 09/20/23 09:54) Anaphylaxis HPI Comments Details: Presenting for follow-up ultrasound regarding postmenopausal bleeding. Ultrasound report is still pending, unofficial review of the ultrasound showed 12 mm endometrial thickness PFSH Medical History Abnormal vaginal bleeding in postmenopausal patient Chronic calculous cholecystitis Cholelithiasis Pneumonia due to COVID-19 virus Viral pneumonia COVID-19 Annual physical exam Gastroenteritis Low back pain Impacted cerumen of left ear Knee pain, right Shoulder pain, bilateral Mammogram declined Fatty liver GERD (gastroesophageal reflux disease) Hypercholesterolemia Vitamin B12 deficiency Knee osteoarthritis PUD (peptic ulcer disease) Mammogram declined Syncope Hypothyroid Hypertension Obesity Surgical History Hx of toe surgery Hx of colonoscopy History of D&C History of surgery Family History Father No problems noted. Mother No problems noted. Paternal Uncle Lung cancer Esophageal cancer Throat cancer Maternal Uncle Myocardial infarction Paternal Aunt Lung cancer Maternal Aunt CVA (cerebral vascular accident) Paternal Grandmother Ovarian cancer Social History Household Members: Spouse Housing: House Are you a primary human services care specialist to a significant other at home: No Do you presently have visiting nurse or other home services: No Alcohol intake: never Comment: Does not use cane all the time Patient Tobacco Use Status: Former Tobacco user Tobacco use type: Cigarette Years Smoked: 0.5 e-Cigarette/Vaping Use: Never Used Second Hand Smoke Exposure: No service: No Current occupational status: disabled Cognitive needs: No Hearing needs: No Vision needs: Yes Female Reproductive History Menstrual Menopause type: natural Review of Systems Const All systems reviewed & are unremarkable except as noted in HPI and below Reports as per HPI and Reports no additional complaints GI Reports no additional complaints Reports no additional complaints Physical Exam Vital Signs: Last Vital Signs BP 124/82 09/20/23 09:51 BMI result Body Mass Index 36.3 Office Procedures Endometrial Biopsy Details: The patient was counseled regarding the indication and benefits of endometrial sampling to rule out endometrial pathology including not limited to endometrial hyperplasia or endometrial cancer and others; The alternatives (Either do nothing vs. hysteroscopy D&C) & the risks were discussed with the patient including but not limited: pain, uterine perforation, bleeding, infection, possible injury to bladder, bowel, ureter, possible need for blood transfusion with all its possible risks. The patient verbalized understanding all questions answered and signed consent. The patient was placed into the dorsal lithotomy position; a speculum was inserted in the vagina. Using aseptic technique for the procedure, the cervix was cleansed with Betadine. The anterior lip of the cervix was grasped with a single tooth tenaculum. The uterus was sounded to 7 cm with a 4 mm Pipelle was used. Tissues samples were obtained and placed in formalin, in a patient labeled container and sent to the pathology department. At the end of the procedure, there was minimal bleeding noted The patient tolerated the procedure well and was discharged in good condition with the following instructions: Nothing in the vagina until the bleeding stops. No sex until the bleeding stops, to call if any of the following occurs: fever (>100.4), flu-like symptoms, abdominal pain, heavy bleeding, four smelling vaginal discharge. The patient was instructed to schedule a Follow up appointment in 2 weeks to discuss pathology results of the biopsy and treatment options. This note was generated with a voice recognition program. Some errors may have been overlooked during the review of this note. Sometimes these errors may affect the content or meaning of a given sentence. [id number] Biopsy Assessment & Plan Assessment & Plan (1) Postmenopausal bleeding: Code(s): N95.0 - Postmenopausal bleeding Category: Medical Plan: Discussed with the patient the pelvic ultrasound findings, the endometrial stripe thickenss measured by ultrasound was more than 4mm. The negative predictive value, positive predictive value, Sensitivity, specificity of using ultrasound measurement of endometrial stripe to detecting endometrial pathology including hyperplasia , polyp or cancer were discussed with the patient. Recommended to the patient that the next step is an endometrial sampling via hysteroscopy D&C possible polypectomy versus endometrial biopsy to r/o endometrial pathology including hyperplasia or cancer. All the pros and cons risks and benefits of each approach were discussed with the patient, endometrial biopsy being less invasive, office procedure with less sensitivity and inability diagnose a polyp and removal versus hysteroscopy done under anesthesia more invasive more sensitive to endometrial cancer and possibility of diagnosing and endometrial polyp with the possibility of polypectomy. All questions were answered pt verbalized understanding and decided to proceed with endometrial biopsy. EMB done, see procedure note Orders: Orders AMB Endometrial Biopsy Today N95.0 - Postmenopausal bleeding Coding Level of Care Code Procedure Only Diagnoses Postmenopausal bleeding N95.0 CPT Codes Endometrial Biopsy - CPT: 88975-Szchfyoryor Biopsy ([id number])
== END 2023-09-20 10:40 | disposition home or self-care (01) ==
LOC: HO.HWS 09:50
PROVIDERS: PCP Internal Medicine; Visit Provider Obstetrics & Gynecology
DX: N95.0 Postmenopausal bleeding (principal)
CPT/HCPCS: 58100

== ENCOUNTER 2023-09-20 09:50 | Outpatient (REF) | payer BC, SELFPAY | END 2023-09-20 09:51 | disposition home or self-care (01) | LOC: HO.LNP 09:50 | PROVIDERS: PCP Internal Medicine; Visit Provider Obstetrics & Gynecology | DX: N95.0 Postmenopausal bleeding (principal) | CPT/HCPCS: 58100; 88305 ==

== ENCOUNTER 2023-09-22 12:15 | Outpatient (AMB) | payer BC, SELFPAY ==
--- NOTE | 2023-09-22 12:20 | MHC.OFFVIS ---
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 The patient has no complaints, no vaginal bleeding, no feverishness chills or abdominal pain. The endometrial biopsy pathology report showed the following: Fragments and strips of weakly proliferative endometrium with stromal breakdown; negative for atypia, hyperplasia or malignancy. [facility] Medical History Abnormal vaginal bleeding in postmenopausal patient Chronic calculous cholecystitis Cholelithiasis Pneumonia due to COVID-19 virus Viral pneumonia COVID-19 Annual physical exam Gastroenteritis Low back pain Impacted cerumen of left ear Knee pain, right Shoulder pain, bilateral Mammogram declined Fatty liver GERD (gastroesophageal reflux disease) Hypercholesterolemia Vitamin B12 deficiency Knee osteoarthritis PUD (peptic ulcer disease) Mammogram declined Syncope Hypothyroid Hypertension Obesity Surgical History Hx of toe surgery Hx of colonoscopy History of D&C History of surgery Family History Father No problems noted. Mother No problems noted. Paternal Uncle Lung cancer Esophageal cancer Throat cancer Maternal Uncle Myocardial infarction Paternal Aunt Lung cancer Maternal Aunt CVA (cerebral vascular accident) Paternal Grandmother Ovarian cancer Social History Household Members: Spouse Housing: House Are you a primary director long term care to a significant other at home: No Do you presently have visiting nurse or other home services: No Alcohol intake: never Comment: Does not use cane all the time Patient Tobacco Use Status: Former Tobacco user Tobacco use type: Cigarette Years Smoked: 0.5 e-Cigarette/Vaping Use: Never Used Second Hand Smoke Exposure: No service: No Current occupational status: disabled Cognitive needs: No Hearing needs: No Vision needs: Yes Review of Systems Const All systems reviewed & are unremarkable except as noted in HPI and below Reports as per HPI and Reports no additional complaints GI Reports no additional complaints Reports no additional complaints Physical Exam Vital Signs: Last Vital Signs BP 132/86 09/22/23 12:28 BMI result Body Mass Index 35.9 Assessment & Plan Assessment & Plan (1) Postmenopausal bleeding: Comment: Proliferative endometrium Code(s): N95.0 - Postmenopausal bleeding Category: Medical Plan: Discussed with the patient the results of the pathology of the endometrial scrapings showing proliferative endometrium. Discussed with the patient the sensitivity, specificity, positive and negative predictive value, of endometrial biopsy in detecting endometrial pathology including but not limited to endometrial hyperplasia, cancer and other pathology; in addition discussed the patient the pathology of the endometrium in post menopause is associated with an increase in the risk of endometrial hyperplasia and malignancy in patient with preferred of endometrial pathology in menopause. Recommended to the patient progesterone treatment , levo norgestrel IUD for p.o. progestins in addition to repeat endometrial biopsy every 3 months for a year. All pros and cons, risks and benefits of each were discussed with the patient. The patient decided to proceed with Mirena IUD. so a more detailed discussion about it was conducted including mechanism of action, risks (uterine perforation, infection, injury to bladder, bowel, displacement, increase in the risk of breast cancer and others) benefits (decrease the risk of future endometrial hyperplasia and carcinoma of the endometrium ...). GC/CT will be taken next visit and the patient was instructed to to schedule Mirena IUD insertion dorcas and to schedule her next screening mammogram dorcas; in addition , recommended repeat endometrial biopsy every 3 months for 1 year. Instructed the patient to call in case is vaginal bleeding bleeding recurs, schedule endometrial biopsy in 3 months and IUD insertion within week All questions answered and the patient verbalized understanding and agreed with the plan. Orders: Orders MM tomosynthesis screening BI Today Z12.31 - Encounter for screening mammogram for malignant neoplasm of breast Coding Level of Care Code Est Pt Level 3 (62416) Diagnoses Postmenopausal bleeding N95.0
[2023-09-22 12:28] VITALS: BP 132/86; BMI 35.9
== END 2023-09-22 13:46 | disposition home or self-care (01) ==
LOC: HO.HWS 12:15
PROVIDERS: PCP Internal Medicine; Visit Provider Obstetrics & Gynecology
DX: N95.0 Postmenopausal bleeding (principal)
CPT/HCPCS: 99213

== ENCOUNTER → 2023-09-22 12:15 | Outpatient (BNVA) | payer BC, SELFPAY | PROVIDERS: PCP Internal Medicine; Visit Provider Obstetrics & Gynecology ==

== ENCOUNTER 2023-09-30 10:25 | Outpatient (REF) | payer BC, SELFPAY ==
[2023-10-01 09:08] LABS: CA-125 5 U/mL (<35); Carbohydrate Antigen 19-9 7 U/mL (<34)
== END 2023-09-30 10:26 | disposition home or self-care (01) ==
LOC: HO.LAB 10:25
PROVIDERS: PCP Internal Medicine; Visit Provider Obstetrics & Gynecology
DX: N83.299 Other ovarian cyst, unspecified side (principal)
CPT/HCPCS: 36415; 82378; 86301; 86304

== ENCOUNTER 2023-11-10 14:30 | Outpatient (AMB) | payer BC, SELFPAY ==
--- NOTE | 2023-11-10 14:30 | MHC.PC.OV ---
Vital Signs 11/10/23 14:32 Height 5 ft 4 in Weight 208 lb 0.8 oz BMI 35.7 BP 130/88 Blood Pressure Location Lt brachial Position Sitting Pulse 80 Pulse Source Pulse Oximeter Pulse Oximetry (%) 98 Oxygen Delivery Method Room Air Intake Visit Reasons: 11/25 Gynecologic Surgery Intake Note: Patient is here for a Pre-op for Post Menopausal Bleeding scheduled with Radha Cristina on 11/26/2023. Allergies metoprolol Allergy (Severe, Verified 11/10/23 14:50) Anaphylaxis Medication List - Last Reconciled 11/10/23 by Mitra Gunn PA-C acetaminophen ER 650 mg PO DAILY PRN atenolol 25 mg PO DAILY 90 days cholecalciferol (vitamin D3) 50 mcg PO DAILY cyanocobalamin (vitamin B-12) 1,000 mcg PO DAILY levothyroxine 75 mcg PO DAILY@0600 milk thistle 300 mg PO DAILY omega-3 fatty acids 1,250 mg PO DAILY [puravive weight loss PO .td] Saccharomyces boulardii (Daily Probiotic (S. boulardii)) 5,000 mmu cells PO DAILY Tobacco use date assessed: 08/13/23 Dental Screening Dental Screen Date: 07/08/23 HPI 11/25 Gynecologic Surgery HPI Details 62-year-old female with past medical history of hypertension, hypothyroid, hypercholesterolemia, GERD, fatty liver, peptic ulcer disease, and obstructive sleep apnea last seen by Dr. Bermudez 08/13/2023 coming in for preop appointment. In review of the notes patient was seen by [facility] gynecology after endometrial biopsy which showed fragment and strips of weakly proliferative endometrium with stromal breakdown; negative for atypia, hyperplasia or malignancy. 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 Patient was seen by primary Gynecology Oncology 10/08/2023 who recommended hysteroscopy with dilation and curettage with consideration of progestin. They also discussed further treatment of pelvic mass and recommended ultrasound in 3 months to establish stability. No history of CVA, CHF or DC. Patient is not a diabetic. She has had anesthesia in the past with no complications. Hypertension: Blood pressure is at goal today 130/88 [facility] Medical History (Updated 11/10/23 @ 15:01 by Mitra Gunn PA-C) Abnormal vaginal bleeding in postmenopausal patient Chronic calculous cholecystitis Cholelithiasis Pneumonia due to COVID-19 virus Viral pneumonia COVID-19 Annual physical exam Gastroenteritis Low back pain Impacted cerumen of left ear Knee pain, right Shoulder pain, bilateral Mammogram declined Fatty liver GERD (gastroesophageal reflux disease) Hypercholesterolemia Vitamin B12 deficiency Knee osteoarthritis PUD (peptic ulcer disease) Mammogram declined Syncope Hypothyroid Hypertension Obesity Surgical History (Updated 11/10/23 @ 14:56 by Mitra Gunn PA-C) History of cholecystectomy Hx of toe surgery Hx of colonoscopy History of D&C History of surgery Family History Father No problems noted. Mother No problems noted. Paternal Uncle Lung cancer Esophageal cancer Throat cancer Maternal Uncle Myocardial infarction Paternal Aunt Lung cancer Maternal Aunt CVA (cerebral vascular accident) Paternal Grandmother Ovarian cancer Social History Household Members: Spouse Housing: House Are you a primary dog day care attendant to a significant other at home: No Do you presently have visiting nurse or other home services: No Alcohol intake: never Comment: Does not use cane all the time Patient Tobacco Use Status: Former Tobacco user Tobacco use type: Cigarette Years Smoked: 0.5 e-Cigarette/Vaping Use: Never Used Second Hand Smoke Exposure: No service: No Current occupational status: disabled Cognitive needs: No Hearing needs: No Vision needs: Yes Questionnaire Thrive Questionnaire Date Thrive assessed: 07/17/23 AUDIT C Alcohol Use Questionnaire (AUDIT-C) 1. How often do you have a drink containing alcohol?: Never 2. How many drinks containing alcohol do you have on a typical day when you are drinking?: 1 or 2 3. How often do you have six or more drinks on one occasion?: Never Total Score: 0 Score Reviewed/Action Taken: No BLAYNE-7 AMB Questionnaire BLAYNE-7 Date BLAYNE - 7 assessed: 07/08/23 Source: Developed by Drs. Rupert Marks, Luz La, Bobo Chacon and colleagues, with an educational oswald from [employer] Review of Systems Const Denies body aches, Denies fatigue, Denies fever(s), Denies frequent falls, Denies headache(s) and Denies weakness Eyes Reports no additional complaints and Denies change in vision ENT Denies dysphagia, Denies dizziness, Denies facial pain, Denies headache(s), Denies nasal congestion and Denies odynophagia Card Denies chest pain, Denies syncope, Denies irregular heart rhythm, Denies leg edema, Denies lightheadedness and Denies dyspnea Resp Denies cough and Denies dyspnea GI Denies abdominal pain, Denies constipation, Denies dysphagia, Denies dyspepsia, Denies diarrhea, Denies nausea, Denies odynophagia and Denies vomiting Denies urinary frequency, Denies dysuria, Denies urinary hesitancy and Denies urinary urgency Musc Denies back pain and Reports myalgias Skin/Breast Reports system reviewed and no additional complaints, except as documented Neuro Denies dizziness, Denies syncope, Denies frequent falls, Denies headache(s) and Denies weakness Psych Reports no additional complaints Endo Denies fatigue Physical exam (Primary Care) Vital Signs: Oxygen Delivery Method Room Air 11/10/23 14:32 BMI result Body Mass Index 35.7 Tobacco/Smoking Status: Tobacco use Status Tobacco use date assessed 08/13/23 11/10/23 14:31 Patient Tobacco Use Status Former Tobacco user 11/10/23 14:31 Tobacco use type Cigarette 11/10/23 14:31 e-Cigarette/Vaping Use Never Used 11/10/23 14:31 Thrive Assessment: Date of Thrive Assessment Date Thrive assessed 07/17/23 11/10/23 14:31 Const General: cooperative, healthy appearing, comfortable and no acute distress Orientation/consciousness: patient oriented x3 [facility] Head: Yes normocephalic Ears: hearing grossly normal bilaterally, external ears normal, TM's normal bilaterally and EAC's normal General nose exam: Normal external nose present Face and sinus: Yes normal facial exam and Yes sinuses nontender Mouth: Normal oral and palatal mucosa present and tongue normal Eyes General: appearance normal, both eyes and all related structures Conjunctivae: conjunctivae normal Pupils: Equal, round and reactive pupils present EOM: EOMs intact bilaterally and No Nystagmus present Neck Neck: Yes normal visual inspection, Yes full ROM and Yes no lymphadenopathy Chest Chest palpation & inspection: normal inspection of the chest Resp Effort & Inspection: normal respiratory effort Auscultation: clear to auscultation bilaterally, no crackles, no rales, no rhonchi, no wheezes and breath sounds present Cardio Rate: regular rate Rhythm: regular rhythm Peripheral pulses: dorsalis pedis present GI Inspection: Yes normal to inspection and No Abdominal wall edema Palpation (GI): Soft to palpation, not firm and nontender Rectal Exam - Female: deferred Skin General skin exam: no rashes or lesions noted Neuro General: patient oriented x3 Cranial nerves: Yes Equal, round and reactive pupils present, Yes Midline tongue present and No Nystagmus present Gait exam (Neuro): Normal gait present Extrem General: Yes normal to inspection, Yes full ROM, No no pedal edema and No edema Psych Speech and movement: Normal speech and movement present Affect: normal affect Insight: Good insight present (Psych) Judgement: Good judgement present (Psych) Assessment and Plan Assessment & Plan (1) Pre-op examination: Code(s): Z01.818 - Encounter for other preprocedural examination Plan: Updated CBC and CMP have been ordered. Patient is unsure if ECG is required for preoperative clearance, ECG was ordered and patient will complete after talking with surgeon. Patient is not taking any NSAIDs, blood thinners, or diabetic medications at this time. Instructed patient to continue taking medications as prescribed however on day of surgery only atenolol should be taken prior to surgery and other medications may be held until after the procedure. Do not take any ibuprofen, naproxen, or aspirin 1 week prior to your procedure. Comorbidities are well managed at this time. Patient does not use CPAP for sleep apnea and denies shortness of breath at night. Hypertension is at goal on atenolol. Regarding preop clearance, the patient is at moderate risk for proposed surgery due to age.? Reviewed with the patient that no surgery is completely free of risk and that this examination is to assist the surgeon in reviewing informed consent. Plan This note was constructed using voice recognition software. While every effort has been made to ensure accuracy and fulling mill operator, still areas may have been included sometimes these areas may affect the content or meeting of the given symptoms. Total time spent caring for the patient today was 25 minutes. This includes time spent before the visit reviewing the chart, time spent during the visit, and time spent after the visit and documentation. Orders: Orders Comprehensive Met. Panel Today Z00.00 - Encounter for general adult medical examination without abnormal findings Complete Blood Count Auto Diff Today Z00.00 - Encounter for general adult medical examination without abnormal findings ECG 12 lead EKG Today Z01.818 - Encounter for other preprocedural examination Coding Level of Care Code Est Pt Level 4 (59124) Diagnoses Pre-op examination Z01.818
[2023-11-10 14:32] VITALS: BP 130/88; PULSE 80; O2SAT 98; BMI 35.7
== END 2023-11-10 15:28 | disposition home or self-care (01) ==
PROVIDERS: PCP Internal Medicine
DX: Z01.818 Encounter for other preprocedural examination (principal)
CPT/HCPCS: 99214

== ENCOUNTER 2023-11-11 10:19 | Outpatient (REF) | payer BC, SELFPAY ==
[2023-11-11 13:08] LABS: MANUAL DIFF FLAG NO
[2023-11-11 13:24] LABS: Basophils Absolute Auto 0.1 X10*3/uL (0.0-0.2); Basophils Percent Auto 0.7 % (0-2); Eosinophils Absolute Auto 0.1 X10*3/uL (0.0-0.4); Eosinophils Percent Auto 1.3 % (0-4); Hematocrit 42.6 % (37.0-47.0); Hemoglobin 13.8 g/dl (12.0-16.0); Imm Gran Abs Auto 0.03 X10*3/uL (0.00-0.03); Imm Gran Pct Auto 0.4 % (0.0-0.4); Lymphocytes Absolute Auto 2.7 X10*3/uL (1.2-4.9); Lymphocytes Percent Auto 35.5 % (20-40); Mean Corpuscular HGB Conc 32.4 g/dl (31.0-35.0); Mean Corpuscular Hemoglobin 31.4 pg (27.0-33.0); Mean Corpuscular Volume 96.8 fL (80.0-98.0); Monocytes Absolute Auto 0.5 X10*3/uL (0.1-1.2); Monocytes Percent Auto 6.2 % (2-11); Neutrophils Absolute Auto 4.3 x10*3/uL (2.0-8.3); Neutrophils Percent Auto 55.9 % (45-73); Platelet Count 236 X10*3/uL (160-400); Red Cell Distribution Width 13.7 % (11.0-16.0); White Blood Count 7.6 X10*3/uL (4.8-10.8)
[2023-11-11 13:37] LABS: Alanine Aminotransferase 21 U/L (0-31); Albumin Level 4.3 g/dL (3.5-5.0); Alkaline Phosphatase 75 U/L (39-117); Anion Gap 15 (12-20); Aspartate Amino Transferase 21 U/L (5-31); Bilirubin Total 0.6 mg/dL (0.0-1.0); Blood Urea Nitrogen 10 mg/dL (9-16); Calcium 9.4 mg/dL (8.4-10.2); Carbon Dioxide 25 mmol/L (22-29); Chloride 106 mmol/L (96-108); Estimated Glomerular Filt Rate > 60; Glucose Random 93 mg/dL (60-115); Potassium 4.8 mmol/L (3.3-5.1); Sodium 141 mmol/L (135-145)
== END 2023-11-11 10:20 | disposition home or self-care (01) ==
LOC: HO.HMGCLDS 10:19
PROVIDERS: PCP Internal Medicine
DX: Z00.00 Encounter for general adult medical examination without abnormal findings (principal)
CPT/HCPCS: 36415; 80053; 85025

== ENCOUNTER 2024-01-04 12:54 | Outpatient (REF) | payer BC, SELFPAY ==
--- NOTE | ~2024-01-04 | US_ITS ---
EXAMINATION: US RETROPERITONEAL LIMITED (RENAL ONLY) CLINICAL INFORMATION: Cyst of kidney, acquired. COMPARISON: CT abdomen and pelvis 07/16/2023. Renal ultrasound 04/14/2023. TECHNIQUE: Real-time imaging of the kidneys. FINDINGS: RIGHT KIDNEY: 12.2 x 4.9 x 4.8 cm (SAG x AP x TRV). The kidney is normal in size, contour, and echogenicity. Renal cortical thickness is normal. No calculi or focal parenchymal lesions. No hydronephrosis. LEFT KIDNEY: 12.7 x 6.3 x 4.9 cm (SAG x AP x TRV). The kidney is normal in size, contour, and echogenicity. Renal cortical thickness is normal. No renal calculi or hydronephrosis. Simple appearing cortical cyst in the lower pole measuring 6 x 5.3 x 6 cm, previously 5.8 x 5.2 x 5.4 cm on 04/14/2023. US/US renal BI IMPRESSION: Simple appearing left renal cyst, slightly increased in size since 04/14/2023. Electronically signed by: Beverly Blandon MD 01/11/2024 04:00 PM EDT
== END 2024-01-04 12:55 | disposition home or self-care (01) ==
LOC: HO.HMGCX 12:54
PROVIDERS: PCP Internal Medicine; Visit Provider Internal Medicine
DX: N28.1 Cyst of kidney, acquired (principal)
CPT/HCPCS: 76775

== ENCOUNTER 2024-01-10 13:14 | Outpatient (AMB) | payer BC, SELFPAY ==
[2024-01-10 13:17] VITALS: BP 112/76; PULSE 72; O2SAT 97; BMI 36.4
--- NOTE | 2024-01-10 13:17 | MHC.PC.OV ---
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 [employer] Required: No Accompanied by: Self / Same As Patient Allergies metoprolol Allergy (Severe, Verified 01/10/24 13:20) Anaphylaxis Tobacco use date assessed: 08/13/23 Dental Screening Dental Screen Date: 01/10/24 Did you have a dental visit in the last 12 months?: Yes Did you have a dental problem in the last 6 months where you did not have access to dental care?: No Was dental information given to patient?: Patient has dentist HPI hypothyroid HPI Details 63-year-old obese female with hypertension hypothyroidism hypercholesterolemia GERD last seen in October 2023 for preoperative evaluation. Patient's colonoscopy is up-to-date 2020 mammogram is due patient had postmenopausal bleeding and had fractional dilatation and curettage, hysteroscopic endometrial polyp removal multiple. November 26 2023. no cancer. now monitoring ovarian cyst L PFSH Medical History (Updated 01/10/24 @ 13:38 by Tamar Bermudez MD) Preoperative clearance Rotavirus enteritis Vaginal bleeding Pre-op examination Abnormal vaginal bleeding in postmenopausal patient Chronic calculous cholecystitis Cholelithiasis Pneumonia due to COVID-19 virus Viral pneumonia COVID-19 Annual physical exam Gastroenteritis Low back pain Impacted cerumen of left ear Knee pain, right Shoulder pain, bilateral Mammogram declined Fatty liver GERD (gastroesophageal reflux disease) Hypercholesterolemia Vitamin B12 deficiency Knee osteoarthritis PUD (peptic ulcer disease) Mammogram declined Syncope Hypothyroid Hypertension Obesity Surgical History (Updated 01/10/24 @ 13:22 by DELILAH Iniguez) History of cholecystectomy Hx of toe surgery Hx of colonoscopy History of D&C History of surgery Family History Father No problems noted. Mother No problems noted. Paternal Uncle Lung cancer Esophageal cancer Throat cancer Maternal Uncle Myocardial infarction Paternal Aunt Lung cancer Maternal Aunt CVA (cerebral vascular accident) Paternal Grandmother Ovarian cancer Social History (Reviewed 01/10/24 @ 13:22 by VALERY Iniguez Household Members: Spouse Housing: House Are you a primary laboratory animal caretaker to a significant other at home: No Do you presently have visiting nurse or other home services: No Alcohol intake: never Comment: Does not use cane all the time Patient Tobacco Use Status: Former Tobacco user Tobacco use type: Cigarette Years Smoked: 0.5 e-Cigarette/Vaping Use: Never Used Second Hand Smoke Exposure: No service: No Current occupational status: disabled Cognitive needs: No Hearing needs: No Vision needs: Yes Questionnaire Thrive Questionnaire Date Thrive assessed: 07/17/23 Are you currently unemployed and looking for a job?: No BLAYNE-7 AMB Questionnaire BLAYNE-7 Date BLAYNE - 7 assessed: 07/08/23 Source: Developed by Drs. Rupert Marks, Luz La, Bobo Chacon and colleagues, with an educational oswald from [employer]. Physical exam (Primary Care) Vital Signs: Last Vital Signs Pulse 72 01/10/24 13:17 BP 112/76 01/10/24 13:17 Pulse Ox 97 01/10/24 13:17 Oxygen Delivery Method Room Air 01/10/24 13:17 BMI result Body Mass Index 36.4 Tobacco/Smoking Status: Tobacco use Status Tobacco use date assessed 08/13/23 01/10/24 13:24 Patient Tobacco Use Status Former Tobacco user 01/10/24 13:24 Tobacco use type Cigarette 01/10/24 13:24 e-Cigarette/Vaping Use Never Used 01/10/24 13:24 Thrive Assessment: Date of Thrive Assessment Date Thrive assessed 07/17/23 01/10/24 13:24 Const General: alert; No acute distress Eyes Conjunctivae: conjunctivae normal Resp Auscultation: clear to auscultation bilaterally Cardio Rate: regular rate Rhythm: regular rhythm GI Inspection: Yes normal to inspection Extrem General: Yes normal to inspection and No edema Assessment and Plan Assessment & Plan (1) Postmenopausal bleeding: Comment: Proliferative endometrium. Status post hysteroscopy with removal of polyp November 2023 Code(s): N95.0 - Postmenopausal bleeding Plan: Status post vaginal procedure under Gynecology. November 2023 (2) Obesity: Code(s): E66.9 - Obesity, unspecified Qualifiers: Obesity type: due to excess calories Obesity classification: adult class 1 (BMI 30 - 34.9) Serious obesity comorbidity presence: without serious comorbidity Body mass index: BMI 34.0-34.9 Qualified Code(s): E66.09 - Other obesity due to excess calories; Z68.34 - Body mass index [BMI] 34.0-34.9, adult Plan: Diet and exercise (3) Hypertension: Code(s): I10 - Essential (primary) hypertension Qualifiers: Hypertension type: essential hypertension Qualified Code(s): I10 - Essential (primary) hypertension Plan: Continue with blood pressure medication. Decrease salt intake and exercise on atenolol 25 mg once a day (4) Hypothyroid: Code(s): E03.9 - Hypothyroidism, unspecified Qualifiers: Hypothyroidism type: acquired Qualified Code(s): E03.9 - Hypothyroidism, unspecified Plan: Continue with thyroid medication (5) Hypercholesterolemia: Comment: BORDERLINE, NO MEDS Code(s): E78.00 - Pure hypercholesterolemia, unspecified Plan: Avoid fried foods, chicken skin, eggs, butter margarine, pastries and meat. Be it pork or beef they have a lot of cholesterol (6) GERD (gastroesophageal reflux disease): Code(s): K21.9 - Gastro-esophageal reflux disease without esophagitis Plan: Avoid the foods that causes that usually spicy foods, tomato products, juices, coffee, soda and foods that your sensitive to. After eating do not lie down, allow 3-4 hours before in lie down. And keep the head of bed above 30 degrees to avoid the acid from going up. (7) Fatty liver: Code(s): K76.0 - Fatty (change of) liver, not elsewhere classified Plan: Low-fat diet and exercise Orders: Orders Complete Blood Count Auto Diff Today E03.9 - Hypothyroidism, unspecified Vitamin B12 and Folate Today E03.9 - Hypothyroidism, unspecified UA CC w/rflx Micro + Cult Today E03.9 - Hypothyroidism, unspecified, R30.0 - Dysuria Comprehensive Met. Panel Today E03.9 - Hypothyroidism, unspecified Free T4 (Free Thyroxine) Today E03.9 - Hypothyroidism, unspecified Lipid Panel Today E03.9 - Hypothyroidism, unspecified, E78.00 - Pure hypercholesterolemia, unspecified Thyroid Stimulating Hormone Today E03.9 - Hypothyroidism, unspecified Vitamin D 25-OH Total Today E03.9 - Hypothyroidism, unspecified Medications: Changed From atenolol 25 mg PO DAILY 90 days 90 tabs 1RF I10 - Essential (primary) hypertension To atenolol 12.5 mg (1/2 x 25 mg) PO DAILY 90 days 45 tabs 1RF I10 - Essential (primary) hypertension Coding Level of Care Code Est Pt Level 4 (80366) Diagnoses Postmenopausal bleeding N95.0 Class 1 obesity due to excess calories without serious comorbidity with body mass index (BMI) of 34.0 to 34.9 in adult E66.09; Z68.34 Obesity type: due to excess calories Obesity classification: adult class 1 (BMI 30 - 34.9) Serious obesity comorbidity presence: without serious comorbidity Body mass index: BMI 34.0-34.9 Essential hypertension I10 Hypertension type: essential hypertension Acquired hypothyroidism E03.9 Hypothyroidism type: acquired Hypercholesterolemia E78.00 GERD (gastroesophageal reflux disease) K21.9 Fatty liver K76.0
[2024-01-10 13:42] VITALS: BP 114/70
== END 2024-01-10 13:53 | disposition home or self-care (01) ==
PROVIDERS: PCP Internal Medicine; Visit Provider Internal Medicine
DX: N95.0 Postmenopausal bleeding (principal); E66.09 Other obesity due to excess calories; Z68.34 Body mass index [BMI] 34.0-34.9, adult; I10 Essential (primary) hypertension; E03.9 Hypothyroidism, unspecified; E78.00 Pure hypercholesterolemia, unspecified; K21.9 Gastro-esophageal reflux disease without esophagitis; K76.0 Fatty (change of) liver, not elsewhere classified

== ENCOUNTER → 2024-01-10 13:14 | Outpatient (BNVA) | payer BC, SELFPAY | PROVIDERS: PCP Internal Medicine; Visit Provider Internal Medicine | DX: N95.0 Postmenopausal bleeding (principal); E66.09 Other obesity due to excess calories; Z68.34 Body mass index [BMI] 34.0-34.9, adult; I10 Essential (primary) hypertension; E03.9 Hypothyroidism, unspecified; E78.00 Pure hypercholesterolemia, unspecified; K21.9 Gastro-esophageal reflux disease without esophagitis; K76.0 Fatty (change of) liver, not elsewhere classified; Z79.899 Other long term (current) drug therapy ==

== ENCOUNTER 2024-02-01 10:54 | Outpatient (REF) | payer BC, SELFPAY ==
[2024-02-01 13:19] LABS: MANUAL DIFF FLAG NO
[2024-02-01 13:30] LABS: Appearance Urine Clear; Color Urine Yellow; Glucose Urine UA Negative (Negative); Leukocyte Esterase Urine Trace (Negative); Nitrite Urine Negative (Negative); UMIC TRIGGER UACC YES; Urine Blood Negative (Negative); Urine Ketones Negative (Negative); Urine Protein Negative (Neg-Trace)
[2024-02-01 13:39] LABS: Basophils Absolute Auto 0.1 X10*3/uL (0.0-0.2); Basophils Percent Auto 0.8 % (0-2); Eosinophils Absolute Auto 0.2 X10*3/uL (0.0-0.4); Eosinophils Percent Auto 2.2 % (0-4); Hematocrit 42.2 % (37.0-47.0); Imm Gran Abs Auto 0.04 X10*3/uL (0.00-0.03); Imm Gran Pct Auto 0.5 % (0.0-0.4); Lymphocytes Absolute Auto 2.6 X10*3/uL (1.2-4.9); Lymphocytes Percent Auto 34.9 % (20-40); Mean Corpuscular HGB Conc 33.2 g/dl (31.0-35.0); Mean Corpuscular Hemoglobin 31.6 pg (27.0-33.0); Mean Corpuscular Volume 95.3 fL (80.0-98.0); Mean Platelet Volume 10.7 fL (9.4-12.3); Monocytes Absolute Auto 0.4 X10*3/uL (0.1-1.2); Monocytes Percent Auto 5.9 % (2-11); Neutrophils Absolute Auto 4.1 x10*3/uL (2.0-8.3); Neutrophils Percent Auto 55.7 % (45-73); Platelet Count 238 X10*3/uL (160-400); Red Blood Count 4.43 X10*6/uL (4.20-5.50); Red Cell Distribution Width 13.9 % (11.0-16.0); White Blood Count 7.4 X10*3/uL (4.8-10.8)
[2024-02-01 13:49] LABS: Bacteria Urine None Seen (None Seen); Hyaline Casts Urine 0-2 /LPF (0-2); RBC Urine 0-2 /HPF (0-2); WBC Urine 0-5 /HPF (0-5)
[2024-02-01 14:25] LABS: Alanine Aminotransferase 29 U/L (0-31); Albumin Level 4.3 g/dL (3.5-5.0); Alkaline Phosphatase 77 U/L (39-117); Anion Gap 15 (12-20); Aspartate Amino Transferase 26 U/L (5-31); Bilirubin Total 0.6 mg/dL (0.0-1.0); Blood Urea Nitrogen 11 mg/dL (9-16); Calcium 9.8 mg/dL (8.4-10.2); Carbon Dioxide 25 mmol/L (22-29); Chloride 108 mmol/L (96-108); Cholesterol 203 mg/dL (<200); Estimated Glomerular Filt Rate > 60; Glucose Random 102 mg/dL (60-115); HDL Cholesterol 53 mg/dL (>40); LDL Cholesterol Calculated 116 mg/dL (<100); Potassium 4.8 mmol/L (3.3-5.1); Sodium 143 mmol/L (135-145); Triglycerides 171 mg/dL (<150)
[2024-02-01 14:26] LABS: Free T4 (Free Thyroxine) 0.98 ng/dL (0.71-1.85); Thyroid Stimulating Hormone 3.09 uIU/mL (0.32-4.0); Vitamin D 25-OH Total 55.7 ng/mL (>30)
[2024-02-01 14:36] LABS: Folate 13.5 ng/mL (> or = 4.0); Vitamin B12 599 pg/mL (200-900)
== END 2024-02-01 10:55 | disposition home or self-care (01) ==
LOC: HO.HMGCLDS 10:54
PROVIDERS: PCP Internal Medicine; Visit Provider Internal Medicine
DX: E03.9 Hypothyroidism, unspecified (principal); E78.00 Pure hypercholesterolemia, unspecified; R30.0 Dysuria
CPT/HCPCS: 36415; 80053; 80061; 81001; 82306; 82607; 82746; 84439; 84443; 85025

== ENCOUNTER 2024-04-05 12:15 | Outpatient (AMB) | payer BC, SELFPAY ==
[2024-04-05 12:23] VITALS: BP 140/80; PULSE 91; O2SAT 99; BMI 36.6
--- NOTE | 2024-04-05 12:23 | MHC.PC.OV ---
Vital Signs 04/05/24 12:23 04/05/24 12:35 Height 5 ft 4 in Weight 213 lb BMI 36.6 BP 140/80 H 120/70 Blood Pressure Location Lt brachial Lt brachial Position Sitting Sitting Pulse 91 Pulse Source Pulse Oximeter Pulse Oximetry (%) 99 Oxygen Delivery Method Room Air Intake Visit Reasons: Annual exam Intake Note: Patient here for an annual physical exam Office Specialist Required: No Accompanied by: Spouse Allergies metoprolol Allergy (Severe, Verified 04/05/24 12:26) Anaphylaxis Medication List - Last Reconciled 04/05/24 by Tamar Bermudez MD acetaminophen ER 650 mg PO DAILY PRN atenolol 25 mg PO DAILY cholecalciferol (vitamin D3) 50 mcg PO DAILY cyanocobalamin (vitamin B-12) 1,000 mcg PO DAILY levothyroxine 75 mcg PO DAILY@0600 omega-3 fatty acids 1,250 mg PO DAILY Saccharomyces boulardii (Daily Probiotic (S. boulardii)) 5,000 mmu cells PO DAILY Tobacco use date assessed: 08/13/23 Dental Screening Dental Screen Date: 01/10/24 HPI Annual exam HPI Details occ dizzy march, turning around. The patient is a 63-year-old female presenting with multiple health concerns. She has a history of essential hypertension, currently managed with atenolol. The patient reports a prior allergic reaction to metoprolol. She has a documented history of uterine polyps for which she underwent a benign dilatation and curettage. The patient was diagnosed with mild sleep apnea and has opted against CPAP therapy. She experiences persistent sensorineural hearing loss with tinnitus and does not tolerate hearing aids well. Recently, the patient reported a single episode of lightheadedness likely associated with tinnitus. There is a history of prediabetes, with fasting blood sugar most recently recorded at 108 mg/dL. The patient's medical history includes peripheral vascular disease with episodic peripheral edema. Additionally, she has a digital mucous cyst on her finger, previously surgically treated, but has since recurred. The patient has a cautious approach towards cancer screening and preventive imaging, expressing reluctance towards routine mammograms and decisions influenced by potential familial risk. She has slightly elevated cholesterol levels. - Discussed ongoing management of hypertension with adherence to atenolol. - Routine cancer screenings: hesitant about mammograms, with a potential screening scheduled for June or July. - Advocated for lifestyle modifications for prediabetes, including dietary adjustments to reduce sugar and carbohydrate intake. - Advised weight management strategies with emphasis on a plant-based diet. - Encouraged increased physical activity to manage peripheral vascular health. - Vaccination status updated for flu; encouraged COVID booster and discussed shingles immunization options. - Emphasized importance of regular eye and hearing evaluations, with upcoming optometry appointment planned. - Lives with a supportive partner. - Does not consume alcohol or use tobacco products. - Avoids recreational drugs. - Exercise routine involves minimal physical activity, limited to occasional arm movements linked to crafting. - Reports stable social support and involvement in community events. - Attempts weight management through dietary changes, although dietary indiscretions with occasional indulgence in rabbit food or low-calorie meals. - Functional and occupational activities generally managed with adaptive aids due to lower extremity joint discomfort. - General: Denies fever, denies unexplained weight changes. - Cardiovascular: Denies chest pain. - Respiratory: Denies shortness of breath. - Gastrointestinal: Reports recent episode of lightheadedness without other gastrointestinal symptoms. - Musculoskeletal: Denies pain during physical examination maneuvers. - Neurological: Reports tinnitus and isolated incidents of dizziness/lightheadedness. - Skin: Denies current rash, wound is healed. - Genitourinary: Denies dysuria or hematuria, notes nocturia 2-3 times nightly. - Labs: - Fasting blood glucose at 108 mg/dL, indicating prediabetes. - Total cholesterol at 203 mg/dL, slightly elevated. - B12, vitamin D, and folic levels within normal range. - Kidney function and liver enzymes appeared normal in recent bloodwork. [facility] Medical History (Updated 04/05/24 @ 12:43 by Tamar Bermudez MD) Preoperative clearance Rotavirus enteritis Vaginal bleeding Pre-op examination Abnormal vaginal bleeding in postmenopausal patient Chronic calculous cholecystitis Cholelithiasis Pneumonia due to COVID-19 virus Viral pneumonia COVID-19 Annual physical exam Gastroenteritis Low back pain Impacted cerumen of left ear Knee pain, right Shoulder pain, bilateral Mammogram declined Fatty liver GERD (gastroesophageal reflux disease) Hypercholesterolemia Vitamin B12 deficiency Knee osteoarthritis PUD (peptic ulcer disease) Mammogram declined Syncope Hypothyroid Hypertension Obesity Surgical History History of cholecystectomy Hx of toe surgery Hx of colonoscopy History of D&C History of surgery Family History (Updated 04/05/24 @ 12:38 by Tamar Bermudez MD) Father No problems noted. Mother No problems noted. Paternal Uncle Lung cancer Esophageal cancer Throat cancer Maternal Uncle Myocardial infarction Paternal Aunt Lung cancer Maternal Aunt CVA (cerebral vascular accident) Paternal Grandmother Ovarian cancer Maternal Grandmother CVA (cerebral vascular accident) Social History (Updated 04/05/24 @ 12:39 by Tamar Bermudez MD) Household Members: Spouse Housing: House Are you a primary respiratory care faculty to a significant other at home: No Do you presently have visiting nurse or other home services: No Alcohol intake: never Comment: Does not use cane all the time Patient Tobacco Use Status: Former Tobacco user Tobacco use type: Cigarette Years Smoked: 0.5 high school e-Cigarette/Vaping Use: Never Used Second Hand Smoke Exposure: No service: No Current occupational status: disabled Cognitive needs: No Hearing needs: No Vision needs: Yes Questionnaire PHQ-9 Over the last 2 weeks, how often have you been bothered by any of the following problems? 1. Little interest or pleasure in doing things: not at all 2. Feeling down, depressed, or hopeless: not at all 3. Trouble falling or staying asleep, or sleeping too much: not at all 4. Feeling tired or having little energy: not at all 5. Poor appetite or overeating: not at all 6. Feeling bad about yourself - or that you are a failure or have let yourself or your family down: not at all 7. Trouble concentrating on things, such as reading the newspaper or watching television: not at all 8. Moving or speaking so slowly that other people could have noticed. Or the opposite - being so fidgety or restless that you have been moving around a lot more than usual: not at all 9. Thoughts that you would be better off or of hurting yourself in some way: not at all Total score: 0 Source: Developed by Drs. Rupert Marks, Luz La, Bobo Chacon and colleagues, with an educational oswald from [employer]. Thrive Questionnaire Date Thrive assessed: 03/29/24 I am a: Patient What is your living situation today?: I have a steady place to live Within the past 12 months, did the food you bought not last and you didn't have the money to get more?: Often true Within the past 12 months, did you worry whether your food would run out before you got money to buy more?: Never true Do you have trouble paying for medicines?: No Do you have trouble getting transportation to medical appointments?: No Do you have trouble paying your heating and electricity bill?: No Do you have trouble taking care of your child, family member or friend?: No Do you have trouble with day-to-day activities such as bathing, preparing meals, shopping, managing finances, etc.?: No Are you currently unemployed and looking for a job?: No Are you interested in more education?: No Please select the resources that you would like help with: None Currently or been in a relationship where the following occur: No concerns reported THRIVE Score: 1 AUDIT C Alcohol Use Questionnaire (AUDIT-C) 1. How often do you have a drink containing alcohol?: Never 3. How often do you have six or more drinks on one occasion?: Never Total Score: 0 BLYANE-7 AMB Questionnaire BLAYNE-7 Date BLAYNE - 7 assessed: 07/08/23 Feeling nervous, anxious, or on edge: 0 = Not at all Not being able to stop or control worryin = Not at all Worrying too much about different things: 0 = Not at all Trouble relaxin = Not at all Being so restless that it is hard to sit still: 0 = Not at all Becoming easily annoyed or irritable: 0 = Not at all Feeling afraid as if something awful might happen: 0 = Not at all Total BLAYNE-7 score (0-4 normal; 5-9 mild; 10-14 moderate; 15-21 severe): 0 Source: Developed by Drs. Rupert Marks, Luz La, Bobo Chacon and colleagues, with an educational oswald from [employer]. Review of Systems Const Denies poor appetite and Denies weakness Eyes Denies no additional complaints ENT Reports Normal hearing present, Denies dizziness, Denies nasal congestion, Denies tinnitus and Denies sore throat Card Denies chest pain, Denies syncope, Denies rapid heart rate and Denies dyspnea Resp Denies cough and Denies dyspnea GI Denies change in stool character, Reports constipation, Denies diarrhea, Denies nausea and Denies vomiting Denies urinary frequency, Denies difficulty voiding and Denies dysuria Neuro Reports Normal hearing present, Denies confusion, Denies dizziness, Denies syncope and Denies weakness Psych Denies confusion Physical exam (Primary Care) Vital Signs: Last Vital Signs Pulse 91 04/05/24 12:23 BP 120/70 04/05/24 12:35 Pulse Ox 99 04/05/24 12:23 Oxygen Delivery Method Room Air 04/05/24 12:23 BMI result Body Mass Index 36.6 Tobacco/Smoking Status: Tobacco use Status Tobacco use date assessed 08/13/23 04/05/24 12:30 Patient Tobacco Use Status Former Tobacco user 04/05/24 12:39 Tobacco use type Cigarette 04/05/24 12:39 e-Cigarette/Vaping Use Never Used 04/05/24 12:39 PHQ-9: PHQ-9 Score PHQ-9: Total score 0 04/05/24 12:30 Thrive Assessment: Date of Thrive Assessment Date Thrive assessed 03/29/24 04/05/24 12:30 Currently or been in a relationship where the following occur: No concerns reported Const General: No confusion Orientation/consciousness: No confusion HENMT Head: Yes normocephalic Ears: external ears normal and TM's normal bilaterally Face and sinus: Yes normal facial exam Mouth: moist mucous membranes Throat: Yes tonsils normal Eyes Conjunctivae: conjunctivae normal Pupils: Equal, round and reactive pupils present and Pupil accommodation reflex normal Direct Ophthalmoscopy: normal light reflex Neck Neck: No lymphadenopathy Thyroid: Thyroid normal Chest Chest palpation & inspection: normal inspection of the chest Resp Effort & Inspection: normal respiratory effort and no audible wheezes Auscultation: clear to auscultation bilaterally, no crackles, no wheezes and lung sounds not diminished Cardio Rate: regular rate Rhythm: regular rhythm Peripheral pulses: radial pulses present and dorsalis pedis present GI Other: guaiac neg Palpation (GI): no masses Auscultation: normal bowel sounds and normoactive bowel sounds Rectal Exam - Female: deferred Skin General skin exam: no rashes or lesions noted Rashes: no rashes Neuro General: No confusion Cranial nerves: Yes Equal, round and reactive pupils present and Yes Normal hearing present Cognition (Neuro): normal cognition Gait exam (Neuro): Normal gait present Motor exam (neuro): 5/5 motor strength present throughout Deep tendon reflexes (DTR's): Right brachioradialis reflex intensity grade: 2+, Left brachioradialis reflex intensity grade: 2+, Right patellar reflex intensity grade: 2+ and Left patellar reflex intensity grade: 2+ Extrem General: No edema Office Procedures Flu Questionnaire Does the patient have a severe egg allergy?: No Does the patient have severe life threatening allergies?: No Does the patient have a fever or illness today?: No Has the patient ever had Guillain-[place] Syndrome?: No Has the patient ever had any past reaction to a flu shot?: No Immunizations Fluarix Triv 4427-4553 (PF) 45 mcg (15 mcg x 3)/0.5 mL IM syringe Performing Provider: Tamar Bermudez MD Performing Location[facility] [place] [facility] Administered by: DIANE Lara on 04/05/24 13:10 Dose Route Admin Location Dispensed Lot Number Expiration Date ND Technical System Analyst 0.5 mL IM Right Deltoid 0.5 mL [id number] 10/16/24 [id number] [employer] VIS Given Date VIS Provided VIS Publication Date 04/05/24 Single Vaccine 20 Eligibility Eligibility Date Funding Source Not [facility] Eligible 04/05/24 Private Coding Level of Care Code Est Pt Prev Care 40-64y(36343) Diagnoses Annual physical exam Z00.00 Class 1 obesity due to excess calories without serious comorbidity with body mass index (BMI) of 34.0 to 34.9 in adult E66.09; Z68.34 Body mass index: BMI 34.0-34.9 Obesity classification: adult class 1 (BMI 30 - 34.9) Obesity type: due to excess calories Serious obesity comorbidity presence: without serious comorbidity Essential hypertension I10 Hypertension type: essential hypertension Acquired hypothyroidism E03.9 Hypothyroidism type: acquired Hypercholesterolemia E78.00 Gastroesophageal reflux disease without esophagitis K21.9 Esophagitis presence: without esophagitis Fatty liver K76.0 Impaired glucose tolerance R73.02 Tinnitus H93.19 Digital mucous cyst of finger of right hand M67.441 Assessment & Plan Assessment & Plan (1) Annual physical exam: Code(s): Z00.00 - Encounter for general adult medical examination without abnormal findings Category: Medical Plan: Patient is advised to eat healthy, keep well hydrated, keep active and have adequate sleep. (2) Obesity: Code(s): E66.9 - Obesity, unspecified Category: Medical Qualifiers: Body mass index: BMI 34.0-34.9 Obesity classification: adult class 1 (BMI 30 - 34.9) Obesity type: due to excess calories Serious obesity comorbidity presence: without serious comorbidity Qualified Code(s): E66.09 - Other obesity due to excess calories; Z68.34 - Body mass index [BMI] 34.0-34.9, adult Plan: Diet and exercise (3) Hypertension: Code(s): I10 - Essential (primary) hypertension Category: Medical Qualifiers: Hypertension type: essential hypertension Qualified Code(s): I10 - Essential (primary) hypertension Plan: Continue with blood pressure medication. Decrease salt intake and exercise on atenolol 12.5 mg once a day (4) Hypothyroid: Code(s): E03.9 - Hypothyroidism, unspecified Category: Medical Qualifiers: Hypothyroidism type: acquired Qualified Code(s): E03.9 - Hypothyroidism, unspecified Plan: Continue with thyroid medication (5) Hypercholesterolemia: Comment: BORDERLINE, NO MEDS Code(s): E78.00 - Pure hypercholesterolemia, unspecified Category: Medical Plan: Avoid fried foods, chicken skin, eggs, butter margarine, pastries and meat. Be it pork or beef they have a lot of cholesterol LDL goal of less than 130 and triglyceride of less than 150. (6) GERD (gastroesophageal reflux disease): Code(s): K21.9 - Gastro-esophageal reflux disease without esophagitis Category: Medical Qualifiers: Esophagitis presence: without esophagitis Qualified Code(s): K21.9 - Gastro-esophageal reflux disease without esophagitis Plan: Avoid the foods that causes that usually spicy foods, tomato products, juices, coffee, soda and foods that your sensitive to. After eating do not lie down, allow 3-4 hours before in lie down. And keep the head of bed above 30 degrees to avoid the acid from going up. (7) Fatty liver: Code(s): K76.0 - Fatty (change of) liver, not elsewhere classified Category: Medical Plan: Low-fat diet and exercise (8) Impaired glucose tolerance: Code(s): R73.02 - Impaired glucose tolerance (oral) Category: Medical Plan: Decrease the amount of carbohydrate intake, pasta, bread, rice and potatoes are all sugar and that is aside from all the sweet stuff, remember that fruits are good but they are Sweet also. (9) Tinnitus: Code(s): H93.19 - Tinnitus, unspecified ear Category: Medical (10) Digital mucous cyst of finger of right hand: Comment: 01/2023 Code(s): M67.441 - Ganglion, right hand Category: Medical Plan - Continue atenolol for hypertension management. - Monitor blood glucose and lipid levels with lifestyle changes focused on diet and physical activity. - Regular monitoring and reassessment of peripheral vascular symptoms. - Follow-up with an flyer repairer for persistent tinnitus if symptoms progress. - Surgical consultation for digital mucous cyst if symptomatic. - Encourage adherence to upcoming flu and COVID vaccinations. - Reinforce regular eye and hearing evaluations. During this visit, we discussed maintaining current management strategies for essential hypertension with atenolol, given its effectiveness and tolerance. For prediabetes, I emphasized dietary adjustments and increased physical activity to prevent progression. We talked about the necessity of regular health screenings, although the patient has reservations regarding mammograms, with intentions to reassess in June or July. The patient agreed to complete upcoming ophthalmology and hearing assessments for continued monitoring. I provided education on the importance of managing cholesterol through dietary interventions over pharmacologic options, considering the patient's preference. We also discussed the peripheral vascular disease and its management through non-pharmacologic methods like compression stockings. The patient declined CPAP for apnea management and prefers a lifestyle-centric approach. We addressed immunization schedules, confirming intention to receive the flu shot, and the benefits of the shingles vaccine, although the patient is undecided. I also confirmed the recurrence of a digital mucous cyst and discussed potential future interventions. We considered six-month intervals for cholesterol and blood glucose retesting to reassess adjustments in management. - Continue taking atenolol daily as prescribed and monitor your blood pressure regularly. - Focus on dietary changes?reduce sugar and carb intake and increase vegetable consumption. - Engage in daily physical activity and try to move more throughout the day. - Be planful of regular eye and hearing checkups as scheduled. - Schedule and attend your mammogram screening; however, trust your current preference while being informed. - Follow through with upcoming vaccinations including the flu and COVID shots as discussed. - Wear compression stockings as needed for managing peripheral edema. - Consult with a specialist regarding your digital mucous cyst if it becomes symptomatic or uncomfortable. - Return in six months for reassessment of cholesterol and blood glucose levels. - Seek medical attention if you experience increased dizziness, chest pain, or significant new symptoms. Orders: Orders Influenza [id number] Immunization Today Z23 - Encounter for immunization Comprehensive Met. Panel 6 Months R73.02 - Impaired glucose tolerance (oral) Free T4 (Free Thyroxine) 6 Months E03.9 - Hypothyroidism, unspecified Lipid Panel 6 Months E78.00 - Pure hypercholesterolemia, unspecified Hemoglobin A1c 6 Months R73.02 - Impaired glucose tolerance (oral) Thyroid Stimulating Hormone 6 Months E03.9 - Hypothyroidism, unspecified Referrals Orthopedics Referral M67.441 - Ganglion, right hand
[2024-04-05 12:35] VITALS: BP 120/70
== END 2024-04-05 13:10 | disposition home or self-care (01) ==
PROVIDERS: PCP Internal Medicine; Visit Provider Internal Medicine
DX: Z00.00 Encounter for general adult medical examination without abnormal findings (principal); E66.09 Other obesity due to excess calories; Z68.34 Body mass index [BMI] 34.0-34.9, adult; I10 Essential (primary) hypertension; E03.9 Hypothyroidism, unspecified; E78.00 Pure hypercholesterolemia, unspecified; K21.9 Gastro-esophageal reflux disease without esophagitis; K76.0 Fatty (change of) liver, not elsewhere classified; R73.02 Impaired glucose tolerance (oral); H93.19 Tinnitus, unspecified ear; M67.441 Ganglion, right hand; Z23 Encounter for immunization

== ENCOUNTER → 2024-04-05 12:15 | Outpatient (BNVA) | payer BC, SELFPAY | PROVIDERS: PCP Internal Medicine; Visit Provider Internal Medicine | DX: Z00.00 Encounter for general adult medical examination without abnormal findings (principal); Z23 Encounter for immunization; E66.09 Other obesity due to excess calories; Z68.34 Body mass index [BMI] 34.0-34.9, adult; I10 Essential (primary) hypertension; E03.9 Hypothyroidism, unspecified; E78.00 Pure hypercholesterolemia, unspecified; K21.9 Gastro-esophageal reflux disease without esophagitis; K76.0 Fatty (change of) liver, not elsewhere classified; R73.02 Impaired glucose tolerance (oral); H93.19 Tinnitus, unspecified ear; M67.441 Ganglion, right hand; Z79.899 Other long term (current) drug therapy | CPT/HCPCS: 90471; 90656; 96127 ==

== ENCOUNTER 2024-09-25 09:50 | Outpatient (REF) | payer BC, SELFPAY ==
--- OUTSIDE RECORDS SUMMARY | 2024-09-25 10:39 | XMS_ITS | Patient Health Record ---
Author Organization [facility] Address [address] [place] [id number] Care Team Providers Care Manager Perioperative Name Role Phone Tamar Bermudez MD Primary Care Provider Gumaro Campos Jr Unavailable [phone] Reason For Referral No Information Medications Medication SIG (Take, Route, Frequency, Duration) Notes Start Date End Date Status Tylenol Arthritis Pain PRN Active Tylenol PRN Active Elderberry Active Milk Thistle Active Vitamin B12 100 MCG 1 tablet Orally Once a day Active MiraLax (colon prep) 8.3 ounce ((238) grams mixed with Gatorade or Crystal Light orally begin at 5:00 p.m. the day before the procedure for 1 day 07/10/2020 Active Vitamin D3 Super Strength 2000 UNIT 1 Orally qd Active Levothyroxine Sodium 0.05 mg 1 tablet Or ally Once a day Active Atenolol 25 MG 1 tablet Orally Once a day Active Immunizations Vaccine Route Administration Date Status Comme nts Influenza Unknown 07/10/2020 Refused Social History Tobacco Use: Social History Observation Description Date Details (start date - stop date) Former Smoker NA - NA Tobacco Use/Smoking Question Answer Notes Patient is a former smoker How long has it been since you last smoked? > 10 years Alcohol Screen Question Answer Notes Did you have a drink containing alcohol in the p ast year? No Points 0 Interpretation Negative Problems Problem Type SNOMED Code ICD Code Onset Dates Problem Status W/U Status Risk Notes Problem 975836820 Colon cancer screening (Z12.11) Active confirmed Problem 67822904 Rectal bleeding (K62.5) Active confirmed Problem 054496793 Personal history of colonic polyps (Z86.010) Active confirmed Plan Of Treatment Future Test Test Name Order Date COLONOSCOPY 05/17/2015 COLONOSCOPY 07/10/2020 Insurance Providers Payer Name Payer Address Payer Phone Subscriber Number Group Number Insured Name Patient Relationship to Insured Coverage Start Date Coverage End Date [facility] [address] [place], [place] [id number] JOSÉ MIGUEL QUINTANILLA Self - patient is the insured Medical (General) History Medical History History ICD Code tubular adenoma 2009, last colonoscopy , five-year followup 06/09. hypothyroidism hypertension D&C Denies [place],DM,CVA,Lung disease,renal dise ase Surgical History Surgery Date(Month/Year) dilatation and curettage toenail removal left finger surgery
[2024-09-25 13:47] LABS: Estimated Average Glucose 117 mg/dL; Hemoglobin A1c % 5.7 % (<6.0)
[2024-09-25 13:54] LABS: Alanine Aminotransferase 21 U/L (0-31); Albumin Level 4.2 g/dL (3.5-5.0); Alkaline Phosphatase 70 U/L (39-117); Anion Gap 13 (12-20); Aspartate Amino Transferase 21 U/L (5-31); Bilirubin Total 0.6 mg/dL (0.0-1.0); Blood Urea Nitrogen 10 mg/dL (9-16); Calcium 9.1 mg/dL (8.4-10.2); Carbon Dioxide 27 mmol/L (22-29); Chloride 104 mmol/L (96-108); Cholesterol 181 mg/dL (<200); Estimated Glomerular Filt Rate > 60; Glucose Random 90 mg/dL (60-115); HDL Cholesterol 49 mg/dL (>40); LDL Cholesterol Calculated 94 mg/dL (<100); Potassium 4.1 mmol/L (3.3-5.1); Sodium 140 mmol/L (135-145); Total Protein 6.7 g/dL (6.5-8.0); Triglycerides 191 mg/dL (<150)
[2024-09-25 14:16] LABS: Thyroid Stimulating Hormone 3.35 uIU/mL (0.32-4.0)
== END 2024-09-25 09:51 | disposition home or self-care (01) ==
LOC: HO.HMGCLDS 09:50
PROVIDERS: PCP Internal Medicine; Visit Provider Internal Medicine
DX: E78.00 Pure hypercholesterolemia, unspecified (principal); R73.02 Impaired glucose tolerance (oral); E03.9 Hypothyroidism, unspecified
CPT/HCPCS: 36415; 80053; 80061; 83036; 84439; 84443

== ENCOUNTER 2024-10-04 12:51 | Outpatient (AMB) | payer BC, SELFPAY ==
[2024-10-04 12:58] VITALS: BP 116/72; PULSE 82; O2SAT 95; BMI 35.6
--- NOTE | 2024-10-04 12:58 | A.OFFPC_ITS ---
Vital Signs 10/04/24 12:58 Height 5 ft 4 in Weight 207 lb 4 oz BMI 35.6 BP 116/72 Blood Pressure Location Lt brachial Position Sitting Pulse 82 Pulse Source Pulse Oximeter Pulse Oximetry (%) 95 Oxygen Delivery Method Room Air Intake Visit Reasons: IGT, Cholesterol Dehydrogenation Supervisor Required: No Accompanied by: Self / Same As Patient Allergies metoprolol Allergy (Severe, Verified 10/04/24 12:58) Anaphylaxis Tobacco use date assessed: 10/04/24 Dental Screening Dental Screen Date: 10/04/24 Did you have a dental visit in the last 12 months?: Yes Did you have a dental problem in the last 6 months where you did not have access to dental care?: No Was dental information given to patient?: Patient has dentist [facility] Medical History (Updated 10/04/24 @ 13:20 by Tamar Bermudez MD) Preoperative clearance Rotavirus enteritis Vaginal bleeding Pre-op examination Abnormal vaginal bleeding in postmenopausal patient Chronic calculous cholecystitis Cholelithiasis Pneumonia due to COVID-19 virus Viral pneumonia COVID-19 Annual physical exam Gastroenteritis Low back pain Impacted cerumen of left ear Knee pain, right Shoulder pain, bilateral Mammogram declined Fatty liver GERD (gastroesophageal reflux disease) Hypercholesterolemia Vitamin B12 deficiency Knee osteoarthritis PUD (peptic ulcer disease) Mammogram declined Syncope Hypothyroid Hypertension Obesity Surgical History History of cholecystectomy Hx of toe surgery Hx of colonoscopy History of D&C History of surgery Family History Father No problems noted. Mother No problems noted. Paternal Uncle Lung cancer Esophageal cancer Throat cancer Maternal Uncle Myocardial infarction Paternal Aunt Lung cancer Maternal Aunt CVA (cerebral vascular accident) Paternal Grandmother Ovarian cancer Maternal Grandmother CVA (cerebral vascular accident) Social History Household Members: Spouse Housing: House Are you a primary customer care agent to a significant other at home: No Do you presently have visiting nurse or other home services: No Alcohol intake: never Comment: Does not use cane all the time Patient Tobacco Use Status: Former Tobacco user Tobacco use type: Cigarette Years Smoked: 0.5 high school e-Cigarette/Vaping Use: Never Used Second Hand Smoke Exposure: No service: No Current occupational status: disabled Cognitive needs: No Hearing needs: No Vision needs: Yes Questionnaire PHQ-9 Over the last 2 weeks, how often have you been bothered by any of the following problems? 1. Little interest or pleasure in doing things: not at all 2. Feeling down, depressed, or hopeless: not at all 3. Trouble falling or staying asleep, or sleeping too much: not at all 4. Feeling tired or having little energy: not at all 5. Poor appetite or overeating: not at all 6. Feeling bad about yourself - or that you are a failure or have let yourself or your family down: not at all 7. Trouble concentrating on things, such as reading the newspaper or watching television: not at all 8. Moving or speaking so slowly that other people could have noticed. Or the opposite - being so fidgety or restless that you have been moving around a lot more than usual: not at all 9. Thoughts that you would be better off or of hurting yourself in some way: not at all Total score: 0 Source: Developed by Drs. Rupert Marks, Luz La, Bobo Chacon and colleagues, with an educational oswald from [employer]. Thrive Questionnaire Date Thrive assessed: 10/04/24 I am a: Patient What is your living situation today?: I have a steady place to live Within the past 12 months, did the food you bought not last and you didn't have the money to get more?: Never true Within the past 12 months, did you worry whether your food would run out before you got money to buy more?: Never true Do you have trouble paying for medicines?: No Do you have trouble getting transportation to medical appointments?: No Do you have trouble paying your heating and electricity bill?: No Do you have trouble taking care of your child, family member or friend?: No Do you have trouble with day-to-day activities such as bathing, preparing meals, shopping, managing finances, etc.?: No Are you currently unemployed and looking for a job?: No Are you interested in more education?: No Please select the resources that you would like help with: None Currently or been in a relationship where the following occur: No concerns reported THRIVE Score: 0 AUDIT C Alcohol Use Questionnaire (AUDIT-C) 1. How often do you have a drink containing alcohol?: Never 3. How often do you have six or more drinks on one occasion?: Never Total Score: 0 BLAYNE-7 AMB Questionnaire BLAYNE-7 Date BLAYNE - 7 assessed: 10/04/24 Feeling nervous, anxious, or on edge: 0 = Not at all Not being able to stop or control worryin = Not at all Worrying too much about different things: 0 = Not at all Trouble relaxin = Not at all Being so restless that it is hard to sit still: 0 = Not at all Becoming easily annoyed or irritable: 0 = Not at all Feeling afraid as if something awful might happen: 0 = Not at all Total BLAYNE-7 score (0-4 normal; 5-9 mild; 10-14 moderate; 15-21 severe): 0 Source: Developed by Drs. Rupert Marks, Luz La, Bobo Chacon and colleagues, with an educational oswald from [employer]. Physical exam (Primary Care) Vital Signs: Last Vital Signs Pulse 82 10/04/24 12:58 BP 116/72 10/04/24 12:58 Pulse Ox 95 10/04/24 12:58 Oxygen Delivery Method Room Air 10/04/24 12:58 BMI result Body Mass Index 35.6 Tobacco/Smoking Status: Tobacco use Status Tobacco use date assessed 10/04/24 10/04/24 13:01 Patient Tobacco Use Status Former Tobacco user 10/04/24 13:01 Tobacco use type Cigarette 10/04/24 13:01 e-Cigarette/Vaping Use Never Used 10/04/24 13:01 PHQ-9: PHQ-9 Score PHQ-9: Total score 0 10/04/24 13:21 Thrive Assessment: Date of Thrive Assessment Date Thrive assessed 10/04/24 10/04/24 13:01 Currently or been in a relationship where the following occur: No concerns reported Const General: alert; No acute distress Eyes Conjunctivae: conjunctivae normal Resp Auscultation: clear to auscultation bilaterally Cardio Rate: regular rate Rhythm: regular rhythm GI Inspection: Yes normal to inspection Extrem General: Yes normal to inspection and No edema Coding Level of Care Code Est Pt Level 4 (19698) Complex EM visit Add On G2211 Diagnoses Essential hypertension I10 Hypertension type: essential hypertension Hypercholesterolemia E78.00 Impaired glucose tolerance R73.02 Acquired hypothyroidism E03.9 Hypothyroidism type: acquired Class 1 obesity due to excess calories without serious comorbidity with body mass index (BMI) of 34.0 to 34.9 in adult E66.09; Z68.34 Body mass index: BMI 34.0-34.9 Obesity classification: adult class 1 (BMI 30 - 34.9) Obesity type: due to excess calories Serious obesity comorbidity presence: without serious comorbidity Gastroesophageal reflux disease without esophagitis K21.9 Esophagitis presence: without esophagitis Digital mucous cyst of finger of right hand M67.441 Assessment & Plan Assessment & Plan (1) Hypertension: Code(s): I10 - Essential (primary) hypertension Category: Medical Qualifiers: Hypertension type: essential hypertension Qualified Code(s): I10 - Essential (primary) hypertension Plan: Continue with blood pressure medication. Decrease salt intake and exercise on atenolol 25 mg once a day (2) Hypercholesterolemia: Comment: BORDERLINE, NO MEDS Code(s): E78.00 - Pure hypercholesterolemia, unspecified Category: Medical Plan: Avoid fried foods, chicken skin, eggs, butter margarine, pastries and meat. Be it pork or beef they have a lot of cholesterol LDL goal of less than 130 and triglyceride of less than 150 diet controlled (3) Impaired glucose tolerance: Code(s): R73.02 - Impaired glucose tolerance (oral) Category: Medical Plan: Decrease the amount of carbohydrate intake, pasta, bread, rice and potatoes are all sugar and that is aside from all the sweet stuff, remember that fruits are good but they are Sweet also. (4) Hypothyroid: Code(s): E03.9 - Hypothyroidism, unspecified Category: Medical Qualifiers: Hypothyroidism type: acquired Qualified Code(s): E03.9 - Hypothy roidism, unspecified Plan: Continue with thyroid medication (5) Obesity: Code(s): E66.9 - Obesity, unspecified Category: Medical Qualifiers: Body mass index: BMI 34.0-34.9 Obesity classification: adult class 1 (BMI 30 - 34.9) Obesity type: due to excess calories Serious obesity comorbidity presence: without serious comorbidity Qualified Code(s): E66.09 - Other obesity due to excess calories; Z68.34 - Body mass index [BMI] 34.0-34.9, adult Plan: Diet and exercise (6) GERD (gastroesophageal reflux disease): Code(s): K21.9 - Gastro-esophageal reflux disease without esophagitis Category: Medical Qualifiers: Esophagitis presence: without esophagitis Qualified Code(s): K21.9 - Gastro-esophageal reflux disease without esophagitis Plan: Avoid the foods that causes that usually spicy foods, tomato products, juices, coffee, soda and foods that your sensitive to. After eating do not lie down, allow 3-4 hours before in lie down. And keep the head of bed above 30 degrees to avoid the acid from going up. (7) Digital mucous cyst of finger of right hand: Comment: 01/2023July 2024 excision Code(s): M67.441 - Ganglion, right hand Category: Medical Plan: Patient had this removed ganglion cyst seeing orthopedics Plan History of Present Illness The patient is a 63-year-old female presenting for a follow-up visit to review her medical conditions and recent laboratory results. The patient has a history of obesity, hypertension, hypothyroidism, hypercholesterolemia, gastroesophageal reflux disease, nonalcoholic fatty liver disease, peptic ulcer disease, and obstructive sleep apnea. She has declined CPAP therapy for her sleep apnea. In July 2024, the patient underwent excision of a mucoid cyst on her right middle finger, which was a recurrence of a previous cyst. She has been following up with orthopedics for this condition. Her last blood work in September 2024 showed normal electrolytes, renal function, and thyroid function. However, her triglycerides were elevated at 191 mg/dL, and her LDL cholesterol had decreased to 94 mg/dL. Her hemoglobin A1c was 5.7%, indicating good glycemic control. The patient reports experiencing abdominal pain in June and July, which resolved without intervention. She denies any current abdominal pain, urinary symptoms, or vaginal bleeding. She has an ovarian cyst and a history of uterine polyps, which were removed. Health Maintenance - Colonoscopy last performed in June 2020, up-to-date - Mammogram declined - Blood pressure management with atenolol 25 mg daily - Cholesterol management with dietary control, LDL goal <130 mg/dL, triglycerides <150 mg/dL - Diabetes management with diet and exercise, hemoglobin A1c at 5.7% - Thyroid function normal, continue current medication Social History - Diet: High intake of chicken skin, butter, and noodles, contributing to elevated cholesterol levels - Exercise: Limited physical activity reported - Alcohol: Denies alcohol consumption Review of Systems - Cardiovascular: Denies chest pain, dyspnea, or palpitations - Gastrointestinal: Reports past abdominal pain, denies current pain, nausea, or vomiting - Genitourinary: Denies urinary symptoms or vaginal bleeding Physical Exam - Abdominal Examination: No pain reported upon palpation Results - Labs: Normal electrolytes, renal function, and thyroid function - Labs: Hemoglobin A1c at 5.7% - Labs: Elevated triglycerides at 191 mg/dL - Labs: LDL cholesterol decreased to 94 mg/dL Plan The patient will continue with her current antihypertensive regimen of atenolol 25 mg daily to manage her blood pressure. Dietary modifications are recommended to address her hypercholesterolemia, with a target LDL cholesterol of less than 130 mg/dL and triglycerides less than 150 mg/dL. She is advised to maintain her current thyroid medication as her thyroid function tests are normal. For diabetes management, the patient is encouraged to continue with diet and exercise, as her hemoglobin A1c is at 5.7%, indicating good control. The patient has declined a mammogram and is aware of the need for regular screenings. She is advised to monitor her symptoms and report any recurrence of abdominal pain or other concerning symptoms. Patient was informed and verbally consented to the use of an ambient scribe for clinic note documentation during this visit. Discussion Notes During the visit, I discussed with the patient the importance of managing her cholesterol levels through dietary changes, aiming for an LDL cholesterol of less than 130 mg/dL and triglycerides less than 150 mg/dL. We reviewed her blood pressure management with atenolol 25 mg daily and emphasized the need for regular monitoring. I advised her to continue her current thyroid medication as her thyroid function is stable. We also discussed her diabetes management, highlighting the importance of diet and exercise, given her hemoglobin A1c of 5.7%. The patient has declined a mammogram, and I reiterated the importance of regular screenings. I advised her to report any recurrence of abdominal pain or other symptoms. Patient Instructions - Continue taking atenolol 25 mg daily for blood pressure management. - Follow a diet low in cholesterol and triglycerides, aiming for LDL <130 mg/dL and triglycerides <150 mg/dL. - Maintain current thyroid medication as prescribed. - Engage in regular physical activity and follow a balanced diet to manage diabetes. - Monitor for any recurrence of abdominal pain and report if symptoms return. - Consider scheduling a mammogram for regular screening.
--- OUTSIDE RECORDS SUMMARY | 2024-10-04 14:43 | XMS_ITS | Patient Health Record ---
Author Organization [facility] Address [address] [place] [id number] Care Team Providers Care Customer Complaint Clerk Name Role Phone Tamar Bermudez MD Primary Care Provider Gumaro Campos Jr Unavailable [phone] Reason For Referral No Information Medications Medication [...] Problem Status W/U Status Risk Notes Problem [id number] Colon cancer screening (Z12.11) Active confirmed Problem [id number] Rectal bleeding (K62.5) Active confirmed Problem [id number] Personal history of colonic polyps (Z86.010) Active confirmed Plan Of Treatment Future Test Test Name Order Date COLONOSCOPY 05/17/2015 COLONOSCOPY 07/10/2020 Insurance Providers Payer Name Payer Address Payer Phone Subscriber Number Group Number Insured Name Patient Relationship to Insured Coverage Start Date Coverage End Date [facility] [address] [place], [place] [id number] JOSÉ MIGUEL QUINTANILLA Self - patient is the insured Medical (General) History Medical History History ICD Code tubular adenoma 2009, last colonoscopy , five-year followup 06/09. hypothyroidism hypertension D&C Denies LA,DM,CVA,Lung disease,renal dise ase Surgical History Surgery Date(Month/Year) dilatation and curettage toenail removal left finger surgery
== END 2024-10-04 13:39 | disposition home or self-care (01) ==
LOC: HO.HMCH 12:52
PROVIDERS: PCP Internal Medicine; Visit Provider Internal Medicine
DX: I10 Essential (primary) hypertension (principal); E78.00 Pure hypercholesterolemia, unspecified; R73.02 Impaired glucose tolerance (oral); E03.9 Hypothyroidism, unspecified; E66.09 Other obesity due to excess calories; Z68.34 Body mass index [BMI] 34.0-34.9, adult; K21.9 Gastro-esophageal reflux disease without esophagitis; M67.441 Ganglion, right hand

== ENCOUNTER → 2024-10-04 12:51 | Outpatient (BNVA) | payer BC, SELFPAY | PROVIDERS: PCP Internal Medicine; Visit Provider Internal Medicine ==

== ENCOUNTER 2025-04-10 12:46 | Outpatient (AMB) | payer BC, SELFPAY ==
--- OUTSIDE RECORDS SUMMARY | 2024-07-27 09:00 | XMS_ITS ---
Author Organization [facility] Address [address] [place] [address] Care Team Providers Care Head Of Mathematics Name Role Phone Tamar Bermudez Primary Care Provider Jessy Escamilla [phone] Encounters Encounter Location Date Provider Diagnosis [address] [address] 07/27/2024 Jessy Loya Plan Of Treatment No Information Progress Notes * LINDSEYJEANNIEShayna GRANADOSa ADOB: [birth year] (64 yo F)Acc No.[id number]:07/27/2024 Progress Note Patient: Anni JARA Provider: Juan Loya DPM :1960 A ge:63 Y S ex:Female Date:07/27/2024 Address:[address] [place], [place] [id number] Pcp:Tamar Bermudez Subjective: * Chief Complaints: * * Medical History: Objective: * Vitals: Assessment: Plan: * Treatment: * Images: * The named appointment provid er may or may not be the originator of this progress note, and it is not deemed complete until electronically signed by the appointment provider. Sign off status: Pending * Provider: Juan Loya DPM Date: 0 07/27/2024 Generated for Printi ng/Famariling/eTransmitting on: 1 06/11/2024 01:47 PM EST
--- NOTE | 2025-04-10 12:50 | MHC.PC.OV ---
Vital Signs 04/10/25 12:52 Height 5 ft 4 in Weight 212 lb 2 oz BMI 36.4 BP 122/76 Blood Pressure Location Lt brachial Position Sitting Respiration 18 Pulse 78 Pulse Source Pulse Oximeter Temp Source Temporal Artery Scan Pulse Oximetry (%) 99 Oxygen Delivery Method Room Air Intake Visit Reasons: Annual Exam Admissions Assistant Required: No Accompanied by: Self / Same As Patient Allergies metoprolol Allergy (Severe, Verified 04/10/25 12:52) Anaphylaxis Medication List - Last Reconciled 04/10/25 by Tamar Bermudez MD acetaminophen ER 650 mg PO DAILY PRN atenolol 25 mg PO DAILY cholecalciferol (vitamin D3) 50 mcg PO DAILY cyanocobalamin (vitamin B-12) 1,000 mcg PO DAILY levothyroxine 75 mcg PO DAILY@0600 omega-3 fatty acids 1,250 mg PO DAILY Tobacco use date assessed: 04/10/25 Dental Screening Dental Screen Date: 04/10/25 Did you have a dental visit in the last 12 months?: Yes Did you have a dental problem in the last 6 months where you did not have access to dental care?: No Was dental information given to patient?: Patient has dentist HPI HPI Comments History of Present Illness Details History of Present Illness The patient is a 64-year-old obese female presenting for a physical exam. Her last visit was in September 2024, and she has had a 5-pound weight gain since then. Her medical history is significant for hypertension, hypothyroidism, knee osteoarthritis, hypercholesterolemia, GERD, and fatty liver. She also has a history of obstructive sleep apnea but has declined CPAP therapy. Her last colonoscopy was performed in June 2020 and is due next year. She has declined a mammogram. Blood work from September 2024 showed normal electrolytes, renal function, liver enzymes, and thyroid function. Her hemoglobin A1c was 5.7%, triglycerides were elevated at 191 mg/dL, and LDL was 94 mg/dL. Health Maintenance - The patient's last colonoscopy was in June 2020, and she is due for her next one next year. - The patient declined a mammogram. - September 2024 blood work results showed a hemoglobin A1c of 5.7%, elevated triglycerides at 191 mg/dL, and an LDL of 94 mg/dL. - A wellness plan was discussed, which included diet and exercise. - Follow-up blood work was advised. Social History - She declined recommended CPAP therapy for obstructive sleep apnea. - Diet and exercise were discussed, including a low-fat diet. Results - Labs (September 2024): Electrolytes were normal. - Renal function was normal. - Hemoglobin A1c was 5.7%. - Liver numbers were good. - Triglycerides were elevated at 191 mg/dL. - LDL was 94 mg/dL. - Thyroid function was normal. - Procedures: Colonoscopy was last done in June 2020. [facility] Medical History Preoperative clearance Rotavirus enteritis Vaginal bleeding Pre-op examination Abnormal vaginal bleeding in postmenopausal patient Chronic calculous cholecystitis Cholelithiasis Pneumonia due to COVID-19 virus Viral pneumonia COVID-19 Annual physical exam Gastroenteritis Low back pain Impacted cerumen of left ear Knee pain, right Shoulder pain, bilateral Mammogram declined Fatty liver GERD (gastroesophageal reflux disease) Hypercholesterolemia Vitamin B12 deficiency Knee osteoarthritis PUD (peptic ulcer disease) Mammogram declined Syncope Hypothyroid Hypertension Obesity Surgical History History of cholecystectomy Hx of toe surgery Hx of colonoscopy History of D&C History of surgery Family History Father No problems noted. Mother No problems noted. Paternal Uncle Lung cancer Esophageal cancer Throat cancer Maternal Uncle Myocardial infarction Paternal Aunt Lung cancer Maternal Aunt CVA (cerebral vascular accident) Paternal Grandmother Ovarian cancer Maternal Grandmother CVA (cerebral vascular accident) Social History Household Members: Spouse Housing: House Are you a primary home health care social worker to a significant other at home: No Do you presently have visiting nurse or other home services: No Alcohol intake: never Comment: Does not use cane all the time Patient Tobacco Use Status: Former Tobacco user Tobacco use type: Cigarette Years Smoked: 0.5 high school e-Cigarette/Vaping Use: Never Used Second Hand Smoke Exposure: No service: No Current occupational status: disabled Cognitive needs: No Hearing needs: No Vision needs: Yes Questionnaire Thrive Questionnaire Date Thrive assessed: 04/10/25 Within the past 12 months, did the food you bought not last and you didn't have the money to get more?: Never true Within the past 12 months, did you worry whether your food would run out before you got money to buy more?: Never true Do you have trouble paying for medicines?: No Do you have trouble getting transportation to medical appointments?: No Do you have trouble paying your heating and electricity bill?: No Do you have trouble taking care of your child, family member or friend?: No Do you have trouble with day-to-day activities such as bathing, preparing meals, shopping, managing finances, etc.?: No Are you currently unemployed and looking for a job?: No Are you interested in more education?: No Please select the resources that you would like help with: None Currently or been in a relationship where the following occur: No concerns reported THRIVE Score: 0 AUDIT C Alcohol Use Questionnaire (AUDIT-C) 2. How many drinks containing alcohol do you have on a typical day when you are drinking?: 1 or 2 3. How often do you have six or more drinks on one occasion?: Never Total Score: 0 BLAYNE-7 AMB Questionnaire BLAYNE-7 Date BLAYNE - 7 assessed: 10/04/24 Source: Developed by Drs. Rupert Marks, Luz La, Bobo Chacon and colleagues, with an educational oswald from [employer]. Review of Systems Narrative Review of Systems Const Denies poor appetite and Denies weakness Eyes Denies no additional complaints ENT Reports Normal hearing present, Denies dizziness, Denies nasal congestion, Denies tinnitus and Denies sore throat Card Denies chest pain, Denies syncope, Denies rapid heart rate and Denies dyspnea Resp Denies cough and Denies dyspnea GI Denies change in stool character, Reports constipation, Denies diarrhea, Denies nausea and Denies vomiting Denies urinary frequency, Denies difficulty voiding and Denies dysuria Neuro Reports Normal hearing present, Denies confusion, Denies dizziness, Denies syncope and Denies weakness Psych Denies confusion Physical exam (Primary Care) Vital Signs: Last Vital Signs Pulse 78 04/10/25 12:52 Resp 18 04/10/25 12:52 BP 122/76 04/10/25 12:52 Pulse Ox 99 04/10/25 12:52 Oxygen Delivery Method Room Air 04/10/25 12:52 BMI result Body Mass Index 36.4 Tobacco/Smoking Status: Tobacco use Status Tobacco use date assessed 04/10/25 04/10/25 12:59 Patient Tobacco Use Status Former Tobacco user 04/10/25 12:59 Tobacco use type Cigarette 04/10/25 12:59 e-Cigarette/Vaping Use Never Used 04/10/25 12:59 Thrive Assessment: Date of Thrive Assessment Date Thrive assessed 04/10/25 04/10/25 12:59 Currently or been in a relationship where the following occur: No concerns reported Narrative Physical Exam General: Cooperative, healthy appearing, comfortable, no acute distress and well developed Orientation: Patient oriented x3 Limitations: No limitations Head: Normal to inspection Ears: Hearing grossly normal bilaterally Nose: Normal external nose present Face and sinus: Normal facial exam Eyes: Appearance normal, both eyes and all related structures Neck: Normal visual inspection and Yes full ROM Respiratory: Normal respiratory effort and able to speak in complete sentences. Clear to auscultation bilaterally Cardiovascular: Regular rate and rhythm. Normal S1 and S2 GI: Normal to inspection. Soft to palpation and nontender Skin: No rashes or lesions noted Neuro: Patient oriented x3 Extremities: Normal to inspection Const General: No confusion Orientation/consciousness: No confusion HENMT Other: impacted cerumen Head: Yes normocephalic Ears: external ears normal Face and sinus: Yes normal facial exam Mouth: moist mucous membranes Throat: Yes tonsils normal Eyes Conjunctivae: conjunctivae normal Pupils: Equal, round and reactive pupils present and Pupil accommodation reflex normal Direct Ophthalmoscopy: normal light reflex Neck Neck: No lymphadenopathy Thyroid: Thyroid normal Chest Chest palpation & inspection: normal inspection of the chest Resp Effort & Inspection: normal respiratory effort and no audible wheezes Auscultation: clear to auscultation bilaterally, no crackles, no wheezes and lung sounds not diminished Cardio Rate: regular rate Rhythm: regular rhythm Peripheral pulses: radial pulses present and dorsalis pedis present GI Other: colon test next year Palpation (GI): no masses Auscultation: normal bowel sounds and normoactive bowel sounds Rectal Exam - Female: deferred Skin General skin exam: no rashes or lesions noted Rashes: no rashes Neuro General: No confusion Cranial nerves: Yes Equal, round and reactive pupils present and Yes Normal hearing present Cognition (Neuro): normal cognition Gait exam (Neuro): Normal gait present Motor exam (neuro): 5/5 motor strength present throughout Deep tendon reflexes (DTR's): Right brachioradialis reflex intensity grade: 2+, Left brachioradialis reflex intensity grade: 2+, Right patellar reflex intensity grade: 2+ and Left patellar reflex intensity grade: 2+ Extrem General: No edema Coding Level of Care Code Est Pt Prev Care 40-64y(03995) Diagnoses Annual physical exam Z00.00 Obstructive sleep apnea (adult) (pediatric) G47.33 Essential hypertension I10 Hypertension type: essential hypertension Hypercholesterolemia E78.00 Impaired glucose tolerance R73.02 Acquired hypothyroidism E03.9 Hypothyroidism type: acquired Class 1 obesity due to excess calories without serious comorbidity with body mass index (BMI) of 34.0 to 34.9 in adult E66.09; Z68.34 Body mass index: BMI 34.0-34.9 Obesity classification: adult class 1 (BMI 30 - 34.9) Obesity type: due to excess calories Serious obesity comorbidity presence: without serious comorbidity Gastroesophageal reflux disease without esophagitis K21.9 Esophagitis presence: without esophagitis Fatty liver K76.0 Colon cancer screening Z12.11 Leg swelling M79.89 Impacted cerumen of both ears H61.23 Assessment & Plan Assessment & Plan (1) Annual physical exam: Code(s): Z00.00 - Encounter for general adult medical examination without abnormal findings Category: Medical Plan: Patient is advised to eat healthy, keep well hydrated, keep active and have adequate sleep. (2) Obstructive sleep apnea (adult) (pediatric): Comment: declined CPAP mild Code(s): G47.33 - Obstructive sleep apnea (adult) (pediatric) Category: Medical Plan: Discussed the treatment of obstructive sleep apnea (3) Hypertension: Code(s): I10 - Essential (primary) hypertension Category: Medical Qualifiers: Hypertension type: essential hypertension Qualified Code(s): I10 - Essential (primary) hypertension Plan: Continue with blood pressure medication. Decrease salt intake and exercise (4) Hypercholesterolemia: Comment: BORDERLINE, NO MEDS Code(s): E78.00 - Pure hypercholesterolemia, unspecified Category: Medical Plan: Avoid fried foods, chicken skin, eggs, butter margarine, pastries and meat. Be it pork or beef they have a lot of cholesterol (5) Impaired glucose tolerance: Code(s): R73.02 - Impaired glucose tolerance (oral) Category: Medical Plan: Decrease the amount of carbohydrate intake, pasta, bread, rice and potatoes are all sugar and that is aside from all the sweet stuff, remember that fruits are good but they are Sweet also. (6) Hypothyroid: Code(s): E03.9 - Hypothyroidism, unspecified Category: Medical Qualifiers: Hypothyroidism type: acquired Qualified Code(s): E03.9 - Hypothyroidism, unspecified Plan: Continue with the thyroid medication advised blood work (7) Obesity: Code(s): E66.9 - Obesity, unspecified Category: Medical Qualifiers: Body mass index: BMI 34.0-34.9 Obesity classification: adult class 1 (BMI 30 - 34.9) Obesity type: due to excess calories Serious obesity comorbidity presence: without serious comorbidity Qualified Code(s): E66.09 - Other obesity due to excess calories; Z68.34 - Body mass index [BMI] 34.0-34.9, adult Plan: Diet and exercise (8) GERD (gastroesophageal reflux disease): Code(s): K21.9 - Gastro-esophageal reflux disease without esophagitis Category: Medical Qualifiers: Esophagitis presence: without esophagitis Qualified Code(s): K21.9 - Gastro-esophageal reflux disease without esophagitis Plan: Avoid the foods that causes that usually spicy foods, tomato products, juices, coffee, soda and foods that your sensitive to. After eating do not lie down, allow 3-4 hours before in lie down. And keep the head of bed above 30 degrees to avoid the acid from going up. (9) Fatty liver: Code(s): K76.0 - Fatty (change of) liver, not elsewhere classified Category: Medical Plan: Low-fat diet and exercise (10) Colon cancer screening: Code(s): Z12.11 - Encounter for screening for malignant neoplasm of colon Category: Medical (11) Leg swelling: Code(s): M79.89 - Other specified soft tissue disorders Category: Medical (12) Impacted cerumen of both ears: Code(s): H61.23 - Impacted cerumen, bilateral Category: Medical Plan Plan Patient was informed and verbally consented to the use of an ambient scribe for clinic note documentation during this visit. 1. Obstructive Sleep Apnea The treatment of obstructive sleep apnea was discussed with the patient, who has previously declined CPAP therapy. 2. Hypertension The blood pressure management plan was discussed. 3. Hypercholesterolemia And Hypertriglyceridemia A plan to manage cholesterol and elevated triglycerides was reviewed. 4. Prediabetes A plan to address the patient's prediabetic status, indicated by a hemoglobin A1c of 5.7%, was discussed. 5. Hypothyroidism The patient was advised to continue her thyroid medication. Follow-up blood work was also advised. 6. Gastroesophageal Reflux Disease (Gerd) A reflux management plan was discussed, which includes a low-fat diet and exercise. 7. Weight Management The patient was counseled on diet and exercise, with an emphasis on a low-fat diet. Discussion Notes I discussed the wellness plan with the patient, reviewing management strategies for her chronic conditions. We discussed her obstructive sleep apnea, hypertension, hypercholesterolemia, and prediabetes. I advised her to continue her thyroid medication and to obtain follow-up blood work. We also discussed her reflux plan and the importance of a low-fat diet and regular exercise for her overall health. Patient Instructions - Continue to take your thyroid medication as prescribed. - Complete the blood work that was ordered for you. - Follow a low-fat diet and get regular exercise. - We discussed plans for managing your blood pressure, cholesterol, and blood sugar levels. - Remember that your next colonoscopy is due next year. - We discussed the importance of treating your sleep apnea. Orders: Orders Complete Blood Count Auto Diff Today R73.02 - Impaired glucose tolerance (oral) Thyroid Stimulating Hormone Today R73.02 - Impaired glucose tolerance (oral) Vitamin D 25-OH Total Today R73.02 - Impaired glucose tolerance (oral) Comprehensive Met. Panel Today R73.02 - Impaired glucose tolerance (oral) Free T4 (Free Thyroxine) Today R73.02 - Impaired glucose tolerance (oral) Lipid Panel Today E78.00 - Pure hypercholesterolemia, unspecified, R73.02 - Impaired glucose tolerance (oral) Vitamin B12 and Folate Today R73.02 - Impaired glucose tolerance (oral) UA CC w/rflx Micro + Cult Today R30.0 - Dysuria, R73.02 - Impaired glucose tolerance (oral) Magnesium Today R73.02 - Impaired glucose tolerance (oral) NT Pro B Type Natriuretic Pept Today K21.9 - Gastro-esophageal reflux disease without esophagitis Referrals Gastroenterology Referral Z12.11 - Encounter for screening for malignant neoplasm of colon Medications: New omeprazole 20 mg PO DAILY 30 caps 0RF H93.19 - Tinnitus, unspecified ear
[2025-04-10 12:52] VITALS: BP 122/76; PULSE 78; RESP 18; O2SAT 99; BMI 36.4
--- OUTSIDE RECORDS SUMMARY | 2025-04-10 13:48 | XMS_ITS | Patient Health Record ---
[facility] Address [address] [place] [address] Care Team Providers [employer] Counsel[employer] Name Role Phone Aidan Delilahlauren Primary Care Provider Jessy Escamilla Unavailable [phone] Allergies Allergen (clinical drug ingredient) Drug/Non Drug Allergy documented on EMR Reaction Allergy Type Onset Date Status Metoprolol Succinate Severe Anaphylaxis Drug Allergy Active Reason For Referral No Information Medications Medication SIG (Take, Route, Frequency, Duration) Notes Start Date End Date Status Work Note . . . pt out of work 1 [id number] 03/26/2015 Not-Taking Vitamin D3 Active Acetaminophen Extra Strength 500 MG 2 tablet as needed Orally every 6 hrs; Duration: 10 days 10/08/2022 Not-Taking Levothyroxine Sodium Active Ibuprofen 800 MG 1 tablet with food o r milk as needed Orally every 8 hrs; Duration: 10 days 10/08/2022 Not-Taking Custom Orthotics as directed 02/14/2024 Active Acetaminophen-Codeine #3 300-30 MG 1-2 tablet as needed Orally every 6 hrs as needed for pain; Duration: 5 days 12/13/2014 Not-Taking Vitamin D Not-Taking B12 Liquid Health Booster Active Keflex 500 MG 1 capsule Orally lima ry 12 hrs; Duration: 10 day(s) 03/26/2015 Not-Taking Night Splint AFO - L1930 1 wear at rest; Duration: 30 days Active Keflex 500 MG 1 capsule Orally lima ry 12 hrs; Duration: 10 day(s) 12/13/2014 Not-Taking Atenolol 12.5 MG 1 tablet Orally Once a day; Duration: 30 day(s) Active Naftin 1 APPLY TO TO THE AFFECTED AREA ONCE A DAY NEEDED; Duration: 30 Not-Taking Levothroid Active Folic Acid Not-Takin g Milk Thistle Extract Active Fish Oil 1200 MG 1 capsule Orally Onc e a day; Duration: 30 day(s) Active Gabapentin 300 MG 1 capsule Orally AT BEDTIME; Duration: 10 days 10/08/2022 Not-Taking Probiotic Active Work Note Not-Taking Social History Tobacco Use: Social History Observation Description Date Details (start date - stop date) Never Smoker NA - NA Alcohol Screen Question Answer Notes Did you have a drink containing alcohol in the p ast year? No Points 0 Interpretation Negative Tobacco use other than smoking: Question Answer Notes Are you an other tobacco user? No Tobacco Control (Standard) Question Answer Notes Tobacco use: Nonsmoker Problems Problem Type SNOMED Code ICD Code Onset Dates Problem Status W/U Status Risk Notes Problem Information temporarily unavailable Primary osteoarthrit is, right ankle and foot (M19.071) Active confirmed Problem Information temporarily unavailable Other hammer toe(s) (acquired), right foot (M20.41) Active confirmed Problem Information temporarily unavailable Other hammer toe(s) (acquired), right foot (M20.41) Active confirmed Response to treatment - Improvement Problem Information temporarily unavailable Plantar fasciitis, bilateral (M72.2) Active confirmed Vital Signs Blood pressure diastolic 70 mm Hg 05/18/2024 Height 5ft4in in 05/18/2024 Blood pressure systolic 115 mm Hg 05/18/2024 Weight 210 lbs 05/18/2024 BMI 36.04 kg/m2 05/18/2024 Procedures Procedure Date Ordered Date Performed Result Body Sit e 66879-RHVAZFI NAIL, 1-5 05/18/2024 N/A Encounters Encounter Location Date Provider Diagnosis [facility] [address] [place] [address] 05/18/2024 Jessy Black Pain in right foot M79.671 ; Plantar fasciitis, bilateral M72.2 ; Calcaneal spur, right foot M77.31 ; Other myositis of right foot M60.871 ; Bursitis of right foot M77.51 ; Pain in left foot M79.672 ; Calcaneal spur, left foot M77.32 ; Other myositis of left foot M60.872 ; Bursitis of left foot M77.52 ; Onychomycosis B35.1 and Pain in left toe(s) M79.675 [facility] [address] [place] [address] 06/23/2024 Jessy Loya Assessments Encounter Date Diagnosis (ICD Code) Assessment Notes Treatment Notes Treatment Clinical Notes Section Notes 05/18/2024 Pain in right foot (ICD-10 - M79.671) 05/18/2024 Plantar fasciitis, bilateral (ICD-10 - M72.2) 05/18/2024 Calcaneal spur, right foot (ICD-10 - M77.31) 05/18/2024 Other myositis of right foot (ICD-10 - M60.871) 05/18/2024 Bursitis of right foot (ICD-10 - M77.51) 05/18/2024 Pain in left foot (ICD-10 - M79.672) 05/18/2024 Calcaneal spur, left foot (ICD-10 - M77.32) 05/18/2024 Other myositis of left foot (ICD-10 - M60.872) 05/18/2024 Bursitis of left foot (ICD-10 - M77.52) 05/18/2024 Onychomycosis (ICD-10 - B35.1) 05/18/2024 Pain in left toe(s) (ICD-10 - M79.675) Plan Of Treatment Pending Test Test Name Order Date *Liver Function Test (LFT) 02/08/2012 X ray : Foot, left 3V 03/02/2013 X ray : Foot, right 3V 11/01/2013 X ray : Foot, right 3V 04/02/2014 X ray : Foot, right 3V 03/02/2013 77247-CLGWZEL NAIL, 6 OR MORE 02/08/2013 21891-CQHPMWB NAIL, 6 OR MORE 05/12/2012 67931-WDEHPDM NAIL, 6 OR MORE 08/17/2012 99655-DMSQBJR NAIL, 6 OR MORE 11/02/2012 42984-THVAFHU NAIL, 6 OR MORE 05/10/2013 62925-WENDRLF NAIL, 6 OR MORE 04/06/2012 56974-UPVOKCF NAIL, 6 OR MORE 11/02/2011 20496-VQANHHA NAIL, 6 OR MORE 02/08/2012 15164-WVZXPAD NAIL, 6 OR MORE 01/29/2011 70217-TUQTKMJ NAIL, 6 OR MORE 05/25/2011 63601-VHVRRQX NAIL, 6 OR MORE 07/22/2011 86487-NRLWFDH NAIL, 6 OR MORE 08/19/2011 30319-BHFJNWX NAIL, 6 OR MORE 05/30/2015 99272-LEVKTKQ NAIL, 1-5 08/03/2022 42320-XNATRDO NAIL, 1-5 01/04/2023 87291-WFXYLUU NAIL, 1-5 07/05/2023 01393-LEKAVCI NAIL, 1-5 05/18/2024 59192-TIFCBDR NAIL, 1-5 11/01/2013 27140-KLHVPPG NAIL, 1-5 01/10/2014 76487-CZJBHOE NAIL, -5 12/13/2014 00914-FJAWNAL NAIL, 1-5 03/25/2015 13058-TKMODRU NAIL, 1-5 11/24/2021 24948-MVXUFSQ NAIL, -5 05/25/2022 72371-QRJQPSG NAIL, 1-5 04/02/2014 08025-CGEQZGD NAIL, 1-5 06/20/2014 82063-Vpiuloor Plate 09/19/2014 64121-Qkbnvyko Plate 05/10/2013 26856-Qbastzlx Plate 11/02/2012 22818-Wbbgikcz Plate 02/08/2013 36702-Sosbhzyr Plate 08/19/2011 41587-Emjwncqm Plate 07/22/2011 22383-Mvkdxohw Plate 05/25/2011 64953-Zxoonfya Plate 01/29/2011 94091-Umafmtfq Plate 11/02/2011 40549-Txluqsyw Plate 08/03/2022 27854-Qjbvltrw Plate 11/24/2021 30398-Grtvsuzn Plate Each Additional 11/2021 66704-HLJ 03/26/2015 93107-UEJ 02/08/2012 60655-KBN 12/13/2014 97204- Debride <25 sq cm 04/06/2012 43382- Debride <25 sq cm 02/23/2011 83775- Debride <25 sq cm 01/16/2015 57883- Debride <25 sq cm 04/25/2015 23368- Debride <25 sq cm 05/30/2015 42134-OFVKAIH SKIN/TISSUE 04/09/2015 32401-BNURMIA SKIN/TISSUE 01/02/2015 04638-LLROYHA SKIN/TISSUE 02/25/2012 72012-LEIHAGN SKIN/TISSUE 08/17/2012 98329 I&D ABSCESS- SIMPLE,SINGLE 012 [id number] I&D ABSCESS- SIMPLE,SINGLE 011 65923-Nlsjyikuy, Toes 11/01/2013 Insurance Providers Payer Name Payer Address Payer Phone Subscriber Number Group Number Insured Name Patient Relationship to Insured Coverage Start Date Coverage End Date [facility] [address] [place] [phone] [id number] Broderick Tesfaye Spouse - patient is the spouse of the insured Medical (General) History Medical History History ICD Code stomach ulcer thyroid disorder hypertension high triglycerides Surgical History Surgery Date(Month/Year) dilatation and curettage colonoscopy 05/24/2015 Gall bladder remover 11/27/21 HT repair R3rd toe 10/28/22 polyp removal from uterus 11/26/23
--- OUTSIDE RECORDS SUMMARY | 2025-04-10 13:48 | XMS_ITS | Patient Health Record ---
Author Organization [facility] Address [address] [place] [id number] Care Team Providers Care Learning Disabled Teacher Name Role Phone Tamar Bermudez MD Primary Care Provider Gumaro Campos Jr Unavailable Reason For Referral No Information Medications Medication SIG (Take, Route, Frequency, Duration) Notes Start Date End Date Status Tylenol Arthritis Pain PRN Active Tylenol PRN Active Elderberry Active Milk Thistle Active Vitamin B12 100 MCG Tablet 1 tablet Oral ly Once a day Active MiraLax (colon prep) 8.3 ounce ((238) grams mixed with Gatorade or Crystal Light orally begin at 5:00 p.m. the day before the procedure; Duration: 1 day 07/10/2020 Active Vitamin D3 Super Strength 2000 UNIT Tablet 1 Orally qd Active Levothyroxine Sodium 0.05 mg Tablet 1 tablet Orally Once a day Active Atenolol 25 MG Tablet 1 tablet Orally On ce a day Active Immunizations Vaccine Route Administration Date Status Comme nts Influenza Unknown 07/10/2020 Refused Social History Tobacco Use: Social History Observation Description Date Details (start date - stop date) Former Smoker NA - NA Social History Drugs/Alcohol: Social Info Question Answer Notes Alcohol Screen Did you have a drink containing alcohol in the past year? No Points 0 Interpretation Negative Tobacco Use: Social Info Question Answer Notes Tobacco Use/Smoking Patient is a former smoker How long has it been since you last smoked? > 10 years Additional Details Category Social Info Options Details Miscellaneous: Marital status: Occupation: unemployed Problems Problem Type SNOMED Code ICD Code Onset Dates Problem Status W/U Status Risk Notes Problem Colon cancer screening (674190280) Colon cancer screening (Z12.11) Active confirmed Problem Rectal bleeding (51046038) Rectal bleeding (K62.5) Active confirmed Problem History of polyp of colon (situation) (952529311) Personal history of colonic polyps (Z86.010) Active confirmed Plan Of Treatment Future Test Test Name Order Date COLONOSCOPY 05/17/2015 COLONOSCOPY 07/10/2020 Insurance Providers Payer Name Payer Address Payer Phone Subscriber Number Group Number Insured Name Patient Relationship to Insured Coverage Start Date Coverage End Date [facility] [address] [place], [place] [id number] JOSÉ MIGUEL QUINTANILLA Self - patient is the insured Medical (General) History Medical History History ICD Code tubular adenoma 2009, last colonoscopy , five-year followup 06/09. hypothyroidism hypertension D&C Denies MT,DM,CVA,Lung disease,renal dise ase Surgical History Surgery Date(Month/Year) dilatation and curettage toenail removal left finger surgery
--- OUTSIDE RECORDS SUMMARY | 2025-04-10 13:48 | XMS_ITS | Clinical Summary ---
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 Name Role Phone Physician, Pcp Unknown Primary Care Provider Dee Dee vailable Social History Tobacco Use Types Packs/Day Years Used Date Smoking Tobacco: Never Assessed Comments Unknown Sex and Gender Information Value Date Recorded Sex Assigned at Not on file Legal Sex Female 3:53 AM EST Gender Identity Not on file Sexual Orientation Not on file Plan of Treatment Health Maintenance Due Date Last Done Comments Breast Cancer Screening 1960 Colorectal Cancer Screening: Colonoscopy 1962 DTaP,Tdap,and Td Vaccines (1 - Tdap) 1981 Pneumococcal Vaccine: 50+ Ye ars (1 of 1 - PCV) 2012 Zoster Vaccines (1 of 2) 2012 HIV Screening 03/22/2022 Hepatitis C Screening 03/22/2022 Social Influencers of Health Screening 03/22/2022 Depression Screening 04/19/2024 COVID-19 Vaccine (1 - 2024-2 6 season) 2024 Influenza Vaccine (#1) 2024 Cervical Cancer Screening: P ap Smear 08/22/2027 08/21/2024 RSV Immunization Adult Patie nts (1 - 1-dose 75+ series) 2037 HIB Vaccines Aged Out No longer eligi ble based on patient's age to complete this topic HPV Vaccines Aged Out No longer eligi ble based on patient's age to complete this topic Hepatitis A Vaccines Aged Out No long er eligible based on patient's age to complete this topic Hepatitis B Vaccines Aged Out No long er eligible based on patient's age to complete this topic IPV Vaccines Aged Out No longer eligi ble based on patient's age to complete this topic MMR Vaccines Aged Out No longer eligi ble based on patient's age to complete this topic Meningococcal ACWY Vaccine Aged Out N o longer eligible based on patient's age to complete this topic Meningococcal B Vaccine Aged Out No l onger eligible based on patient's age to complete this topic RSV Immunization Patients Un aaron 20 months Aged Out No longer eligible b ased on patient's age to complete this topic Varicella Vaccines Aged Out No longer eligible based on patient's age to complete this topic Procedures Procedure Name Priority Date/Time Associated Diagnosis Comments PAP SMEAR Routine 08/21/2024 12:00 PM EDT Encounter for gynecological examination (general) (routine) without abnormal findings from Last 3 Months or Most Recently Relevant to Health Maintenance Results * Pap smear (08/21/2024 12:00 PM EDT) Interpretation Negative for intraepithelial lesion or malignancy 08/23/2024 10:35 AM [facility] at 1035 EDT General Categorization Negative 08/23/2024 10:35 AM [facility] Specimen Adequacy Satisfactory for evaluation, endocervical/astudillo sformation zone component absent 08/23/2024 10:35 AM [facility] Pap Methodology Liquid Based Pap Test 08/23/2024 10:35 AM [facility] Disclaimer The Pap test is a screening test which carries an inherent false negative rate. These test results should be correlated with the patient's clinical findings and history. This Pap test was processed using an automated screening system. Technical cytopathology services provided by [facility], at [address] [place] [id number] (CLIA # [id number]/Sheldon Cook MD, Senior It Auditor.) 08/23/2024 10:35 AM [facility] Console Pap Interpretation Reported 08/23/2024 10:35 AM [facility] Brushing/Spatula Cervix uteri structure / Unknown 08/21/2024 12:00 PM EDT 08/22/2024 6:58 AM EDT us Cristofer Enrique MD LAB CYTOLOGY ORDERABLES Final Result [facility] [address] [place] [address], [place] [phone] from Last 3 Months or Most Recently Relevant to Health Maintenance Insurance [facility]IC[facility] Care Teams Power Generation Plant Operator Relationship Specialty Start Date End Date Physician, Pcp Unknown PCP - General 08/22/24
--- OUTSIDE RECORDS SUMMARY | 2025-04-10 13:48 | XMS_ITS | Encounter Summary ---
Author Organization [facility] Address [address] [place] [address] Care Team Providers Care Personnel Interviewer Name Role Phone Physician, Pcp Unknown Primary Care Provider Dee Dee vailable Encounter Details Date Type Department Care Team (Latest Contact Info) Description 08/22/[address] [facility] [address] [place] [address] Cristofer Enrique MD [address] [phone] Encounter for gynecological examination (general) (routine) without abnormal findings Social History Tobacco Use Types Packs/Day Years Used Date Smoking Tobacco: Never Assessed Comments Unknown Sex and Gender Information Value Date Recorded Sex Assigned at Not on file Legal Sex Female 3:53 AM EST Gender Identity Not on file Sexual Orientation Not on file documented as of this encounter Plan of Treatment Not on file documented as of this encounter Procedures Procedure Name Priority Date/Time Associated Diagnosis Comments PAP SMEAR Routine 08/21/2024 12:00 PM EDT Encounter for gynecological examination (general) (routine) without abnormal findings documented in this encounter Results * Pap smear (08/21/2024 12:00 PM EDT) Interpretation Negative for intraepithelial lesion or malignancy 08/23/2024 10:35 AM EDT [facility] at 1035 EDT General Categorization Negative 08/23/2024 10:35 AM EDT [facility] Specimen Adequacy Satisfactory for evaluation, endocervical/astudillo sformation zone component absent 08/23/2024 10:35 AM EDT [facility] Pap Methodology Liquid Based Pap Test 08/23/2024 10:35 AM EDT [facility] Disclaimer The Pap test is a screening test which carries an inherent false negative rate. These test results should be correlated with the patient's clinical findings and history. This Pap test was processed using an automated screening system. Technical cytopathology services provided by [facility], at [address] [place] [address] (CLIA # [id number]/Sheldon Cook MD, Ct Tech.) 08/23/2024 10:35 AM EDT [facility] Console Pap Interpretation Reported 08/23/2024 10:35 AM T [facility] Brushing/Spatula Cervix uteri structure / Unknown 08/21/2024 12:00 PM EDT 08/22/2024 6:58 AM EDT us Cristofer Enrique MD LAB CYTOLOGY ORDERABLES Final Result [facility] [address] [place] [address], documented in this encounter Visit Diagnoses Diagnosis Encounter for gynecological examination (general) (routine) without abnormal findings documented in this encounter Care Teams Personnel Interviewer Relationship Specialty Start Date End Date Physician, Pcp Unknown PCP - General 08/22/24 documented as of this encounter
== END 2025-04-10 14:03 | disposition home or self-care (01) ==
LOC: HO.HMCH 12:47
PROVIDERS: PCP Internal Medicine; Visit Provider Internal Medicine
DX: Z00.00 Encounter for general adult medical examination without abnormal findings (principal); G47.33 Obstructive sleep apnea (adult) (pediatric); I10 Essential (primary) hypertension; E78.00 Pure hypercholesterolemia, unspecified; R73.02 Impaired glucose tolerance (oral); E03.9 Hypothyroidism, unspecified; E66.09 Other obesity due to excess calories; Z68.34 Body mass index [BMI] 34.0-34.9, adult; K21.9 Gastro-esophageal reflux disease without esophagitis; K76.0 Fatty (change of) liver, not elsewhere classified; Z12.11 Encounter for screening for malignant neoplasm of colon; M79.89 Other specified soft tissue disorders; H61.23 Impacted cerumen, bilateral